=== PATIENT | female | born 1965 | race Caucasian/White ===

== ENCOUNTER 2017-12-22 09:45 | Emergency (ER) | payer MEDICARE, SELFPAY ==
[2017-12-22 09:47] VITALS: BP 143/92; PULSE 113; RESP 16; TEMP 36.7; O2SAT 97; BMI 43.4
--- NOTE | 2017-12-22 10:02 | EKG12_ITS ---
Test Reason : DYSRHYTHMIA Blood Pressure : / mmHG Vent. Rate : 106 BPM Atrial Rate : 106 BPM P-R Int : 148 ms QRS Dur : 104 ms QT Int : 352 ms P-R-T Axes : 020 -26 -13 degrees QTc Int : 467 ms Sinus tachycardia Leftward axis Incomplete right bundle branch block Nonspecific T wave abnormality Abnormal ECG Confirmed by CALIN DELGADILLO, LE ([id number]), metropolitan editor WILMA PRYOR ([id number] on 12/24/2017 10:15:17 AM Referred By: TAYLOR Confirmed By:LE LAYTON MD
--- NOTE | 2017-12-22 10:02 | CT_ITS ---
STUDY: CT BRAIN WITHOUT CONTRAST REASON FOR EXAM: Female, 52 years old. Confusion RADIATION DOSAGE (If Supplied By Facility): CTDIvol = ( 44.99 ) mGy, DLP = ( 779.24 ) mGycm TECHNIQUE: Transaxial CT imaging of the brain was performed without administration of intravenous contrast material. Individualized dose optimization techniques were used for this CT. COMPARISON: 01/25/2013 FINDINGS: Normal soft tissue structures. Normal calvarium. Normal size ventricles and extra-axial spaces for the patient's age. Normal white matter tracts of the cerebral hemispheres. Normal basal ganglia and thalami. Normal brainstem. Normal cerebellum. There is no intracranial hemorrhage. There are no findings of an acute ischemic infarction. Normal visualized paranasal sinuses. CT/Brain/Head without Contrast IMPRESSION: Normal unenhanced CT scan of the brain. Electronically Signed: Camron Yu DO at 11:07 EST Tel , Service support ,
--- NOTE | 2017-12-22 10:03 | RAD_ITS ---
STUDY: X-RAY CHEST REASON FOR EXAM: Female, 52 years old. Generalized illness TECHNIQUE: PA and lateral views of the chest. COMPARISON: 01/14/2013 FINDINGS: Lungs are adequately inflated. Elevated right hemidiaphragm. Lungs are clear otherwise. There is no demonstrated pleural abnormality. Normal size heart. Normal mediastinum and oni. Normal visualized pulmonary arteries. Normal visualized aortic arch and descending thoracic aorta. Normal visualized thoracic spine. Normal visualized ribs, clavicles, and shoulders. There is no demonstrated abnormality of the visualized soft tissue structures of the upper abdomen. RAD/Chest PA and Lateral IMPRESSION: Elevated right hemidiaphragm. Lungs are clear. Electronically Signed: Carmon Yu DO at 11:29 EST Tel , Service support ,
[2017-12-22 10:22] LABS: Absolute Lymphocyte Count 2.06 X10^3/ul (0.83-4.51); Absolute Neutrophil Count 6.4 X10^3/uL (2.0-7.7); Basophil# 0.02 X10^3/uL; Basophil% 0.2 % (0-1); Eosinophil# 0.22 X10^3/uL; Eosinophils% 2.3 % (0-5); Hematocrit 43.5 % (37-47); Hemoglobin 13.8 g/dl (12.0-15.0); Lymphocyte # 2.06 X10^3/ul (4.0); Lymphocyte % 21.9 % (19-41); Mean Corp Hgb Conc 31.7 g/gl (32-36); Mean Corpuscular Hgb 30.1 pg (27.0-32.0); Mean Corpuscular Volume 94.8 fL (81-99); Mean Platelet Vol. 10.4 fl (6.2-12.0); Monocyte# 0.66 X10^3/uL; Neutrophil # 6.43 X10^3/uL (2.7-7.7); Neutrophil % 68.4 % (47-70); Platelet Count 285 K/mm3 (150-450); RBC Distribution Width CV 14.8 % (11.6-14.6); RBC Distribution Width SD 48.7 fl (35.1-43.9); Red Blood Count 4.59 M/mm3 (4.2-5.4); White Blood Count 9.4 K/mm3 (4.4-11.0)
[2017-12-22 10:23] LABS: POSITIVE COUNT NO; POSITIVE DIFFERENTIAL NO; POSITIVE MORPHOLOGY NO
--- NOTE | 2017-12-22 10:30 | ED.VISSUMM ---
- ER Visit Summary Date of Service: 12/22/17 Chief Complaint: Multiple complaints History of Present Illness: The patient is a 52 F presenting with multiple symptoms that have been present for the past year. She has been seeing her primary care physician and was diagnosed with depression and anxiety that occurred after her divorce a few years ago. Over the past year, she states that she has been eating quite a lot and has gained approximately 80 pounds. She subsequently has shortness of breath that is somewhat worse when she lays flat. She denies chest pain or abdominal pain at this time but her daughter states that she has complained of chest pain and shortness of breath at home intermittently for the past several months and her daughter also states that she has been somewhat confused at time and that her personality has changed over the past year. She has been taking antidepressants and anxiety medicine with some improvement. She did not want to come to the hospital today but her daughter and other family members were with her preparing for [employer] and talked her into coming here to get checked. They are concerned that she could have hypothyroidism or other electrolyte problem. She herself states that her symptoms are simply from weight gain and she has gained weight because she has been eating a lot more than she did in the past and her activity has decreased markedly. She admits to occasionally feeling depressed but denies ever having suicidal thoughts or ideation. Her family is not concerned for suicide risk either. Physical Examination: Vitals are within normal limits. She is not in distress. She is awake, alert, and interactive. She is smiling and well-appearing. Neck is supple. Heart tones are regular and without murmur. Lungs are clear bilaterally with good air movement. Abdomen is soft and nontender. She has no focal or lateralizing neuro findings. She does have 1+ symmetric lower extremity edema but no tenderness along the lower extremity venous system or palpable cords. Mental status examination is normal. Her thought content is normal. She denies suicidal thoughts or ideation. She is forward thinking. Judgment and thought content appears normal. Test Results: Labs are basically within normal limits. EKG is unremarkable. TSH normal. Beta atretic peptide normal. EKG unremarkable. Chest x-ray reveals an elevated right hemidiaphragm but no other obvious acute abnormalities. Emergency Department Course and Treatment: Her symptoms are basically chronic in nature. She has multiple family members at the bedside and they are quite worried about her weight gain and wanted an extensive evaluation done in the emergency department. I am not finding any obvious acute abnormalities and I think that she can safely be discharged home to follow-up with her primary care physician. They are comfortable with this and will assist with arranging these appointments. Treatment Plan: Follow-up with primary care physician Disposition: Home in stable condition Impression: Chronic pain, weight gain of uncertain etiology This note was generated with [employer] dictation software. It may contain incorrect words, spelling, and punctuation that were not noted in review of the chart prior to signing ED Disposition - Plan for ED Patient: Chief Complaint: General Illness Instructions: ED Chronic Pain Management Referrals: Charli Plunkett MD [Primary Care Provider] - As soon as possible
[2017-12-22 10:32] VITALS: BP 120/78; PULSE 109; RESP 21; O2SAT 92
[2017-12-22 10:43] LABS: ALB/GLOB Ratio 0.8 RATIO (0.9-2.4); AST(SGOT) 45 U/L (15-37); Alanine Aminotransfer ALT/SGPT 66 U/L (13-56); Albumin, Serum 3.1 g/dL (3.2-5.0); Alkaline Phosphatase 113 U/L (45-117); Anion Gap 8 (5-15); BUN 12 mg/dL (7-18); Calcium,Total 8.4 mg/dL (8.5-10.1); Chloride 107 mmol/L (98-107); EST Glomerular Filtration Rate 61 mL/min (>60); Est Glom Filt Rate - Afr Amer 74 mL/min (>60); Estimated Creatinine Clearance 57.87 ml/min; Globulin 4.1 g/dL (2.2-4.2); Glucose 130 mg/dL (74-106); Potassium 3.4 mmol/L (3.5-5.1); Protein, Total 7.2 g/dL (6.4-8.2); Sodium Level 140 mmol/L (136-145); Thyroid Stim Hormone (TSH) 2.81 uIU/mL (0.358-3.74)
[2017-12-22 10:51] LABS: BNP,B-Type NATRIURETIC PEPTIDE 3.1 pg/mL (0-100)
[2017-12-22 11:52] VITALS: BP 134/70; PULSE 75; RESP 14; O2SAT 94
== END 2017-12-22 12:03 | disposition home or self-care (01) ==
PROVIDERS: Emergency Provider Emergency Medicine; Family Provider Family Medicine; PCP Family Medicine
DX: R63.5 Abnormal weight gain (principal); G89.29 Other chronic pain; R07.9 Chest pain, unspecified; R06.02 Shortness of breath; R06.00 Dyspnea, unspecified; F32.9 Major depressive disorder, single episode, unspecified; F41.9 Anxiety disorder, unspecified; Z79.899 Other long term (current) drug therapy
CPT/HCPCS: 70450; 71046; 80053; 83880; 84443; 84484; 85025; 93005; 99284

== ENCOUNTER 2018-08-09 14:36 | Emergency (ER) | payer MEDICARE, SELFPAY ==
[2018-08-09 14:37] VITALS: BP 128/89; PULSE 104; RESP 18; TEMP 36.6; O2SAT 96; BMI 43.2
--- NOTE | 2018-08-09 15:49 | ED.VISSUMM ---
- ER Visit Summary Date of Service: 08/09/18 Chief Complaint: She presents after an injury to her left leg 2 weeks ago. History of Present Illness: The patient is a 52 F she developed a left lateral hematoma just below the knee, she was able to ambulate today she woke up and noticed ecchymoses in her ankle. Again she has no pain and is able to walk her only pain is at the site of impaction. Pain is mild unless she pushes on it and becomes moderate. Physical Examination: Otherwise unremarkable exam, she has a left sided hematoma right below the knee, some ecchymoses in her ankle no joint pain no bony tenderness over the tibia or fibular region. Able to ambulate without any difficulty. Emergency Department Course and Treatment: Patient was reassured, the ecchymosis is from extravasation into the soft tissues, she is reassured she is told about the time course of healing. She feels much better once I reassured her she wants to be discharged home I will send her home. Discharge stable condition Impression: Left leg hematoma This note was generated with [employer] dictation software. It may contain incorrect words, spelling, and punctuation that were not noted in review of the chart prior to signing ED Disposition - Plan for ED Patient: Disposition: Home or Assisted Living Chief Complaint: Lower Extremity Injury Instructions: Contusions (Bruises), ED Hematoma Referrals: Charli Plunkett MD [Primary Care Provider] - 3-5 Days
--- NOTE | 2018-08-09 15:53 | ED.DCSUM_ITS ---
- ER Visit Summary Date of Service: 08/09/18 Chief Complaint: She presents after an injury to her left leg 2 weeks ago. History of Present Illness: The patient is a 52 F she developed a left lateral hematoma just below the knee, she was able to ambulate today she woke up and noticed ecchymoses in her ankle. Again she has no pain and is able to walk her only pain is at the site of impaction. Pain is mild unless she pushes on it and becomes moderate. Physical Examination: Otherwise unremarkable exam, she has a left sided hematoma right below the knee , some ecchymoses in her ankle no joint pain no bony tenderness over the tibia or fibular region. Able to ambulate without any difficulty. Emergency Department Course and Treatment: Patient was reassured, the ecchymosis is from extravasation into the soft tissues, she is reassured she is told about the time course of healing. She feels much better once I reassured her she wants to be discharged home I will send her home. Discharge stable condition Impression: Left leg hematoma This note was generated with [employer] dictation software. It may contain incorrect words, spelling, and punctuation that were not noted in review of the chart prior to signing ED Disposition - Plan for ED Patient: Disposition: Home or Assisted Living Chief Complaint: Lower Extremity Injury Instructions: Contusions (Bruises), ED Hematoma Referrals: Charli Plunkett MD [Primary Care Provider] - 3-5 Days
[2018-08-09 15:55] VITALS: PULSE 96; RESP 16; O2SAT 97
== END 2018-08-09 16:04 | disposition home or self-care (01) ==
PROVIDERS: Emergency Provider Emergency Medicine; Family Provider Family Medicine; PCP Family Medicine
DX: S80.12XA Contusion of left lower leg, initial encounter (principal); W19.XXXA Unspecified fall, initial encounter; Y93.9 Activity, unspecified; Y92.9 Unspecified place or not applicable; Y99.9 Unspecified external cause status; F32.9 Major depressive disorder, single episode, unspecified; Z79.899 Other long term (current) drug therapy
CPT/HCPCS: 99282

== ENCOUNTER 2018-09-08 13:15 | Emergency (ER) | payer MEDICARE, SELFPAY ==
[2018-09-08 13:16] VITALS: BP 141/76; PULSE 132; RESP 26; TEMP 35.5; O2SAT 96; BMI 41.6
--- NOTE | 2018-09-08 14:07 | ED.DCSUM_ITS ---
- ER Visit Summary Date of Service: 09/08/18 Chief Complaint: Migraine History of Present Illness: The patient is a 52 F with a headache. It feels similar to prior migraines. This started this morning. Nothing seemed to bring it on. Associated with nausea and vomiting. Patient has not taken anything for it. No trauma. No fevers. No weakness or numbness. No vision changes or speech changes. Physical Examination: Heart rate 132 and respiratory rate 26. Otherwise vitals unremarkable. Patient appears uncomfortable. She is sitting in a dark room. No acute distress. Alert and oriented. HEENT exam unremarkable. Cranial nerves grossly intact. Normal strength and sensation. Normal coordination. Skin appears normal. Test Results: None indicated Emergency Department Course and Treatment: Patient has multiple drug allergies. She was treated with fluids, Compazine, and Benadryl. Will reassess. On reevaluation, the patient's headache has resolved. There is no indication for imaging or other diagnostic testing. Patient will be discharged. Return for any new or worsening issues. Treatment Plan: As above Disposition: Discharge Impression: 1. Acute migraine This note was generated with [employer] dictation software. It may contain incorrect words, spelling, and punctuation that were not noted in review of the chart prior to signing ED Disposition - Plan for ED Patient: Chief Complaint: Headache Referrals: Charli Plunkett MD [Primary Care Provider] -
[2018-09-08] MEDS: proCHLORPERazine 10 MG/2 ML Vial IV (14:43)
[2018-09-08] MEDS: DiphenhydrAMINE 50 MG/ML Syringe IV (14:43)
[2018-09-08] MEDS: 0.9% Normal Saline 1,000 ML 999 ML IV (14:44)
--- NOTE | 2018-09-08 15:39 | ED.DEP ---
ED Disposition - Plan for ED Patient: Chief Complaint: Headache Instructions: ED Headache Migraine Referrals: Charli Plunkett MD [Primary Care Provider] -
[2018-09-08 15:46] VITALS: PULSE 87; RESP 17; O2SAT 99
== END 2018-09-08 15:47 | disposition home or self-care (01) ==
PROVIDERS: Emergency Provider Emergency Medicine; Family Provider Family Medicine; PCP Family Medicine
DX: G43.909 Migraine, unspecified, not intractable, without status migrainosus (principal); R11.2 Nausea with vomiting, unspecified; Z79.899 Other long term (current) drug therapy
CPT/HCPCS: 96361; 96374; 96375; 99285; J7030

== ENCOUNTER 2019-11-22 15:58 | Emergency (ER) | payer MEDICARE, MEDICAID, SELFPAY ==
[2019-11-22 15:58] VITALS: BP 120/73; PULSE 110; RESP 16; TEMP 37.1; O2SAT 92; BMI 43.2; BMI 43.4
--- NOTE | 2019-11-22 16:57 | RAD_ITS ---
STUDY: X-RAY - THORACIC SPINE REASON FOR EXAM: Female, 54 years old. fall, back pain TECHNIQUE: 4 view(s) of the thoracic spine were obtained. COMPARISON: None. FINDINGS: Normal kyphosis of the thoracic spine. There is no substantial scoliosis. There is multilevel endplate spondylosis of the thoracic vertebrae. There is multilevel disc space narrowing of the thoracic spine. The soft tissue structures are unremarkable. RAD/Thoracic Spine 2 Views IMPRESSION: No acute findings Electronically Signed: Camron Yu DO at 18:35 EST Tel , Service support ,
--- NOTE | 2019-11-22 17:03 | ED.DCSUM_ITS ---
History of Present Illness Chief Complaint: Back Informant: Patient Occurred: Hours - 1.5 Mechanism/Context: Same level fall - My legs gave out from underneath of me Location: back Quality of Pain: Aching Current Severity: Moderate Maximum Severity: Moderate Worsened by: moving, walking Relieved by: remaining still Associated Symptoms: Negative for: Parasthesias, Weakness, Loss of function, Inability to ambulate, Loss of consciousness, Amnesia Narrative: Patient states for the past several years her legs have randomly given out on her, and that occurred again today. As a result, she fell down the carpeted floor and hit her back against a wall. This was in her house. She is complaining of pain across her low back, nonlateralizing. She states after this fall she was able to get up and walk, her legs are working fine now. She denies any numbness, bowel or bladder dysfunction, or saddle anesthesia. She states she has no idea why her legs been giving out for 2 years or more, but then states she had an MRI 2 years ago that diagnosed bulging disks and spinal stenosis. She has never seen a back specialist for those results. - Past Medical History (1) Spinal stenosis Status: Chronic (2) Chronic back pain Status: Chronic (3) Degenerative disc disease, lumbar Status: Chronic (4) Depression Status: Chronic Past Medical History - Allergies and Home Meds Allergies/Adverse Reactions: Allergies NSAIDS (Non-Steroidal Anti-Inflamma Allergy (Verified 08/09/18 14:39) Rash Sulfa (Sulfonamide Antibiotics) Allergy (Verified 08/09/18 14:39) Rash morphine Adverse Reaction (Mild, Verified 08/09/18 14:39) Unknown NAUSEA VOMITING, STOMACH CRAMPS iodine Adverse Reaction (Verified 08/09/18 14:39) Vomiting Primary Care Physician: Charli Plunkett MD [Primary Care Provider] - 1 Week if not improving Surgical History: cholecystectomy, hysterectomy, - - Carpal tunnel Lives: With Family Smoking Status: Never smoker Review of Systems Gastrointestinal: Denies: Abdominal pain, Nausea, Vomiting, Diarrhea, Melena, Hematochezia Genitourinary: Denies: Dysuria, Hematuria, Frequency Musculoskeletal: Reports: Back pain. Denies: Neck pain, Swelling, Extremity Pain Skin: Reports: Abrasions - right forearm. Denies: Wounds Neurological: Denies: Headache, Weakness, Parasthesia, Numbness Physical Exam Vital Signs/Narrative: Vital Signs Temp Pulse Resp BP Pulse Ox 11/22/19 15:58 98.7 F 110 H 16 120/73 92 Inital Vital Signs reviewed: Yes General: Well nourished, Well developed, Obese Head: Normocephalic, Atraumatic. Negative for: Tenderness Eyes: Perrl, EOMI Neck: Nontender, Full ROM Back: - - Diffuse tenderness throughout the thoracic and lumbar spine as well as the paraspinal areas in the lumbosacral region including both pelvic brim's. Pelvis is stable. No obvious signs of trauma on inspection. Extremeties: Full range of motion throughout all joints of all 4 extremities. Skin: Normal color, No rash, Trauma - superficial linear abrasion volar distal right forearm. Neurological: Alert, Oriented x3, Cranial nerves II-XII grossly intact, Normal Strength, Normal Sensation, Normal DTR, Normal Gait Psychological: Normal affect, Normal Mood Diagnostic/Tx/Re-eval - Medical Decision Making On my interpretation, 4 views of the thoracic spine are negative for acute, and 2 views of the lumbar spine show no acute fractures either. She was given an oxycodone. She was ambulatory in the hallways without difficulty. She was advised to follow-up with her doctor regarding her old MRI results, and possible referral to specialist as an outpatient. She does not have cauda equina synd nitesh. Results of radiography returned showing a superior endplate compression fracture of L1, new compared with her old films, however age-indeterminate. Given her mechanism of falling against the wall, I suspect this is not acute from this injury. She is in chronic pain management, has [place] at home to take as needed for pain, and is ambulatory here without any significant discomfort. This is probably age related, or a remote injury, another reason for the patient to follow-up though. ED Disposition - Plan for ED Patient: Disposition: Home or Assisted Living Diagnosis: Acute exacerbation of chronic low back pain, Back contusion, Fall from standing, Spinal stenosis Instructions: CONTUSION, Back Referrals: Charli Plunkett MD [Primary Care Provider] - 1 Week if not improving
[2019-11-22] MEDS: oxyCODONE 5 MG Tablet PO (17:09)
--- NOTE | 2019-11-22 17:30 | RAD_ITS ---
STUDY: X-RAY - LUMBAR SPINE REASON FOR EXAM: Female, 54 years old. fall, low back pain TECHNIQUE: 2 view(s) of the lumbar spine were obtained. COMPARISON: 06/16/2015 FINDINGS: Normal lumbar lordosis. There is no substantial scoliosis. There is a normal alignment of the vertebrae. There is multilevel endplate spondylosis of the lumbar vertebrae. Normal disc space heights. There is no demonstrated fracture. Age indeterminate fracture of the L1 vertebral body; new from 2014 exam The soft tissue structures are unremarkable. RAD/Lumbar Spine 2 or 3 Views IMPRESSION: As above. Age-indeterminate compression fracture of the superior endplate of L1, new from 2014 exam Electronically Signed: Camron Yu DO at 18:34 EST Tel , Service support ,
[2019-11-22 18:26] VITALS: BP 109/77; PULSE 62; RESP 15; O2SAT 95
== END 2019-11-22 18:27 | disposition home or self-care (01) ==
PROVIDERS: Emergency Provider Emergency Medicine; Family Provider Family Medicine; PCP Family Medicine
DX: S30.0XXA Contusion of lower back and pelvis, initial encounter (principal); W18.39XA Other fall on same level, initial encounter; Y93.89 Activity, other specified; Y92.009 Unspecified place in unspecified non-institutional (private) residence as the place of occurrence of the external cause; M48.00 Spinal stenosis, site unspecified; M51.36 Other intervertebral disc degeneration, lumbar region; G89.29 Other chronic pain; F32.9 Major depressive disorder, single episode, unspecified; E66.9 Obesity, unspecified; Z68.41 Body mass index [BMI] 40.0-44.9, adult
CPT/HCPCS: 72070; 72100; 99283

== ENCOUNTER 2020-08-15 16:46 | Emergency (ER) | payer MEDICARE, MEDICAID, SELFPAY ==
[2019-11-22 15:58] VITALS: BMI 43.2
[2020-08-15 16:47] VITALS: BP 124/51; PULSE 121; RESP 24; TEMP 36.4; O2SAT 91; BMI 41.1
[2020-08-15 16:50] VITALS: O2SAT 93
--- NOTE | 2020-08-15 17:12 | EKG12_ITS ---
Test Reason : Blood Pressure : / mmHG Vent. Rate : 116 BPM Atrial Rate : 116 BPM P-R Int : 156 ms QRS Dur : 112 ms QT Int : 334 ms P-R-T Axes : 032 -28 -05 degrees QTc Int : 464 ms Sinus tachycardia Incomplete right bundle branch block Nonspecific ST and T wave abnormality Abnormal ECG Confirmed by TANVI DELGADILLO, JANELLE ([id number]), commissioning editor KIERRA ASCENCIO ([id number]) on 08/17/2020 8:32:40 AM Referred By: ERICK Confirmed By:JANELLE TINAJERO MD
--- NOTE | 2020-08-15 17:12 | CT_ITS ---
STUDY: CT BRAIN WITHOUT CONTRAST REASON FOR EXAM: Female, 54 years old. S/P FALL -- FREQUENT FALLS RECENTLY -- HX- CVA RADIATION DOSAGE (If Supplied By Facility): CTDIvol = ( 44.99 ) mGy, DLP = ( 812.98 ) mGycm TECHNIQUE: Transaxial CT imaging of the brain was performed without administration of intravenous contrast material. Individualized dose optimization techniques were used for this CT. COMPARISON: 12/22/2017 FINDINGS: Normal soft tissue structures. Hyperostosis frontalis interna. Normal size ventricles and extra-axial spaces for the patient''s age. There are areas of decreased attenuation within the white matter tracts of the supratentorial brain, consistent with microvascular disease changes. Age-related changes of the basal ganglia. Normal brainstem. Normal cerebellum. There is no intracranial hemorrhage. There are no findings of an acute ischemic infarction. Normal visualized paranasal sinuses. CT/Brain/Head without Contrast IMPRESSION: No fracture or intracranial hemorrhage. Electronically Signed: Kurt Sosa MD at 18:19 EDT Tel , Service support ,
[2020-08-15] MEDS: 0.9% Normal Saline 1,000 ML 1000 ML IV (17:37)
[2020-08-15] MEDS: Acetaminophen 500 MG Tablet 1000 MG PO (17:37)
[2020-08-15] MEDS: Ondansetron 4 MG/2 ML Vial IV (17:38)
[2020-08-15] MEDS: fentaNYL 100 MCG/2 ML Ampul 50 MCG IV (17:38)
--- NOTE | 2020-08-15 17:50 | RAD_ITS ---
STUDY: X-RAY - LUMBAR SPINE REASON FOR EXAM: Female, 54 years old. FREQUENT FALLS AND SHAKING. PT STATES CHRONIC BACK PAIN. TECHNIQUE: 3 view(s) of the lumbar spine were obtained. COMPARISON: 11/22/2019 FINDINGS: Normal lumbar lordosis. There is no substantial scoliosis. There is a normal alignment of the vertebrae. Interval progression of a compression deformity involving the superior endplate of L1, now with anterior loss of height of approximately 20%. Normal disc space heights. The soft tissue structures are unremarkable. RAD/Lumbar Spine 2 or 3 Views IMPRESSION: Interval progression of a compression deformity involving the superior endplate of L1, now with anterior loss of height of approximately 20%. Electronically Signed: Kurt Sosa MD at 18:26 EDT Tel , Service support ,
[2020-08-15 18:07] LABS: Absolute Lymphocyte Count 1.82 X10^3/uL (0.83-4.51); Absolute Neutrophil Count 11.7 X10^3/uL (2.0-7.7); Basophil# 0.04 X10^3/uL; Basophil% 0.3 % (0-1); Eosinophil# 0.06 X10^3/uL; Eosinophils% 0.4 % (0-5); Hematocrit 46.1 % (37-47); Hemoglobin 14.5 g/dL (12.0-15.0); Lymphocyte # 1.82 X10^3/ul (4.0); Lymphocyte % 12.4 % (19-41); Mean Corp Hgb Conc 31.5 g/dL (32-36); Mean Corpuscular Hgb 28.7 pg (27.0-32.0); Mean Corpuscular Volume 91.1 fL (81-99); Mean Platelet Vol. 10.8 fl (6.2-12.0); Monocyte% 6.8 % (0-10); NRBC Flagged by Analyzer 0 % (0-5); Neutrophil # 11.68 X10^3/uL (2.7-7.7); Neutrophil % 79.8 % (47-70); Platelet Count 376 K/mm3 (150-450); RBC Distribution Width CV 14.4 % (11.6-14.6); RBC Distribution Width SD 48.1 fl (35.1-43.9); Red Blood Count 5.06 M/mm3 (4.2-5.4); White Blood Count 14.6 K/mm3 (4.4-11.0)
[2020-08-15 18:21] LABS: ALB/GLOB Ratio 0.7 RATIO (0.9-2.4); AST(SGOT) 35 U/L (15-37); Alanine Aminotransfer ALT/SGPT 46 U/L (13-56); Albumin, Serum 3.1 g/dL (3.2-5.0); Alkaline Phosphatase 114 U/L (45-117); Anion Gap 8 (5-15); BUN 12 mg/dL (7-18); BUN/Creat Ratio 10.4 RATIO (10-20); Calcium,Total 9.3 mg/dL (8.5-10.1); Chloride 105 mmol/L (98-107); Creatinine, Serum 1.15 mg/dL (0.55-1.02); EST Glomerular Filtration Rate 52 mL/min (>60); Est Glom Filt Rate - Afr Amer 63 mL/min (>60); Estimated Creatinine Clearance 51.14 ml/min; Globulin 4.4 g/dL (2.2-4.2); Glucose 135 mg/dL (74-106); Protein, Total 7.5 g/dL (6.4-8.2); Sodium Level 138 mmol/L (136-145)
[2020-08-15 18:25] LABS: CPK Total, Creatine Kinase 129 U/L (26-192); Lactic Acid 1.9 mmol/L (0.4-1.9)
[2020-08-15 19:38] VITALS: PULSE 111; RESP 24; O2SAT 92
--- NOTE | 2020-08-15 19:40 | RAD_ITS ---
STUDY: X-RAY CHEST REASON FOR EXAM: Female, 54 years old. WEAKNESS, CONFUSION TECHNIQUE: Single frontal view of the chest. COMPARISON: 12/22/2017 FINDINGS: Left basilar atelectasis. There is no demonstrated pleural abnormality. Normal size heart. Normal mediastinum and oni. Normal visualized pulmonary arteries. Normal visualized aortic arch and descending thoracic aorta. Normal visualized thoracic spine. Normal visualized ribs, clavicles, and shoulders. There is no demonstrated abnormality of the visualized soft tissue structures of the upper abdomen. RAD/Chest 1 View (Portable) IMPRESSION: Left basilar atelectasis. Electronically Signed: Kurt Sosa MD at 20:18 EDT Tel , Service support ,
[2020-08-15 20:01] LABS: Bacteria 0 SEEN /hpf (None Seen)
[2020-08-15 20:06] LABS: Color, Urine Amber (Yellow); Glucose, Dipstick Normal (Normal); Ketone-Dipstick 5 mg/dl (Negative); Leukocyte Esterase-Dipstick 100 /ul (Negative); Nitrite-Dipstick Negative (Negative); Occult Blood-Urine 50 /ul (Negative); Protein-Dipstick 30 mg/dl (Negative); Urine Clarity Sl. Cloudy (Clear); Urine Urobilinogen 4 mg/dl (Normal)
[2020-08-15 20:15] LABS: Urine Bilirubin Dipstick 1 mg/dL (Negative)
[2020-08-15 20:17] LABS: Red Blood Cells-Urine 5-10 SEEN /hpf (0-5)
[2020-08-15 20:18] LABS: Mucous, Urine 2+ /hpf (<or=2+); Squamous Epithelial Cells - UA 5-10 SEEN /hpf (5-10); White Blood Cells 0-5 SEEN /hpf (0-5)
[2020-08-15 20:20] LABS: Hyaline Cast 5-10 SEEN /lpf (0-5)
--- NOTE | 2020-08-15 20:45 | ED.VISSUMM ---
- ER Visit Summary Date of Service: 08/15/20 Chief Complaint: Fall History of Present Illness: The patient is a 54 F sees Tj Nash. She is a poor informant. She reports that at times she feels shaky and her legs are jiggly. When this occurs she falls. She states that she fell today. She complains of back pain that is worse than usual following this. She also fell 1 week ago. She denies any blow to the head or loss of consciousness with either of these falls. She is not on anticoagulants. She reports she has chronic neck pains unchanged. She denies any shoulder, wrist, or hip pain. On review of systems patient complains that she also has chronic abdominal pain. She is been nausea and vomited 3-4 times yesterday. No blood in her emesis. No diarrhea. Her last bowel was today. No melena or hematochezia. No dysuria or frequency. She denies any other complaints. Physical Examination: Vitals: Stable. Afebrile. General: Well-nourished and well-developed. Head: Normocephalic atraumatic. Neck: Supple, no lymphadenopathy. No JVD. Nontender. Cardiovascular: Regular rate and rhythm. No murmurs. Respiratory: No respiratory distress. Clear to auscultation bilaterally. Abdominal: Soft, nontender, nondistended, normal bowel sounds. No guarding, rebound, or peritoneal signs. Back: Moderate tensional patient is diffuse over the lumbar spine Extremities: Nontender, no edema. Skin: Normal color, no rash. Neurologic: Alert and oriented ?3. Cranial nerves II through XII are intact. Normal strength and sensation. Psych: Depressed. Test Results: EKG is sinus tachycardia 116 with an incomplete right bundle branch block. This is unchanged from 2018. Troponin is negative. CPK is 129. Lactic acid is 1.9. UA is negative. LFTs marked for albumin 3.1 globulin 4.4. Chem-7 is marked for potassium 3.0, creatinine 1.15, glucose 135. CBC shows a white count 14.6 with 80 segmented neutrophils and 12 lymphocytes. TSH is 2.5. Clinical Impression(s) from Imaging Studies Brain CT 08/15/20 17:12 IMPRESSION: No fracture or intracranial hemorrhage. Electronically Signed: Kurt Sosa MD at 18:19 EDT Tel , Service support , Lumbar Spine X-Ray 08/15/20 17:50 IMPRESSION: Interval progression of a compression deformity involving the superior endplate of L1, now with anterior loss of height of approximately 20%. Electronically Signed: Kurt Sosa MD at 18:26 EDT Tel , Service support , Chest X-Ray 08/15/20 19:40 IMPRESSION: Left basilar atelectasis. Electronically Signed: Kurt Sosa MD at 20:18 EDT Tel , Service support , Emergency Department Course and Treatment: Patient was given K. Dur, Tylenol, and Zofran p.o. She was given fentanyl IV. She is resting more comfortably. Treatment Plan: Patient feels comfortable going home. Infectious quite adamant that she does not want to stay in the hospital. She will be discharged with instructions to follow-up with Dr. Ramsey in 3 to 5 days to see if she is a candidate for kyphoplasty. She given a prescription for [place] and Colace. She does not want to take oral potassium. She is instructed on a high potassium diet. Return to the emergency department for any worsening symptoms. Disposition: To home in improved and stable condition. Impression: 1 1. Acute on chronic L1 compression fracture. 2. Hypokalemia. 3. Generalized weakness. 4. Fall. This note was generated with [employer] dictation software. It may contain incorrect words, spelling, and punctuation that were not noted in review of the chart prior to signing ED Disposition - Plan for ED Patient: Disposition: Home or Assisted Living Instructions: ED Fx Comp Vertebral, ED Prevention Fall Prescriptions: Docusate Sodium [Colace] 100 mg PO DAILY #20 cap Prescription Printed Hydrocodone Bitart/Apap 5-325 [[place] 5MG-325MG] 1 tab PO Q4H PRN PRN 2 Days #10 tab PRN Reason: Pain Prescription Printed Referrals: Shyann Ramsey MD [STAFF PHYSICIAN] - 3-5 Days Kenya Nash PA [Primary Care Provider] - As soon as possible
[2020-08-15] MEDS: HYDROcodone Bitartrate/Apap 5/325 Tablet PO (20:59)
[2020-08-15 21:00] VITALS: BP 152/90; PULSE 109; RESP 21; O2SAT 95
== END 2020-08-15 21:01 | disposition home or self-care (01) ==
LOC: ED 17:26
PROVIDERS: Emergency Provider Emergency Medicine; PCP Physician Assistant
DX: S32.019A Unspecified fracture of first lumbar vertebra, initial encounter for closed fracture (principal); W19.XXXA Unspecified fall, initial encounter; Y93.9 Activity, unspecified; Y92.9 Unspecified place or not applicable; Y99.9 Unspecified external cause status; R29.6 Repeated falls; E87.6 Hypokalemia; R53.1 Weakness; I10 Essential (primary) hypertension; Z86.73 Personal history of transient ischemic attack (TIA), and cerebral infarction without residual deficits
CPT/HCPCS: 70450; 71045; 72100; 80053; 81001; 82550; 83605; 84443; 84484; 85025; 87040; 87086; 87088; 93005; 96361; 96374; 96375; 99285; J7030; P9612; A4216; J2405

== ENCOUNTER 2021-07-15 12:10 | Emergency (ER) | payer MEDICARE, MEDICAID, SELFPAY ==
[2021-07-15 12:11] VITALS: BP 127/79; PULSE 120; RESP 20; TEMP 36.4; O2SAT 93; BMI 46.1
[2021-07-15 15:04] VITALS: BP 129/79; PULSE 112; RESP 23; RESP 24; TEMP 37; O2SAT 91; O2SAT 92
--- NOTE | 2021-07-15 15:31 | RAD_ITS ---
STUDY: X-RAY CHEST REASON FOR EXAM: Female, 55 years old. sob , headache TECHNIQUE: AP COMPARISON: 08/15/2020 FINDINGS: EKG leads project over the chest. Stable elevation of the right hemidiaphragm. No airspace consolidation. There is no demonstrated pleural abnormality. Normal size heart. Normal mediastinum and oni. Normal visualized pulmonary arteries. There is atherosclerotic tortuosity of the aortic arch and descending thoracic aorta. No acute bony process. There is no demonstrated abnormality of the visualized soft tissue structures of the upper abdomen. RAD/Chest 1 View (Portable) IMPRESSION: Stable, nonacute portable x-ray examination of the chest. Electronically Signed: Vernon Pimentel MD (Brooks) at 15:52 EDT , Service support ,
[2021-07-15] MEDS: Acetaminophen 500 MG Tablet 1000 MG PO (16:02)
[2021-07-15 16:06] LABS: Absolute Lymphocyte Count 1.81 X10^3/uL (0.83-4.51); Absolute Neutrophil Count 5.9 X10^3/uL (2.0-7.7); Basophil# 0.06 X10^3/uL; Basophil% 0.7 % (0-1); Eosinophil# 0.05 X10^3/uL; Eosinophils% 0.6 % (0-5); Hematocrit 49.5 % (37-47); Hemoglobin 15.2 g/dL (12.0-15.0); Lymphocyte # 1.81 X10^3/ul (0.83-4.51); Lymphocyte % 20.3 % (19-41); Mean Corp Hgb Conc 30.7 g/dL (32-36); Mean Corpuscular Hgb 28.6 pg (27.0-32.0); Mean Corpuscular Volume 93.2 fL (81-99); Mean Platelet Vol. 10.4 fl (6.2-12.0); Monocyte# 1.07 X10^3/uL; NRBC Flagged by Analyzer 0 % (0-5); Neutrophil # 5.88 X10^3/uL (2.7-7.7); Neutrophil % 66.1 % (47-70); Platelet Count 358 K/mm3 (150-450); RBC Distribution Width CV 14.6 % (11.6-14.6); RBC Distribution Width SD 50.9 fl (35.1-43.9); Red Blood Count 5.31 M/mm3 (4.2-5.4); White Blood Count 8.9 K/mm3 (4.4-11.0)
[2021-07-15 16:20] LABS: ALB/GLOB Ratio 0.6 RATIO (0.9-2.4); AST(SGOT) 145 U/L (15-37); Alanine Aminotransfer ALT/SGPT 93 U/L (13-56); Albumin, Serum 3.1 g/dL (3.2-5.0); Alkaline Phosphatase 107 U/L (45-117); Anion Gap 6 (5-15); BUN 12 mg/dL (7-18); BUN/Creat Ratio 11.2 RATIO (10-20); Calcium,Total 9.4 mg/dL (8.5-10.1); Chloride 101 mmol/L (98-107); Creatinine, Serum 1.07 mg/dL (0.55-1.02); EST Glomerular Filtration Rate 56 mL/min (>60); Est Glom Filt Rate - Afr Amer 68 mL/min (>60); Globulin 4.8 g/dL (2.2-4.2); Glucose 116 mg/dL (74-106); Potassium 3.8 mmol/L (3.5-5.1); Protein, Total 7.9 g/dL (6.4-8.2); Sodium Level 137 mmol/L (136-145)
[2021-07-15 16:22] VITALS: BP 124/69; PULSE 114; RESP 28; TEMP 37.4; O2SAT 94
[2021-07-15 16:44] LABS: Lactic Acid 1.9 mmol/L (0.4-1.9)
[2021-07-15 17:00] VITALS: BP 105/82; PULSE 109; RESP 21; TEMP 36.9; O2SAT 96
--- NOTE | 2021-07-15 17:25 | EDS_ITS ---
HPI History of Present Illness Chief Complaint: Shortness of Breath Informant: patient Onset/Context/Timing Onset: Days (2) Context: gradual Timing: Continuous Quality: Positive for Dyspnea on exertion Worsened by: Exertion Relieved by: Nothing Associated Symptoms cough and rhinorrhea; Negative for post nasal drip, clear sputum, white sputum, yellow sputum or green sputum Narrative Narrative: Patient presents with shortness of breath that has been getting worse over the past 2 days. Patient states it is gradually getting worse. Patient states her grandson tested positive for Covid recently. Patient states she did have her Covid vaccine. Patient states her breathing is worse with any exertion. Patient admits to a cough but denies any sputum production. Patient admits to a sore throat and rhinorrhea. Patient denies any ear pain. Patient admits to some subjective chills. Patient denies any chest pain. Patient states she was tested for Covid when her symptoms began and this was negative. PFSH PFS Medical History Anxiety Chronic indwelling Wahl catheter Depression Migraines Non-smoker Home Medications amitriptyline 300 mg PO QHS 08/15/20 [History Last Taken 08/14/20] docusate sodium 100 mg PO DAILY #20 cap 08/15/20 [Rx Last Taken Unknown] hydrocodone bitartrate 10 mg PO BID 08/15/20 [History Last Taken 08/15/20] Allergy/AdvReac Type Severity Reaction Status Date / Time NSAIDS (Non-Steroidal Allergy Rash Verified 08/15/20 16:52 Anti-Inflamma Sulfa (Sulfonamide Allergy Rash Verified 08/15/20 16:52 Antibiotics) morphine AdvReac Mild Unknown Verified 08/15/20 16:52 iodine AdvReac Vomiting Verified 08/15/20 16:52 Surgical History History of cholecystectomy Social History Smoking Status: Former smoker ROS ROS ED Constitutional Constitutional ED: Reports chills; Denies fever(s) Eyes Eyes: Denies blurry vision or change in vision ENT ENT ED: Denies rhinorrhea or sore throat Cardiovascular Cardiovascular: Denies chest pain or palpitations Respiratory/Chest Respiratory/Chest: Denies cough or dyspnea Gastrointestinal Gastrointestinal: Denies nausea or vomiting Genitourinary Genitourinary ED: Denies dysuria or hematuria Musculoskeletal Musculoskeletal: Reports back pain; Denies neck pain Integumentary Denies abscess or rash Neurologic Neurologic: Reports headache(s); Denies weakness Allergic/Immunologic Allergic/Immunologic ED: Denies mouth swelling or urticaria EXAM Physical Exam Const Vital Signs: 07/15/21 12:11 07/15/21 15:04 07/15/21 16:22 Temperature 97.6 F L 98.6 F 99.3 F H Temperature Source Temporal Oral Oral Pulse Rate 120 H 112 H 114 H Respiratory Rate 20 H 24 H 28 H Respiratory Effort Short of Breath Blood Pressure 127/79 H 129/79 H 124/69 H Blood Pressure Mean 95 95 87 Pulse Ox 93 91 94 Oxygen Delivery Method Room Air Room Air Room Air 07/15/21 17:00 07/15/21 17:50 Temperature 98.5 F 98.5 F Temperature Source Oral Oral Pulse Rate 109 H 107 H Respiratory Rate 21 H 32 H Respiratory Effort Blood Pressure 105/82 H 119/72 Blood Pressure Mean 89 87 Pulse Ox 96 91 Oxygen Delivery Method Room Air Room Air Positive well nourished, well developed and obese General Appearance ED: well developed Nutritional Appearance: obese HEENT Reports moist mucous membranes Neck supple and no JVD Resp normal respiratory effort and clear to auscultation bilaterally Auscultation: diminished lung sounds diffuse Cardio regular rate, regular rhythm and no murmurs GI normal to inspection, nondistended, normoactive bowel sounds and non-tender Palpation: soft Extremity normal to inspection General Extremety ED: Negative for edema or tenderness General Extremity: Negative for edema Neuro oriented x3, CN's II-XII intact bilaterally and no sensory deficits noted Sensorium / Orientation: alert Motor Exam: strength 5/5 throughout Psych mental status grossly normal Skin no rashes or lesions noted MDM MDM MDM Narrative Medical decision making narrative: COVID-19 rapid antigen was obtained and was negative. Patient was given IV fluids. Patient was given albuterol inhaler. Patient was given Tylenol. CBC and comprehensive metabolic profile were within normal limits. Lactate was normal. Portable 1 view chest x-ray was obtained. On my interpretation, lung mitchell are clear. There is normal cardiac silhouette. Bony thorax is normal. There is no acute process noted. Radiologist also interpreted the x-ray and agrees. Patient was able to ambulate here in the emergency department. Patient maintain oxygen saturation of 92 to 93% on room air while ambulating. Even though her COVID-19 rapid antigen was negative. Patient was still instructed to quarantine and take COVID-19 precautions. Patient was instructed to follow-up with her primary care physician in 3 to 5 days. Patient understood and was agreeable with the plan. All questions were answered. Lab Data Attestation: I reviewed the patient's lab results. Labs: Laboratory Results - last 24 hr 07/15/21 07/15/21 07/15/21 15:05 15:05 16:00 WBC 8.9 RBC 5.31 Hgb 15.2 H Hct 49.5 H MCV 93.2 MCH 28.6 MCHC 30.7 L RDW Std Deviation 50.9 H RDW Coeff of Drew 14.6 Plt Count 358 MPV 10.4 Immature Gran % (Auto) 0.300 Neut % (Auto) 66.1 Lymph % (Auto) 20.3 [place] % (Auto) 12.0 H Eos % (Auto) 0.6 Baso % (Auto) 0.7 Absolute Neuts (auto) 5.9 Absolute Lymphs (auto) 1.81 Nucleated RBC % 0 Sodium 137 Potassium 3.8 Chloride 101 Carbon Dioxide 30.0 Anion Gap 6 BUN 12 Creatinine 1.07 H Estim Creat Clear Calc 54.30 Est GFR (MDRD) Af Amer 68 Est GFR (MDRD) Non-Af 56 L BUN/Creatinine Ratio 11.2 Glucose 116 H Lactic Acid 1.9 Calcium 9.4 Total Bilirubin 0.30 AST 145 H ALT 93 H Alkaline Phosphatase 107 Total Protein 7.9 Albumin 3.1 L Globulin 4.8 H Albumin/Globulin Ratio 0.6 L Radiography Chest X-Ray - ED: 1 View, Read by ED Physician, Read by Radiologist and Normal Diagnostic Testing: Radiology Impression Chest X-Ray 07/15/21 15:31 IMPRESSION: Stable, nonacute portable x-ray examination of the chest. Electronically Signed: Vernon Pimentel MD (Bro[place]) at 15:52 EDT , Service support , Discharge Plan Triage Chief Complaint: Shortness of Breath ED Provider: Ace Dixon Dx/Rx/DC Orders Clinical Impression: Viral URI Instructions: ED URI, Viral, No Abx (Adult) Prescriptions: No Action hydrocodone bitartrate 10 mg capsule, oral only, ER 12hr 10 mg PO BID RF: 0 amitriptyline 100 MG tablet 300 mg PO QHS RF: 0 docusate sodium 100 MG capsule 100 mg PO DAILY Qty: 20 RF: 0 Primary Care Provider: Kenya Nash Referrals: Kenya Nash, PA [Primary Care Provider] - 3-5 Days Disposition Disposition: Home, Self Care
[2021-07-15 17:50] VITALS: BP 119/72; PULSE 107; RESP 32; TEMP 36.9; O2SAT 91
[2021-07-15 17:57] VITALS: O2SAT 93
== END 2021-07-15 18:56 | disposition home or self-care (01) ==
PROVIDERS: Emergency Provider Emergency Medicine; PCP Physician Assistant
DX: J06.9 Acute upper respiratory infection, unspecified (principal); Z87.891 Personal history of nicotine dependence
CPT/HCPCS: 71045; 80053; 83605; 85025; 87040; 87426; 94760; 96360; 96361; 99284; J7040; A4216

== ENCOUNTER 2021-10-06 15:35 | Emergency (ER) | payer MEDICARE, MEDICAID, SELFPAY ==
[2021-10-06 15:36] VITALS: BP 160/80; PULSE 98; RESP 20; TEMP 36.2; O2SAT 94; BMI 44.6
--- NOTE | 2021-10-06 15:40 | RAD_ITS ---
STUDY: X-RAY - LEFT WRIST REASON FOR EXAM: Female, 55 years old. INJURY TECHNIQUE: 3 view(s) of the wrist were obtained. COMPARISON: None. FINDINGS: Impacted comminuted intra-articular fracture of the distal radius with volar displacement. Avulsion fracture of the ulnar styloid. Normal radiocarpal articulation. Normal distal radioulnar articulation. Normal carpal bones. Normal carpal articulations. Normal carpometacarpal articulation of the thumb. Normal second through fifth carpometacarpal articulations. Normal visualized metacarpal bones. The soft tissue structures are unremarkable. RAD/Wrist min 3 Views IMPRESSION: Fractures distal radius and ulna as above. Electronically Signed: Hammad Núñez MD at 16:55 EST , Service support ,
--- NOTE | 2021-10-06 16:55 | EKG12_ITS ---
Test Reason : Blood Pressure : / mmHG Vent. Rate : 107 BPM Atrial Rate : 107 BPM P-R Int : 150 ms QRS Dur : 104 ms QT Int : 332 ms P-R-T Axes : 027 -17 -07 degrees QTc Int : 443 ms Sinus tachycardia T wave abnormality, consider anterior ischemia Abnormal ECG Confirmed by TANVI DELGADILLO, JANELLE ([id number]), mapping editor KIERRA ASCENCIO ([id number]) on 10/09/2021 1:20:04 PM Referred By: CHUCHO Confirmed By:JANELLE TINAJERO MD
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
[2021-10-06 17:29] LABS: Absolute Lymphocyte Count 1.67 X10^3/uL (0.83-4.51); Absolute Neutrophil Count 14.5 X10^3/uL (2.0-7.7); Basophil# 0.07 X10^3/uL; Basophil% 0.4 % (0-1); Eosinophils% 0.6 % (0-5); Hematocrit 44.2 % (37-47); Hemoglobin 13.7 g/dL (12.0-15.0); Lymphocyte # 1.67 X10^3/ul (0.83-4.51); Lymphocyte % 9.6 % (19-41); Mean Corpuscular Hgb 28.8 pg (27.0-32.0); Mean Corpuscular Volume 93.1 fL (81-99); Mean Platelet Vol. 10.4 fl (6.2-12.0); Monocyte# 1.02 X10^3/uL; Monocyte% 5.8 % (0-10); NRBC Flagged by Analyzer 0 % (0-5); Platelet Count 362 K/mm3 (150-450); RBC Distribution Width CV 14.6 % (11.6-14.6); RBC Distribution Width SD 50.1 fl (35.1-43.9); Red Blood Count 4.75 M/mm3 (4.2-5.4); White Blood Count 17.5 K/mm3 (4.4-11.0)
[2021-10-06] MEDS: morphine 8 MG/ML Syringe IV ×2 (17:30→18:26)
[2021-10-06] MEDS: Ondansetron 4 MG/2 ML Vial IV (17:30)
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
[2021-10-06 17:44] LABS: Anion Gap 6 (5-15); BUN 10 mg/dL (7-18); BUN/Creat Ratio 11.7 RATIO (10-20); Calcium,Total 8.8 mg/dL (8.5-10.1); Chloride 106 mmol/L (98-107); Creatinine, Serum 0.86 mg/dL (0.55-1.02); EST Glomerular Filtration Rate 72 mL/min (>60); Est Glom Filt Rate - Afr Amer 88 mL/min (>60); Estimated Creatinine Clearance 64.94 ml/min; Glucose 135 mg/dL (74-106); Potassium 3.7 mmol/L (3.5-5.1); Sodium Level 140 mmol/L (136-145)
[2021-10-06 18:11] VITALS: O2SAT 85; O2SAT 92
--- NOTE | 2021-10-06 18:28 | ED.RN ---
PER EMS REPORT PT REFUSED SPLINT UPON ARRIVAL AND TRANSPORT. PT REFUSED CONTRAST FOR CT SCAN. PT REFUSES TO BE TRANSFERRED TO DIFFERENT HOSPITAL, PT STATES I AM FINE. PT NOTED TO HAVE SPO2 OF 85% ON ROOM AIR. ASKED PT IF SHE WEARS OXYGEN, HAS ANY LUNG PROBLEMS OR SLEEP APNEA, SHE STATES NO I AM FINE, MY OXYGEN IS ALWAYS GOOD. APPLIED OXYGEN AND INFORMED DR RANKIN. HE REPORTS SHE MAY NEED TO BE TRANSFERRED, INFORMED PT AND SHE STATES OH NO, I WON'T GO. MY OXYGEN IS ALWAYS LOW. IT IS NORMALLY THAT NUMBER. [facility] IS TRYING TO FIGURE OUT WHY SON CONFRONTS MOTHER YOU JUST TOLD HER YOU HAVE NO PROBLEMS. INFORMED DR RANKIN OF CONVERSATION.
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
--- NOTE | 2021-10-06 19:23 | CT_ITS ---
STUDY: CT BRAIN WITHOUT CONTRAST REASON FOR EXAM: Female, 55 years old. Acute change in mental status status post motor ve RADIATION DOSAGE (If Supplied By Facility): CTDIvol = ( 44.99 ) mGy, DLP = ( 812.98 ) mGycm TECHNIQUE: Transaxial CT imaging of the brain was performed without administration of intravenous contrast material. Individualized dose optimization techniques were used for this CT. COMPARISON: CT brain 08/15/2020 FINDINGS: Normal soft tissue structures. Normal calvarium. Normal size ventricles and extra-axial spaces for the patient''s age. Normal white matter tracts of the cerebral hemispheres. Normal basal ganglia and thalami. Normal brainstem. Normal cerebellum. There is no intracranial hemorrhage. There are no findings of an acute ischemic infarction. Normal visualized paranasal sinuses. CT/Brain/Head without Contrast IMPRESSION: Normal unenhanced CT scan of the brain. Electronically Signed: Hammad Núñez MD at 20:38 EST , Service support ,
--- NOTE | 2021-10-06 19:33 | ED.RN ---
CALLED PHYSICIANS FOR A TRAUMA TRANSFER THE ETA WAS TWO HOURS, I ASKED THEM TO OUT SOURCE IT AND THEY SAID IT WOULD BE 8:30PM.
[2021-10-06 19:34] VITALS: BP 136/98; PULSE 115; RESP 18; O2SAT 94
[2021-10-06 19:44] VITALS: O2SAT 94
[2021-10-06 19:48] LABS: Amphetamine Urine VISTA NEGATIVE (<1000 ng/mL); Barbiturate Urine VISTA NEGATIVE (< 200 ng/mL); Benzodiazepine Urine VISTA NEGATIVE (< 200 ng/mL); Cocaine Urine VISTA NEGATIVE (< 300 ng/mL); Ecstacy Urine VISTA NEGATIVE (< 500 ng/mL); Methadone Urine VISTA NEGATIVE (< 300 ng/mL); PCP Urine VISTA NEGATIVE (< 25 ng/mL); THC Urine VISTA NEGATIVE (< 50 ng/mL); Vista UDS pH Range 6
[2021-10-06 19:52] LABS: Alcohol, Blood (Medical)-Serum < 3.0 mg/dL
[2021-10-06 20:01] LABS: Allen Test Positive; Base Excess 2 mmol/L (-2 to +2); Bicarbonate 28.2 mmol/L (22-26); Blood Gas Specimen Type ART; O2 Delivery Device Room Air; PO2 72 mmHG (75-100); SITE R Radial; SO2 92 % (95-99); Total Carbon Dioxide 30 mmol/L; pCO2 55.1 mmHg (35-45); pH 7.32 (7.35-7.45)
== END 2021-10-06 20:34 | disposition short-term general hospital (02) ==
PROVIDERS: Emergency Provider Emergency Medicine; PCP Physician Assistant
DX: S52.572A Other intraarticular fracture of lower end of left radius, initial encounter for closed fracture (principal); S52.612A Displaced fracture of left ulna styloid process, initial encounter for closed fracture; S27.321A Contusion of lung, unilateral, initial encounter; S30.1XXA Contusion of abdominal wall, initial encounter; V89.2XXA Person injured in unspecified motor-vehicle accident, traffic, initial encounter; Y93.89 Activity, other specified; Y92.9 Unspecified place or not applicable; Y99.9 Unspecified external cause status; J96.01 Acute respiratory failure with hypoxia; J96.02 Acute respiratory failure with hypercapnia; E66.9 Obesity, unspecified; R41.82 Altered mental status, unspecified; Z87.891 Personal history of nicotine dependence
CPT/HCPCS: 36600; 70450; 71045; 71250; 72125; 73110; 74176; 80048; 80307; 82077; 82803; 85025; 93005; 96374; 96375; 96376; 99285; A4216; J2405

== ENCOUNTER 2021-11-07 14:10 | Emergency (ER) | payer MEDICARE, MEDICAID, SELFPAY ==
[2021-11-07 14:11] VITALS: BP 105/80; PULSE 111; RESP 16; TEMP 36.4; O2SAT 92; BMI 43.2
--- NOTE | 2021-11-07 15:11 | RAD_ITS ---
STUDY: X-RAY - LUMBAR SPINE REASON FOR EXAM: Female, 56 years old. trauma, low back pain TECHNIQUE: 2 view(s) of the lumbar spine were obtained. COMPARISON: 08/15/2020 FINDINGS: Normal lumbar lordosis. There is no substantial scoliosis. There is a normal alignment of the vertebrae. No change in the chronic moderate wedge compression fracture of L1. Interval development of mild loss of height of the L2 vertebral body consistent with a new compression fracture which may be acute. Normal disc space heights. The soft tissue structures are unremarkable. RAD/Lumbar Spine 2 or 3 Views IMPRESSION: New mild acute compression fracture of L2. Electronically Signed: Jj Sanchez MD at 16:54 EST Tel , Service support ,
--- NOTE | 2021-11-07 15:17 | RAD_ITS ---
STUDY: X-RAY - PELVIS REASON FOR EXAM: Female, 56 years old. fall, pelvic pain TECHNIQUE: One view of the pelvis was obtained. COMPARISON: None. FINDINGS: There is a non-specific bowel gas pattern. Normal visualized soft tissue structures. Normal bilateral iliac wings, sacroiliac joints and visualized sacrum. Normal visualized bilateral superior and inferior pubic rami. Normal pubic symphysis. Normal ischial tuberosities. Normal visualized right femoral head. Normal right acetabulum. Normal right hip joint. Normal visualized left femoral head. Normal left acetabulum. Normal left hip joint. RAD/Pelvis 1 or 2 Views IMPRESSION: Normal x-ray examination of the pelvis. Electronically Signed: Jj Sanchez MD at 16:53 EST Tel , Service support ,
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
[2021-11-07] MEDS: HYDROcodone Bitartrate/Apap 5/325 Tablet PO (15:39)
== END 2021-11-07 16:52 | disposition home or self-care (01) ==
PROVIDERS: Emergency Provider Emergency Medicine; PCP Physician Assistant
DX: S30.0XXA Contusion of lower back and pelvis, initial encounter (principal); W01.0XXA Fall on same level from slipping, tripping and stumbling without subsequent striking against object, initial encounter; Y93.89 Activity, other specified; Y92.009 Unspecified place in unspecified non-institutional (private) residence as the place of occurrence of the external cause; Y99.8 Other external cause status; E66.9 Obesity, unspecified; Z68.41 Body mass index [BMI] 40.0-44.9, adult; Z87.891 Personal history of nicotine dependence
CPT/HCPCS: 72100; 72170; 99284

== ENCOUNTER 2021-11-12 11:32 | Emergency (ER) | payer MEDICARE, MEDICAID, SELFPAY ==
[2021-11-12 11:33] VITALS: BP 149/93; PULSE 114; RESP 16; TEMP 36.4; O2SAT 92; BMI 44.4
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
--- NOTE | 2021-11-12 12:05 | RAD_ITS ---
STUDY: X-RAY - LEFT RADIUS AND ULNA REASON FOR EXAM: Female, 56 years old. ex fix coming off. I want to see the whole ex fix TECHNIQUE: 2 view(s) of the forearm. COMPARISON: 10/06/2021 FINDINGS: There is no demonstrated soft tissue swelling. Healing comminuted fracture the distal radius with callus formation. Displaced ulnar styloid avulsion fracture. External fixator. RAD/Forearm 2 Views IMPRESSION: Healing fracture the distal radius with an external fixator. Electronically Signed: Jj Sanchez MD at 12:24 EST Tel , Service support ,
== END 2021-11-12 13:13 | disposition home or self-care (01) ==
PROVIDERS: Emergency Provider Emergency Medicine; PCP Physician Assistant
DX: S52.502D Unspecified fracture of the lower end of left radius, subsequent encounter for closed fracture with routine healing (principal); V89.2XXD Person injured in unspecified motor-vehicle accident, traffic, subsequent encounter; E66.9 Obesity, unspecified; F32.A Depression, unspecified; F41.9 Anxiety disorder, unspecified; Z68.41 Body mass index [BMI] 40.0-44.9, adult; Z79.899 Other long term (current) drug therapy; Z87.891 Personal history of nicotine dependence
CPT/HCPCS: 73090; 99282

== ENCOUNTER 2021-12-25 11:44 | Outpatient (CLI) | payer MEDICARE, MEDICAID, SELFPAY ==
[2021-12-25 13:54] LABS: Amphetamine Urine VISTA NEGATIVE (<1000 ng/mL); Barbiturate Urine VISTA NEGATIVE (< 200 ng/mL); Benzodiazepine Urine VISTA NEGATIVE (< 200 ng/mL); Cocaine Urine VISTA NEGATIVE (< 300 ng/mL); Ecstacy Urine VISTA NEGATIVE (< 500 ng/mL); Methadone Urine VISTA NEGATIVE (< 300 ng/mL); PCP Urine VISTA NEGATIVE (< 25 ng/mL); THC Urine VISTA NEGATIVE (< 50 ng/mL); Vista UDS pH Range 6
== END 2021-12-25 23:59 | disposition home or self-care (01) ==
LOC: LAB 11:47
PROVIDERS: PCP Physician Assistant; Visit Provider Anesthesiology Pain Medicine
DX: F11.20 Opioid dependence, uncomplicated (principal)
CPT/HCPCS: 80307

== ENCOUNTER 2022-03-02 16:32 | Outpatient (CLI) | payer MEDICARE, MEDICAID, SELFPAY ==
--- NOTE | 2022-03-02 16:45 | MRI_ITS ---
STUDY: MRI LUMBAR SPINE WITHOUT CONTRAST REASON FOR EXAM: Female, 56 years old. PAIN TECHNIQUE: Standardized fat and water weighted pulse sequences were obtained in the sagittal and axial planes. COMPARISON: Lumbar spine x-ray dated November 07, 2021 FINDINGS: Chronic compression deformities of the L1 and L2 vertebral bodies with 40-50% loss of height. No acute process is seen. Normal lumbar lordosis. There is no substantial scoliosis. Normal conus medullaris that terminates at the T12-L1 level. L1-2: Mild disc space narrowing without significant posterior bulging or herniation. Normal bilateral facet joints. Normal central canal and bilateral lateral recesses. Normal bilateral intervertebral neural foramina. L2-3: Normal endplates. Mild disc desiccation. Normal disc height and morphology. Normal bilateral facet joints. Normal central canal and bilateral lateral recesses. Normal bilateral intervertebral neural foramina. L3-4: Normal endplates. Mild disc desiccation. Normal disc height and morphology. Mild facet joint hypertrophy. Normal central canal and bilateral lateral recesses. Normal bilateral intervertebral neural foramina. L4-5: Normal endplates. Mild disc desiccation. Normal disc height and morphology. Mild facet joint hypertrophy. Normal central canal and bilateral lateral recesses. Normal bilateral intervertebral neural foramina. L5-S1: Normal endplates. Mild disc desiccation. Normal disc height and morphology. Normal bilateral facet joints. Normal central canal and bilateral lateral recesses. Normal bilateral intervertebral neural foramina. Normal visualized sacral ala. Normal visualized paraspinous soft tissue structures. MRI/Spine Lumbar (Routine) IMPRESSION: 1. Multilevel degenerative changes, as described above. 2. Chronic compression deformities of the L1 and L2 vertebral bodies with 40-50% loss of height. No acute process is seen. Electronically Signed: Jarad Lamas MD at 9:30 EDT ,
== END 2022-03-02 23:59 | disposition home or self-care (01) ==
LOC: MRI 16:32
PROVIDERS: Visit Provider Anesthesiology Pain Medicine
DX: M54.16 Radiculopathy, lumbar region (principal)
CPT/HCPCS: 72148

== ENCOUNTER 2022-04-02 17:00 | Emergency (ER) | payer MEDICARE, MEDICAID, SELFPAY ==
[2022-04-02 17:02] VITALS: BP 123/72; PULSE 117; RESP 18; TEMP 36.6; O2SAT 93; BMI 43.0
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
== END 2022-04-02 20:24 | disposition home or self-care (01) ==
PROVIDERS: Emergency Provider Emergency Medicine; Visit Provider Emergency Medicine
DX: M25.532 Pain in left wrist (principal); E66.9 Obesity, unspecified; Z87.891 Personal history of nicotine dependence
CPT/HCPCS: 73110; 99282; A4216

== ENCOUNTER → 2022-05-31 | Outpatient (CLI) | payer MEDICARE, MEDICAID, SELFPAY ==
[2022-05-31 13:33] LABS: Amphetamine Urine VISTA NEGATIVE (<1000 ng/mL); Barbiturate Urine VISTA NEGATIVE (< 200 ng/mL); Benzodiazepine Urine VISTA NEGATIVE (< 200 ng/mL); Cocaine Urine VISTA NEGATIVE (< 300 ng/mL); Ecstacy Urine VISTA NEGATIVE (< 500 ng/mL); Methadone Urine VISTA NEGATIVE (< 300 ng/mL); PCP Urine VISTA NEGATIVE (< 25 ng/mL); THC Urine VISTA NEGATIVE (< 50 ng/mL); Vista UDS pH Range 6
== END | disposition home or self-care (01) ==
LOC: LAB 11:43
PROVIDERS: Visit Provider Anesthesiology Pain Medicine
DX: F11.20 Opioid dependence, uncomplicated (principal)
CPT/HCPCS: 80307

== ENCOUNTER → 2022-11-02 | Outpatient (CLI) | payer MEDICARE, MEDICAID, SELFPAY ==
--- NOTE | 2022-11-02 11:05 | RAD_ITS ---
STUDY: X-RAY - PELVIS AND BILATERAL HIPS REASON FOR EXAM: Female, 57 years old. Bilateral hip pain. TECHNIQUE: AP view of the pelvis.? 2 views of the right hip, and 2 views of the left hip were obtained. COMPARISON: None. FINDINGS: There is a non-specific bowel gas pattern. Normal visualized soft tissue structures. Normal bilateral iliac wings, sacroiliac joints and visualized sacrum. Normal bilateral superior and inferior pubic rami. Normal pubic symphysis. Normal bilateral ischial tuberosities. Mild arthrosis of both hips. RAD/Hips B/L min 2 views w/ Pelvis IMPRESSION: Mild arthrosis of both hips. No acute abnormality, evidence of erosive changes/fusion. Electronically Signed: Dante Dominguez, at 13:55 EST ,
== END | disposition home or self-care (01) ==
LOC: RAD 10:59
PROVIDERS: Referring Provider Anesthesiology Pain Medicine; Visit Provider Anesthesiology Pain Medicine
DX: M16.0 Bilateral primary osteoarthritis of hip (principal)
CPT/HCPCS: 73521

== ENCOUNTER → 2022-12-13 | Outpatient (CLI) | payer MEDICARE, MEDICAID, SELFPAY ==
[2022-12-13 14:39] LABS: Amphetamine Urine VISTA NEGATIVE (<1000 ng/mL); Barbiturate Urine VISTA NEGATIVE (< 200 ng/mL); Benzodiazepine Urine VISTA NEGATIVE (< 200 ng/mL); Cocaine Urine VISTA NEGATIVE (< 300 ng/mL); Ecstacy Urine VISTA POSITIVE (< 500 ng/mL); Methadone Urine VISTA NEGATIVE (< 300 ng/mL); PCP Urine VISTA NEGATIVE (< 25 ng/mL); THC Urine VISTA NEGATIVE (< 50 ng/mL); Vista UDS pH Range 6
== END | disposition home or self-care (01) ==
LOC: LAB 14:01
PROVIDERS: Referring Provider Anesthesiology Pain Medicine; Visit Provider Anesthesiology Pain Medicine
DX: F11.20 Opioid dependence, uncomplicated (principal)
CPT/HCPCS: 80307

== ENCOUNTER → 2023-05-02 | Outpatient (CLI) | payer MEDICARE, MEDICAID, SELFPAY ==
--- NOTE | 2023-05-02 11:17 | RAD_ITS ---
STUDY: X-RAY - CERVICAL SPINE REASON FOR EXAM: Female, 57 years old. Other cervical disc degeneration, unspecified cervical region TECHNIQUE: 3 view(s) of the cervical spine were obtained. COMPARISON: October 06, 2021 FINDINGS: Normal anterior atlantoaxial articulation. Normal odontoid process. Normal cervical lordosis. Normal vertebral bodies. There is mild disc space narrowing and spurring at C5-6. The soft tissue structures are unremarkable. There is no demonstrated fracture of the cervical spine. RAD/Cerv Spine 2 or 3 Views IMPRESSION: Mild degenerative change at C5-6. Electronically Signed: Gee Jewell MD at 23:06 EDT ,
== END | disposition home or self-care (01) ==
LOC: RAD 11:13
PROVIDERS: Referring Provider Anesthesiology Pain Medicine; Visit Provider Anesthesiology Pain Medicine
DX: M50.30 Other cervical disc degeneration, unspecified cervical region (principal)
CPT/HCPCS: 72040

== ENCOUNTER → 2023-07-01 | Outpatient (CLI) | payer MEDICARE, MEDICAID, SELFPAY ==
[2023-07-01 10:28] LABS: Amphetamine Urine VISTA NEGATIVE (<1000 ng/mL); Barbiturate Urine VISTA NEGATIVE (< 200 ng/mL); Benzodiazepine Urine VISTA NEGATIVE (< 200 ng/mL); Cocaine Urine VISTA NEGATIVE (< 300 ng/mL); Ecstacy Urine VISTA NEGATIVE (< 500 ng/mL); Methadone Urine VISTA NEGATIVE (< 300 ng/mL); PCP Urine VISTA NEGATIVE (< 25 ng/mL); THC Urine VISTA NEGATIVE (< 50 ng/mL); Vista UDS pH Range 7
== END | disposition home or self-care (01) ==
LOC: LAB 09:28
PROVIDERS: Referring Provider Anesthesiology Pain Medicine; Visit Provider Anesthesiology Pain Medicine
DX: F11.20 Opioid dependence, uncomplicated (principal)
CPT/HCPCS: 80307

== ENCOUNTER 2023-12-15 15:01 | Emergency (ER) | payer MEDICARE, MEDICAID, SELFPAY ==
[2023-12-15 15:05] VITALS: BP 152/92; PULSE 89; RESP 18; TEMP 36.2; O2SAT 91; BMI 47.9
--- NOTE | 2023-12-15 15:18 | EDS_ITS ---
HPI History of Present Illness Chief Complaint: Wound Check Informant: patient Narrative Narrative: Patient is concerned about wound on the left elbow. About 2 weeks ago patient stepped on grandchild's toy slipped and fell. She got a abrasion/laceration to her left elbow. Over the last days it started to swell and get a little sore. She was seen yesterday [facility] urgent care. She was started on an unknown antibiotic. She was told if is not getting better or if he gets worse to follow-up. She states it is not better today. She states it still sore today. Not draining.. She is not having fevers chills nausea or vomiting. She denies being diabetic. PFSH PFS Medical History Anxiety Chronic indwelling Wahl catheter Depression Left wrist injury Migraines Non-smoker Home Medications amitriptyline 100 mg tablet 300 mg PO QHS sleep 08/15/20 [History Last Taken 08/14/20] docusate sodium 100 mg capsule 100 mg PO DAILY #20 caps 08/15/20 [Rx Last Taken Unknown] hydrocodone bitartrate 10 mg capsule, oral only, extended rel 12 hr 10 mg PO BID pain 08/15/20 [History Last Taken 08/15/20] albuterol sulfate 90 mcg/actuation aerosol inhaler (Ventolin HFA) 2 inh inhalation Q4H PRN PRN Shortness Of Breath Or Wheezing 10/06/21 [History Last Taken Unknown] fluoxetine 20 mg capsule 20 mg PO DAILY 10/06/21 [History Last Taken Unknown] promethazine 25 mg tablet 25 mg PO Q6H PRN PRN Nausea 10/06/21 [History Last Taken Unknown] cephalexin 500 mg capsule 500 mg PO Q6 #40 CAPSULES 12/15/23 [Rx Last Taken Unknown] Allergy/AdvReac Type Severity Reaction Status Date / Time NSAIDS (Non-Steroidal Allergy Rash Verified 12/15/23 15:03 Anti-Inflamma Sulfa (Sulfonamide Allergy Rash Verified 12/15/23 15:03 Antibiotics) morphine AdvReac Mild Unknown Verified 12/15/23 15:03 iodine AdvReac Vomiting Verified 12/15/23 15:03 Surgical History History of cholecystectomy Social History household members: none Smoking Status: Former smoker alcohol intake: current ROS ROS ED Constitutional Constitutional ED: Denies chills or fever(s) ENT ENT ED: Denies rhinorrhea Gastrointestinal Gastrointestinal: Denies abdominal pain, diarrhea, nausea or vomiting Musculoskeletal Musculoskeletal: Denies neck pain Integumentary Reports Abrasions, rash and other Details: See history of present illness. Hematologic/Lymphatic Hematologic/Lymphatic: Denies lymphadenopathy Allergic/Immunologic Allergic/Immunologic ED: Denies urticaria EXAM Physical Exam Narrative Exam Narrative: General: Patient awake alert no acute distress. Normal gait back to the room. HEENT shows no trauma. Mucous membranes are moist. Cardiorespiratory: Easy unlabored breathing. Extremities there is a about 1 cm area that is a little bit open on the posterior left elbow. No drainage. There is a little bit of swelling but its mostly within the olecranon bursa. Does have a very small amount. It is not warm. There is no pain with motion of the elbow whatsoever. There is a 0 indication that this is intra-articular. There is no lymphangitic streaking. Const Vital Signs: 12/15/23 15:05 Temperature 97.2 F L Temperature Source Temporal Pulse Rate 89 Respiratory Rate 18 Blood Pressure 152/92 H Blood Pressure Mean 112 Pulse Ox 91 Oxygen Delivery Method Room Air MDM MDM MDM Narrative Medical decision making narrative: We had the patient bring up her MyChart on her phone. We found that the antibiotics that she is on doxycycline 100 mg twice daily. This was just started yesterday. I do not think we need to alter therapy. I explained that I would prefer not to make an incision into the olecranon bursa. I do not think there is any material to drain. I think I could do more injury than benefit. I will add Keflex to provide more strep coverage. I explained that she should stay on her doxycycline also. We discussed local care, timing to consider failure and reasons for return. Discharge Plan Triage Chief Complaint: Wound Check ED Provider: Tye Reyes Dx/Rx/DC Orders Clinical Impression: Traumatic open wound of left elbow with infection and delayed healing Instructions: ED Wound Check (Infection) Prescriptions: New cephalexin 500 mg capsule 500 mg PO Q6 Qty: 40 0RF No Action hydrocodone bitartrate 10 mg capsule, oral only, ER 12hr 10 mg PO BID Patient Comments: TAKE 1 TABLET BY MOUTH TWICE DAILY amitriptyline 100 MG tablet 300 mg PO QHS docusate sodium 100 MG capsule 100 mg PO DAILY Qty: 20 0RF promethazine 25 mg tablet 25 mg PO Q6H PRN PRN (Reason: Nausea) albuterol sulfate [Ventolin HFA] 90 mcg/actuation HFA aerosol inhaler 2 inh INHALATION Q4H PRN PRN (Reason: Shortness Of Breath Or Wheezing) Patient Comments: Inhale 2 Puffs as instructed every 4 hours as needed for wheezing/shortness of breath. fluoxetine 20 mg capsule 20 mg PO DAILY Primary Care Provider: [facility] Dianelys Kebede Referrals: [facility] Dianelys Kebede [Primary Care Provider] - 3-5 Days Disposition Disposition: Home, Self Care
[2023-12-15] MEDS: Cephalexin 250 MG Capsule 500 MG PO (15:31)
--- OUTSIDE RECORDS SUMMARY | 2023-12-15 15:37 | XMS RPT_ITS | CCD ---
Author Name Unknown Address [address] [place] [address] Organization [facility] Care Team Providers Care Wound Nurse Name Role Phone SAAD HATFIELD, MR [place] ALFARO Primary Care Physician Saad BURGESS Kenya Alfaro Primary Care Provider [phone] Saad BURGESS Kenya Alfaro Primary Care Provider [phone] Saad BURGESS [place] Alfaro Primary Care Provider [phone] SAAD HATFIELD, MR [place] ALFARO Primary Care Physician FRED DELGADILLO, NAIDA Carl Attending Unavailable PARTHA EPPS MD Consulting Unavailable SAAD HATFIELD, MR. [place] ALFARO Primary Care Unavail favian BEST MD., DR. HEIN Admitting Unavail able SAAD HATFIELD, MR. [place] ALFARO Primary Care Unavail favian MCKINNEY MD, ALFRED Consulting Unavailable KHANH RUSSO MD Attending Unavailable JOSE PRESTON MD Consulting Unavailable DARREN BUCKLEY MD Consulting Unavailab KHANH Zhang MD Consulting Unavailable DRE ABLA MD Consulting Unavailable TYREL LISA Consulting Unavailable NAIDA GOLD MD Consulting Unavailable FRANCISCO ZAMBRANO, DR. MARINO Valladares Consulting Unavail able DILIP CARRENO Attending Unavailable SAAD HATFIELD, MR. [place] ALFARO Primary Care Unavail able Saad BURGESS Kenya Alfaro Primary Care Provider [phone] LEOPOLDO CHAIREZ Attending Unavailable Kenya NASH Primary Care Unavailable VICKIE LACY Attending Unavailable Kenya NASH Primary Care Unavailable Kenya NASH Primary Care Unavailable BROWN, MANINDER A Referring Unavailable BROWN, MANINDER A Attending Unavailable NASH, M ANGELINA Primary Care Unavailable NASH, M ANGELINA Attending Unavailable NASH, M ANGELINA Primary Care Unavailable BROWN, MANINDER A Referring Unavailable BROWN, MANINDER A Attending Unavailable NASH, M ANGELINA Primary Care Unavailable VICKIE LACY Attending Unavailable NASH, M ANGELINA Primary Care Unavailable AGATHA FLANAGAN Attending Unavailable GORTY, LOLITA A Referring Unavailable NASH, M ANGELINA Primary Care Unavailable NASH, M ANGELINA Primary Care Unavailable NASH, M ANGELINA Attending Unavailable NASH, M ANGELINA Primary Care Unavailable GORTY, LOLITA A Attending Unavailable NASH, M ANGELINA Primary Care Unavailable NASH, M ANGELINA Attending Unavailable NASH, M ANGELINA Primary Care Unavailable DANIELLE FELIX Attending Unavailable NASH, M ANGELINA Primary Care Unavailable NASH, M ANGELINA Referring Unavailable LEOPOLDO CHAIREZ Attending Unavailable NASH, M ANGELINA Primary Care Unavailable NASH, M ANGELINA Attending Unavailable NASH, M ANGELINA Primary Care Unavailable NASH, M ANGELINA Referring Unavailable NASH, M ANGELINA Primary Care Unavailable NASH, M ANGELINA Attending Unavailable NASH, M ANGELINA Primary Care Unavailable GORTY, LOLITA A Attending Unavailable NASH, M ANGELINA Primary Care Unavailable GORTY, LOLITA A Referring Unavailable NASH, M ANGELINA Primary Care Unavailable GORTY, LOLITA A Referring Unavailable NASH, M ANGELINA Primary Care Unavailable BROWN, MANINDER A Referring Unavailable BROWN, MANINDER A Attending Unavailable Allergies Allergy Classification Reported Allergen(s) Allergy Type Date of Onset Reaction(s) Facility (20 sources) Ibuprofen; Translations: [ibuprofen] Drug Allergy 12-19-19 [facility] Work Phone: (20 sources) Iodine; Translations: [iodine] Drug Allergy 11-07-[address] [place] [address] Work Phone: (20 sources) Naproxen; Translations: [naproxen] Drug Allergy 12-19-[address] [place] [address] Work Phone: (3 sources) QUEtiapine; Translations: [quetiapine] Drug Allergy [facility] Work Phone: (3 sources) Sulfonamides (Antibiotic); Translations: [sulfa drugs] Drug allergy red flush [facility] Work Phone: (20 sources) Acetaminophen / dichloralphenazone / isometheptene; Translations: [[id number] ETAMINOPHN] Drug Allergy 12-19-[address] [facility] Work Phone: (15 sources) Amitriptyline; Translations: [AMITRIPTYLINE HCL] Drug Allergy 05-08-20 07 Other: See Comments [facility] Work Phone: (20 sources) Azithromycin; Translations: [AZITHROMYCIN] Drug Allergy 05-08-[address] [facility] (20 sources) Ketorolac; Translations: [KETOROLAC TROMETHAMINE] Drug Allergy 12-19-[address] [facility] Work Phone: (20 sources) Meperidine; Translations: [MEPERIDINE] Drug Allergy 03-24-[address] [facility] Work Phone: (20 sources) Morphine; Translations: [MORPHINE] Drug Allergy 11-07-[address] [facility] Work Phone: (20 sources) Sulfonamides (Antibiotic); Translations: [SULFA (SULFONAMIDE ANTIBIOTICS)] Propensity to adverse reactions 11-07-[address] [facility] Work Phone: (20 sources) traMADol; Translations: [TRAMADOL HCL] Drug Allergy 12-19-[address] [facility] Work Phone: (20 sources) traZODone; Translations: [TRAZODONE] Drug Allergy 04-10-20 18 Other: See Comments [facility] (20 sources) Propoxyphene N-Acetaminophen; Translations: [PROPOXYPHENE N-ACETAMINOPHEN] Propensity to adverse reactions 12-19-[address] [facility] Work Phone: Medications Current Medications Medication Drug Class(es) Dates Sig (Normalized) Sig (Original) acetaminophen 325 mg oral capsule (3 sources) Start: 10-08-2021 Tylenol 325 mg oral capsule Dose : 650 mg =, Oral, q4h, PRN Pain, scale 1-3, 0 Refill(s) Start Date: 10/08/21 Status: Ordered acyclovir 800 mg oral tablet (12 sources) Herpesvirus Nucleoside Analog DNA Polymerase Inhibitor, Herpes Simplex Virus Nucleoside Analog DNA Polymerase Inhibitor, Herpes Zoster Virus Nucleoside Analog DNA Polymerase Inhibitor Start: 08-22-2023 End: 08-21-2024 take 1 tablet by mouth three times daily acyclovir (ZOVIRAX) 800 mg tablet Indications: Herpes simplex Take 1 tablet by mouth three times a day. Take at first signs of outbreak. 6 tablet 11 08/22/2023 08/21/2024 Active Completed/Discontinued Medications Medication Drug Class(es) Dates Sig (Normalized) Sig (Original) acetaminophen 325 mg / HYDROcodone bitartrate 5 mg oral tablet (14 sources) Opioid Agonist Start: 11-15-2021 HYDROcodone-acetam inophen (NORCO) 5-325 mg per tablet Problems Active Problems Problem Classification Problem Date Documented Da te Episodic/Chronic Anxiety disorders (20 sources) Posttraumatic stress disorder; Translations: [Post-traumatic stress disorder, unspecified] Onset: 4 08-27-2014 Chronic Chronic obstructive pulmonary disease and bronchiectasis (1 source) Unspecified chronic bronchitis; Translations: [Chronic bronchitis, unspecified chronic bronchitis type (HCC)] Onset: 4 Chronic Chronic obstructive pulmonary disease and bronchiectasis (1 source) Bronchitis; Translations: [Bronchitis, not specified as acute or chronic] Onset: 2 Episodic Crushing injury or internal injury (2 sources) Contusion of lung 10-26-2021 Episodic Esophageal disorders (5 sources) Gastroesophageal reflux disease; Translations: [Gastro-esophageal reflux disease without esophagitis] Onset: 3 10-08-2014 Chronic Genitourinary symptoms and ill-defined conditions (3 sources) Retention of urine; Translations: [Retention of urine, unspecified] Onset: 1 Episodic Headache; including migraine (20 sources) Migraine; Translations: [Migraine, unspecified, not intractable, without status migrainosus] Onset: 8 12-26-2020 Chronic Malaise and fatigue (3 sources) Fatigue; Translations: [Other fatigue] Onset: 4 09-29-2023 Episodic Miscellaneous mental health disorders (2 sources) Chronic insomnia; Translations: [Psychophysiologic insomnia] Onset: 3 10-01-2023 Chronic Mood disorders (20 sources) Depressive disorder; Translations: [Other specified depressive episodes] Onset: 2 10-08-2014 Chronic Mood disorders (1 source) Mood disorders; Translations: [Depression, unspecified depression type] Onset: 2 Nausea and vomiting (20 sources) Nausea; Translations: [Nausea] 07-14-2007 Episodic Other fractures (1 source) Collapse of vertebra; Translations: [Collapsed vertebra, not elsewhere classified, site unspecified, initial encounter for fracture] Onset: 1 Episodic Other fractures (2 sources) Fracture of lumbar spine 10-26-2021 Episodic Other gastrointestinal disorders (1 source) Constipation, unspecified; Translations: [Constipation, unspecified] Onset: 1 Episodic Other hereditary and degenerative nervous system conditions (10 sources) System disorder of the nervous system; Translations: [Other specified extrapyramidal and movement disorders] Onset: 6 12-20-2005 Chronic Other hereditary and degenerative nervous system conditions (16 sources) Restless legs; Translations: [Restless legs syndrome] Onset: 6 04-04-2023 Chronic Other hereditary and degenerative nervous system conditions (1 source) Restless legs syndrome; Translations: [Restless leg syndrome] Onset: 3 Chronic Other lower respiratory disease (2 sources) Snoring; Translations: [Snoring] 10-01-2023 Episodic Other lower respiratory disease (1 source) Dyspnea on exertion; Translations: [Other forms of dyspnea] 10-01-2023 Episodic Other lower respiratory disease (1 source) Snoring; Translations: [Snoring] Onset: 4 Episodic Other non-traumatic joint disorders (1 source) Pain of left wrist; Translations: [Pain in left wrist] Episodic Other nutritional; endocrine; and metabolic disorders (20 sources) Body mass index 40+ - severely obese; Translations: [Morbid (severe) obesity due to excess calories] Onset: 8 07-25-2021 Chronic Other nutritional; endocrine; and metabolic disorders (3 sources) Morbid (severe) obesity due to excess calories; Translations: [Morbid obesity with BMI of 45.0-49.9, adult (HCC)] Onset: 1 Chronic Other nutritional; endocrine; and metabolic disorders (1 source) Body mass index (BMI) 45.0-49.9, adult; Translations: [Morbid obesity with BMI of 45.0-49.9, adult ([facility])] Onset: 1 Chronic Respiratory failure; insufficiency; arrest (adult) (1 source) [id number] respiratory failure; Translations: [Acute and chronic respiratory failure, unspecified whether with hypoxia or hypercapnia] Onset: 1 Chronic Spondylosis; intervertebral disc disorders; other back problems (20 sources) Degeneration of lumbar intervertebral disc; Translations: [Other intervertebral disc degeneration, lumbar region] Onset: 1 12-26-2020 Chronic Substance-related disorders (13 sources) Opioid dependence; Translations: [Opioid dependence, uncomplicated] Onset: 3 08-21-2023 Chronic Unclassified (2 sources) Wrist region structure (body structure) 10-26-2021 Past or Other Problems Problem Classification Problem Date Documented Da te Episodic/Chronic Abdominal pain (20 sources) Left lower quadrant pain; Translations: [Left lower quadrant pain] Onset: 12-24-2006 12-24-2006 Episodic Administrative/social admission (20 sources) Marital conflict; Translations: [Problems in relationship with spouse or partner] Onset: 02-01-2012 02-01-2012 Episodic Deficiency and other anemia (20 sources) Nutritional anemia; Translations: [Other vitamin B12 deficiency anemias] Onset: 07-14-2007 07-14-2007 Episodic Diabetes mellitus without complication (14 sources) Prediabetes; Translations: [Prediabetes] Onset: 08-18-2023 08-18-2023 Episodic Fracture of upper limb (16 sources) Closed fracture of distal end of radius; Translations: [Unspecified fracture of the lower end of left radius, subsequent encounter for closed fracture with routine healing] Onset: 04-09-2023 04-09-2023 Episodic Fracture of upper limb (1 source) Unspecified physeal fracture of lower end of radius, right arm, subsequent encounter for fracture with routine healing; Translations: [Displaced physeal fracture of distal end of right radius with routine healing, subsequent encounter] Onset: 08-06-2023 Episodic Miscellaneous mental health disorders (15 sources) Acute insomnia; Translations: [Adjustment insomnia] Onset: 08-18-2023 Episodic Other aftercare (20 sources) Drug therapy finding; Translations: [Encounter for therapeutic drug level monitoring] Onset: 05-26-2020 05-26-2020 Episodic Other fractures (16 sources) Compression fracture of lumbar spine; Translations: [Wedge compression fracture of first lumbar vertebra, sequela] Onset: 04-04-2023 04-04-2023 Episodic Other gastrointestinal disorders (20 sources) Diarrhea; Translations: [Diarrhea, unspecified] Onset: 12-24-2006 12-24-2006 Episodic Other lower respiratory disease (20 sources) Dyspnea; Translations: [Shortness of breath] Onset: 07-18-2021 07-18-2021 Episodic Other screening for suspected conditions (not mental disorders or infectious disease) (5 sources) Blood chemistry abnormal; Translations: [Other specified abnormal findings of blood chemistry] Onset: 10-11-2021 Episodic Pathological fracture (1 source) Age-related osteoporosis with current pathological fracture, vertebra(e), initial encounter for fracture; Translations: [Age-related osteoporosis with current pathological fracture, vertebra(e), initial encounter for fracture (HCC)] Onset: 08-06-2023 Episodic Pulmonary heart disease (20 sources) Other pulmonary embolism without acute cor pulmonale; Translations: [H/O: pulmonary embolus] Onset: 10-11-2021 Episodic Spondylosis; intervertebral disc disorders; other back problems (20 sources) Backache; Translations: [Dorsalgia, unspecified] Onset: 10-15-2011 08-02-2014 Episodic Viral infection (2 sources) Herpes simplex; Translations: [Herpesviral infection, unspecified] Onset: 08-22-2023 08-22-2023 Episodic Results Test Name Value Interpretation Reference Range Facil ity Vital Signs Date Time Vital Sign Value Performing Clinician Facility 10-16-2023 [id number] Body weight 131.54 kg Lolita Swanson MD Work Phone: [facility] 10-01-2023 13:06-050 Body weight 133.36 kg NELLY Nash PA-C Work Phone: [facility] 10-01-2023 13:06-050 Diastolic blood pressure 80 mm[Hg] NA Nash PA-C Work Phone: [facility] 10-01-2023 13:06-0500 Heart rate 102 /min NA Nash PA-C Work Phone: [facility] 10-01-2023 13:06-0500 Respiratory rate 16 /min NA Nash PA-C Work Phone: [facility] 10-01-2023 13:06-0500 SaO2% (BldA) [Mass fraction] 92 % NA Nash PA-C Work Phone: [facility] 10-01-2023 13:06-0500 Systolic blood pressure 128 mm[Hg] NA Nash PA-C Work Phone: [facility] 09-30-2023 10:43-0500 Body weight 131.54 kg Lolita Swanson MD Work Phone: [facility] 08-30-2023 16:14-0400 Body height 167.6 cm Leopoldo Chairez MD Work Phone: [facility] 08-30-2023 16:14-0400 Body weight 131.54 kg Leopoldo Chairez MD Work Phone: [facility] 08-22-2023 10:25-0400 Diastolic blood pressure 78 mm[Hg] NA Nash PA-C Work Phone: [facility] 08-22-2023 10:25-0400 Heart rate 103 /min NA Nash PA-C Work Phone: [facility] 08-22-2023 10:25-0400 Respiratory rate 16 /min NA Nash PA-C Work Phone: [facility] 08-22-2023 10:25-0400 SaO2% (BldA) [Mass fraction] 93 % NA Nash PA-C Work Phone: [facility] 08-22-2023 10:25-0400 Systolic blood pressure 122 mm[Hg] NA Nash PA-C Work Phone: [facility] 08-28-2022 13:13-0400 Diastolic blood pressure 90 mm[Hg] DILIP CARRENO MD [facility] 08-28-2022 13:13-0400 Heart rate 95 /min DILIP CARRENO MD [facility] 08-28-2022 13:13-0400 Respiratory rate 20 /min DILIP CARRENO MD [facility] 08-28-2022 13:13-0400 Systolic blood pressure 129 mm[Hg] DILIP CARRENO MD [facility] 08-28-2022 12:12-0400 Body height 167.6 cm DILIP CARRENO MD [facility] 08-28-2022 12:12-0400 Body temperature 99.86 [degF] DILIP CARRENO MD [facility] 08-28-2022 12:12-0400 Body weight 121 kg DILIP CARRENO MD [facility] 08-28-2022 12:12-0400 Diastolic blood pressure 72 mm[Hg] DILIP CARRENO MD [facility] 08-28-2022 12:12-0400 Heart rate 103 /min DILIP CARRENO MD [facility] 08-28-2022 12:12-0400 Respiratory rate 18 /min DILIP CARRENO MD [facility] 08-28-2022 12:12-0400 Systolic blood pressure 109 mm[Hg] DILIP CARRENO MD [facility] 11-15-2021 10:55-0500 Body temperature 97.52 [degF] NAIDA GOLD MD [facility] 11-15-2021 10:55-0500 Diastolic blood pressure 80 mm[Hg] NAIDA GOLD MD [facility] 11-15-2021 10:55-0500 Heart rate 95 /min NAIDA GOLD MD [facility] 11-15-2021 10:55-0500 Mean blood pressure 94 mm[Hg] NAIDA GOLD MD [facility] 11-15-2021 10:55-0500 Reason For Taking VItal Signs NAIDA GOLD MD [facility] 11-15-2021 10:55-0500 Respiratory rate 18 /min NAIDA GOLD MD [facility] 11-15-2021 10:55-0500 Systolic blood pressure 121 mm[Hg] NAIDA GOLD MD [facility] 11-15-2021 10:44-0500 Body temperature 97.16 [degF] NAIDA GOLD MD [facility] 11-15-2021 10:44-0500 Diastolic Blood Pressure NBP 82 1 NAIDA GOLD MD [facility] 11-15-2021 10:44-0500 Heart rate 91 /min NAIDA GOLD MD [facility] 11-15-2021 10:44-0500 Respiratory rate 16 /min NAIDA GOLD MD [facility] 11-15-2021 10:44-0500 Systolic Blood Pressure NBP 132 1 NAIDA GOLD MD [facility] 11-15-2021 10:31-0500 Diastolic Blood Pressure NBP 76 1 NAIDA GOLD MD [facility] 11-15-2021 10:31-0500 Heart rate 97 /min NAIDA GOLD MD [facility] 11-15-2021 10:31-0500 Mean blood pressure 86 mm[Hg] NAIDA GOLD MD [address] [place] [address] 11-15-2021 10:31-0500 Respiratory rate 16 /min NAIDA GOLD MD [facility] 11-15-2021 10:31-0500 Systolic Blood Pressure NBP 116 1 NAIDA GOLD MD [facility] 11-15-2021 10:20-0500 Diastolic Blood Pressure NBP 74 1 NAIDA GOLD MD [facility] 11-15-2021 10:20-0500 Mean blood pressure 85 mm[Hg] NAIDA GOLD MD [facility] 11-15-2021 10:20-0500 Systolic Blood Pressure NBP 121 1 NAIDA GOLD MD [facility] 11-15-2021 10:04-0500 Mean blood pressure 85 mm[Hg] NAIDA GOLD MD [facility] 11-15-2021 09:49-0500 Body temperature 96.98 [degF] NAIDA GOLD MD [facility] 11-15-2021 07:38-0500 Body weight 41.58 kg/m2 NAIDA GOLD MD [facility] 11-15-2021 07:25-0500 Body height 167.6 cm NAIDA GOLD MD [facility] 11-15-2021 07:25-0500 Body weight 116.8 kg NAIDA GOLD MD [facility] 11-15-2021 07:25-0500 Body weight 41.58 kg/m2 NAIDA GOLD MD [facility] 11-15-2021 07:25-0500 Diastolic blood pressure 74 mm[Hg] NAIDA GOLD MD [facility] 11-15-2021 07:25-0500 Heart rate 98 /min NAIDA GOLD MD [facility] 11-15-2021 07:25-0500 Mean blood pressure 89 mm[Hg] NAIDA GOLD MD [facility] 11-15-2021 07:25-0500 Systolic blood pressure 119 mm[Hg] NAIDA GOLD MD [facility] 10-13-2021 14:35-0500 Body temperature 97.52 [degF] DR MELVINA BEST MD [facility] 10-13-2021 14:35-0500 Diastolic blood pressure 92 mm[Hg] DR MELVINA BEST MD [facility] 10-13-2021 14:35-0500 Heart rate 97 /min DR MELVINA BEST MD [facility] 10-13-2021 14:35-0500 Reason For Taking VItal Signs DR MELVINA BEST MD [facility] 10-13-2021 14:35-0500 Respiratory rate 18 /min DR MELVINA BEST MD [facility] 10-13-2021 14:35-0500 Systolic blood pressure 150 mm[Hg] DR MELVINA BEST MD [facility] 10-13-2021 07:08-0500 Body temperature 97.88 [degF] DR MELVINA BEST MD [facility] 10-13-2021 07:08-0500 Diastolic blood pressure 85 mm[Hg] DR MELVINA BEST MD [facility] 10-13-2021 07:08-0500 Heart rate 97 /min DR MELVINA BEST MD [facility] 10-13-2021 07:08-0500 Respiratory rate 18 /min DR MELVINA BEST MD [facility] 10-13-2021 07:08-0500 Systolic blood pressure 148 mm[Hg] DR MELVINA BEST MD [facility] 10-13-2021 00:21-0500 Body temperature 97.7 [degF] DR MELVINA BEST MD [facility] 10-13-2021 00:21-0500 Diastolic blood pressure 65 mm[Hg] DR MELVINA BEST MD [facility] 10-13-2021 00:21-0500 Heart rate 93 /min DR MELVINA BEST MD [facility] 10-13-2021 00:21-0500 Respiratory rate 18 /min DR MELVINA BEST MD [facility] 10-13-2021 00:21-0500 Systolic blood pressure 107 mm[Hg] DR MELVINA BEST MD [facility] 10-12-2021 14:41-0500 Heart rate 88 /min DR MELVINA BEST MD [facility] 10-12-2021 14:41-0500 Reason For Taking VItal Signs DR MELVINA BEST MD [facility] 10-12-2021 12:02-0500 Heart rate 102 /min DR MELVINA BEST MD [facility] 10-12-2021 12:02-0500 Mean blood pressure 107 mm[Hg] DR MELVINA BEST MD [facility] 10-12-2021 07:03-0500 Reason For Taking VItal Signs DR MELVINA BEST MD [facility] 10-11-2021 10:15-0500 SaO2% (BldA) [Mass fraction] 94.7 % DR MELVINA BEST MD [facility] 10-09-2021 11:30-0500 SaO2% (BldA) [Mass fraction] 91.2 % DR MELVINA BEST MD [facility] 10-09-2021 04:10-0500 Heart rate 111 /min DR MELVINA BEST MD [facility] 10-08-2021 11:09-0500 Mean blood pressure 115 mm[Hg] DR MELVINA BEST MD [facility] 10-08-2021 10:26-0500 Body temperature 97.16 [degF] DR MELVINA BEST MD [facility] 10-08-2021 10:26-0500 Diastolic Blood Pressure NBP [address] MELVINA BEST MD [facility] 10-08-2021 10:26-0500 Mean blood pressure 75 mm[Hg] DR MELVINA BEST MD [facility] 10-08-2021 10:26-0500 Systolic Blood Pressure NBP [address] MELVINA BEST MD [facility] 10-08-2021 10:11-0500 Body temperature 97.16 [degF] DR MELVINA BEST MD [facility] 10-08-2021 10:11-0500 Diastolic Blood Pressure NBP [address] MELVINA BEST MD [facility] 10-08-2021 10:11-0500 Mean blood pressure 87 mm[Hg] DR MELVINA BEST MD [facility] 10-08-2021 10:11-0500 Systolic Blood Pressure NBP [address] MELVINA BEST MD [facility] 10-08-2021 09:52-0500 Diastolic Blood Pressure NBP [address] MELVINA BEST MD [facility] 10-08-2021 09:52-0500 Mean blood pressure 99 mm[Hg] DR MELVINA BEST MD [facility] 10-08-2021 09:52-0500 Systolic Blood Pressure NBP [address] MELVINA BEST MD [facility] 10-08-2021 09:17-0500 Body temperature 96.98 [degF] DR MELVINA BEST MD [facility] 10-08-2021 08:30-0500 Body temperature 98.6 [degF] DR MELVINA BEST MD [facility] 10-08-2021 08:15-0500 Body temperature 98.24 [degF] DR MELVINA BEST MD [facility] 10-07-2021 22:57-0500 Body height [address] MELVINA BEST MD [facility] 10-07-2021 22:57-0500 Body weight 132.[address] MELVINA BEST MD [facility] 10-07-2021 22:57-0500 Body weight 47.58 kg/m2 DR MELVINA BEST MD [facility] 10-06-2021 21:28-0500 Body weight 132.[address] MELVINA BEST MD [facility] Encounters Encounter Date Encounter Type Care Provider Facility Start: 12-13-2023 End: 12-13-2023 ambulatory Kenya NASH Facility:[facility] Start: 12-12-2023 End: 12-12-2023 ambulatory Kenya NASH Facility:[facility] Start: 12-12-2023 Encounter for other preprocedural examination AGATHA FLANAGAN [facility] Start: 12-10-2023 End: 12-10-2023 ambulatory Kenya NASH Facility:[facility] Start: 12-09-2023 End: 12-09-2023 ambulatory Kenya NASH Facility:[facility] Start: 12-02-2023 End: 12-02-2023 ambulatory Kenya NASH Facility:[facility] Start: 11-27-2023 End: 11-27-2023 ambulatory VICKIE LACY Facility:[facility] Start: 11-25-2023 End: 11-25-2023 ambulatory Kenya NASH Facility:[facility] Start: 2023 End: 10-29-2023 ambulatory Kenya NASH Facility:[facility] Start: 10-21-2023 End: 10-21-2023 ambulatory LEOPOLDO CHAIREZ Facility:[facility] Start: 10-21-2023 End: 10-21-2023 ambulatory Leopoldo Chairez MD Work Phone: General Surgery Procedures Date Procedure Procedure Detail Performing Clinician Start: 08-13-2023 Lipid 1996 panel - S ping or Plasma NELLY Nash PAAnita Work Phone: Start: 07-25-2022 Radex wrist complete minimum 3 views Ulices Nolen DO Work Phone: Start: 10-08-2021 Bone structure of ra dius (body structure) NAIDA GOLD MD Start: 01-31-2017 Mammography Esperanza saucedo MA Start: 07-02-2014 Colonoscopy Esperanza saucedo MA Abdominal hysterectomy DR ADELINE BEST MD Cholecystectomy DR MELVINA ROUSE MD Tonsillectomy and adenoidectomy DR MELVINA BEST MD Plan of Treatment Date Care Activity Detail Author Start: 08-13-2028 Lipid 1996 panel - S ping or Plasma Lipid Screening [facility] Start: 08-13-2026 Diabetes Screening Diabetes Screenin g [facility] Start: 04-14-2025 L[address]ID SCREEN L[address]ID SCREEN [facility] Start: 08-06-2024 Covid-19 Vaccine () Covid-19 Vaccine () [facility] Immunizations Immunization Date Immunization Notes Care Provider Fa ricoty 08-06-2023 influenza, injectabl e, quadrivalent, contains preservative NA Nash PA-C Work Phone: [facility] 09-20-2022 Influenza, injectabl e, Madin [place] Canine Kidney, preservative free, quadrivalent NA Nash PA-C Work Phone: [facility] 09-20-2022 zoster vaccine recombinant NA Ansh PA-C Work Phone: [facility] 08-30-2021 SARS-CoV-2 mRNA (tozinameran) vaccine DR MELVINA BEST MD [facility] 08-18-2021 influenza virus vacc ine, unspecified formulation DR MELVINA BEST MD [facility] 06-13-2021 SARS-CoV-2 mRNA (tozinameran) vaccine DR MELVINA BEST MD [facility] 12-26-2020 influenza, injectabl e, quadrivalent, contains preservative Esperanza Harmon MA [facility] 01-13-2020 influenza virus vacc ine, unspecified formulation DR MELVINA BEST MD [facility] 01-13-2020 influenza, injectabl e, quadrivalent, contains preservative Esperanza Harmon MA [facility] 09-16-2018 influenza, injectabl e, quadrivalent, preservative free Esperanza Faustino MA [facility] 09-16-2018 pneumococcal polysaccharide vaccine, 23 valent Esperanza Harmon MA [facility] 10-27-2015 influenza virus vacc ine, unspecified formulation DR MELVINA BEST MD [facility] 10-27-2015 influenza, injectabl e, quadrivalent, contains preservative Esperanza Harmon MA [facility] 10-27-2015 influenza, seasonal, injectable Esperanza Harmon MA [facility] 10-18-2011 tetanus toxoid, redu fausto diphtheria toxoid, and acellular pertussis vaccine, adsorbed Esperanza Harmon MA [facility] Payers Date Payer Category Payer Medicare AETNA MEDICARE A ETNA MEDICARE ASSURE HMO D SNP [id number] 2022-Present [phone] [address] [place] [address] Medicare [id number] 2022 Private Health Insurance [id number] 2020 Medicare [id number] 2019 Medicaid UHC MEDICAID [facility] MEDICAID [id number] 2019-Present [phone] [address] [place] [address] Medicaid [id number] 2019 Medicaid UHC MEDICAID [facility] MEDICAID [id number] 2019-Present [phone] [address] [place] [address] Medicaid [id number] 2019 Private Health Insurance [id number] 2012 Medicare MEDICARE MEDICAR E A AND B [id number] 2012-Present [phone] [address] [address] [place] [address] Medicare [id number] 1965 Unknown [id number] 1965 Unknown [id number] 1965 Unknown [id number] Social History Date Type Detail Facility Start: 01-03-2017 End: 08-06-2023 Ex-smoker (finding) [facility] Sex Assigned At [facility] End: 07-21-2014 History of tobacco use Current smoker [facility] End: 07-21-2014 History of tobacco use Cigarette Smoker [facility] Start: 01-03-2017 End: 04-04-2023 Cigarettes smoked current (pack per day) - Reported 0.5 [facility] Start: 01-03-2017 End: 08-06-2023 Tobacco use and exposure Smokeless tobacco non-user [facility] Start: 11-20-2021 End: 10-21-2023 Alcohol intake Current non-drinker of alcohol (finding) [facility] Start: 1965 Sex Assigned At Not on file [facility] Start: 07-14-2022 End: 07-24-2022 Exposure to SARS-CoV-2 (event) Unable to assess [facility] Work Phone: Start: 07-15-2022 End: 07-25-2022 Exposure to SARS-CoV-2 (event) Not sure [facility] Start: 04-04-2023 End: 08-06-[address] [facility] Adult Depression Screening Assessment [address] [facility] Has the Designer Material, or [employer] threatened to shut off services in your home in past 12Mo No [facility] Are you now , , , , never or living with a partner? [facility] How often to you hav e a drink containing alcohol? Never [facility] Do you feel stress - tense, restless, nervous, or anxious, or unable to sleep at night because your mind is troubled all the time - these days [OSQ] Only a little [facility] (I/We) worried wheth er (my/our) food would run out before (I/we) got money to buy more. Never true [facility] Medical Equipment Procedure Code Equipment Code Equipment Origin al Text Equipment Identifier Dates FDA Start: 10-08-2021 FDA Start: 10-08-2021 Extremity Sole Leveler Machine al Fixator Application U Unknown 10/08/21 Unknown Unknown FDA Start: 10-08-2021 Functional Status Date Assessment Result Facility 08-28-2022 Functional Status Up ad qiana [facility] 08-28-2022 Functional Status Room check performed [facility] Mental Status Date Assessment Result Facility 08-28-2022 Mental Status Orientation Oriented x 4 [facility] 08-28-2022 Mental Status [facility] Clinical Notes 12-20-2005 to 12-13-2023 Leopoldo Chairez MD - 10/21/2023 2:45 PM ESTTelephone Encounter - Ana M Hicks - 10/21/2023 11:32 AM ESTTelephone Encounter - Agatha Ford RN - 10/18/2023 1:26 PM ESTRadiology Note Date & Type Note Facility 12-13-2023 Note HNO ID: [id number] Author: AURELIA HOOVER PA-C Service: ? Author Type: Physician Blood Bank Assistant Type: Progress Notes Filed: 12/13/2023 14:22 Note Text: This note was created using NoteWriter. Subjective Micki Almaguer is a 58 year old female. HPI Presents with a chief complaint of left arm infection. She states she fell 2 weeks ago and had a cut on her elbow. She states her elbow injury really had improved but she noticed yesterday that it started to get red around her elbow. She has had increased pain. No fever. She states she did have MRSA 1 time previously and this reminded her of that. She states she is prediabetic and on metformin but not truly diabetic. She has had some drainage out of it. Review of Systems Constitutional: Negative. HENT: Negative. Respiratory: Negative. Cardiovascular: Negative. Gastrointestinal: Negative. Musculoskeletal: Left arm redness All other systems reviewed and are negative. PAST MEDICAL HISTORY Diagnosis Date Abdominal pain, left lower quadrant Back pain Depressive disorder, not elsewhere classified Diarrhea Diverticulitis of colon (without mention of hemorrhage)(562.11) Dysthymia GERD (gastroesophageal reflux disease) Hernia of unspecified site of abdominal cavity without mention of obstruction or gangrene Irritable bowel syndrome Migraine without status migrainosus Nausea alone Chronic intermittent, since 2005, no known dx, responds to phenergan PMH - PAST MEDICAL HISTORY OF COLITIS PMH - PAST MEDICAL HISTORY OF YEMI Prediabetes PTSD (post-traumatic stress disorder) Pulmonary embolus (HCC) RLS (restless legs syndrome) SOB (shortness of breath) Spinal stenosis Tobacco use disorder Current Outpatient Medications Medication Sig Dispense Refill doxycycline (VIBRA-TABS) 100 mg tablet Take 1 tablet by mouth two times a day for 10 days. 20 tablet 0 Phentermine HCl 15 mg capsule Take 1 capsule by mouth daily before breakfast for 90 days. 30 capsule 2 metFORMIN ER (GLUCOPHAGE XR) 500 mg 24 hr tablet Take 1 tablet by mouth two times a day with meals. 60 tablet 5 albuterol HFA (VENTOLIN HFA) 90 mcg/actuation inhaler Inhale 2 Puffs as instructed every 4 hours as needed for wheezing/shortness of breath. 1 Each 2 acyclovir (ZOVIRAX) 800 mg tablet Take 1 tablet by mouth three times a day. Take at first signs of outbreak. 6 tablet 11 dicyclomine (BENTYL) 10 mg capsule Take 1 capsule by mouth before meals and at bedtime. 60 capsule 2 Amitriptyline HCl 150 mg tablet Take 2 tablets by mouth daily at bedtime. 180 tablet 1 XTAMPZA ER 13.5 mg CSpT TAKE 1 CAPSULE BY MOUTH TWICE DAILY FOR 28 DAYS alendronate (FOSAMAX) 70 mg tablet Take 1 tablet by mouth one time a week. Take with a full glass of water, on an empty stomach; do NOT lie down for 30minutes. (Patient not taking: Reported on 08/19/2023) 12 tablet 3 No current facility-administered medications for this visit. PAST SURGICAL HISTORY Procedure Laterality Date CARPAL TUNNEL RIGHT WRIST dea CHOLECYSTECTOMY laparoscopic COLONOSCOPY W/BIOPSY SINGLE/MULTIPLE 12/24/2006 LIG/TRNSXJ FLP TUBE ABDL/VAG APPR UNI/BI TONSILLECTOMY PRIMARY/SECONDARY AGE 10/> TOTAL ABDOMINAL HYSTERECT W/WO RMVL TUBE OVARY 07/22/2007 Hysterectomy, MARIANO/BTO; low transverse incision FAMILY HISTORY Adopted: Yes Problem Relation Age of Onset Colon Cancer Paternal Grandmother dx'd 80's other (Cancer lung: smoker) Mother Lung, brain Diabetes Father Diabetes Maternal Grandmother Social History Tobacco Use Smoking status: Former Packs/day: 0.50 Years: 30.00 Additional pack years: 0.00 Total pack years: 15.00 Types: Cigarettes Quit date: 07/21/2014 Years since quittin.4 Smokeless tobacco: Never Vaping Use Vaping Use: Never used Substance Use Topics Alcohol use: No Drug use: No Comment: none Objective BP 122/81 Pulse 103 Temp 36.2 ?C (97.1 ?F) Resp 18 Wt 131.8 kg (290 lb 9.6 oz) LMP 02/27/2007 SpO2 93% BMI 46.90 kg/m? Physical Exam Vitals reviewed. Constitutional: Appearance: Normal appearance. HENT: Head: Normocephalic and atraumatic. Musculoskeletal: Arms: Comments: Patient has a healing laceration with a scab over the olecranon of the elbow. There is erythema and mild swelling of the elbow and forearm as indicated above. No lymphangitic streaking. No sign of drainable abscess. She is able to fully flex and extend the elbow. No sign of a septic bursitis. Skin: General: Skin is warm and dry. Neurological: Mental Status: She is alert. Assessment and Plan ASSESSMENT/PLAN: 1. Cellulitis of left upper extremity - ICD9: 682.3, ICD10: L03.114 Patient does have history of MRSA previously, will treat with doxycycline due to sulfa allergy. Discussed if this worsens needs to be seen in the ER. Or if she has a fever. Otherwise follow-up with PCP. Patient agreeable. Aurelia Hoover PA-C [facility] 12-12-2023 Note HNO ID: [id number] Author: AGATHA FLANAGAN APRN.LÓPEZ Service: ? Author Type: Nurse Practitioner Type: Progress Notes Filed: 12/12/2023 15:50 Note Text: [facility] Virtual Visit New Patient Evaluation PATIENT NAME: Micki Almaguer DATE OF SERVICE: December 06, 2023 [facility] Rules [facility] ): This visit was conducted as a Virtual Visit, with patient's permission, via Zoom. It required patient-provider interaction for the medical decision making as documented below. Patient stated first AND last name: Micki Almaguer Patient stated : 1965 Patient stated current location: [place] [address] I have communicated my name, Agatha [email or web address].[email or web address], and active licensure Adult Certified Nurse Practitioner in the Sleep Medicine Center at [facility]. The patient's identity and physical location were verified at the time of this visit. Either the patient or their legal provider service representative has been informed of the risks and benefits of -- and alternatives to -- treatment through a remote evaluation and consents to proceed with the evaluation remotely. Virtual visits are a convenient way for us to meet, but there are some situations in which an in-person evaluation may be required at a later time. I want to check in to confirm your consent to be seen virtually today. Consent given: Yes CONSULTING PROVIDER: Lolita Swanson [address] [facility] [address] REASON FOR CONSULT: Lolita Swanson sends the patient for an opinion about Dx: Snoring [R06.83 (ICD-10-CM)]; Preop testing [Z01.818 (ICD-10-CM)]; Fatigue, unspecified type [R53.83 (ICD-10-CM)]; Morbid obesity with BMI of 45.0-49.9, adult (HCC) [E66.01, Z68.42 (ICD-10-CM)]. My findings and recommendations will be transmitted electronically via shared medical record to the consulting provider. HPI: Micki Almaguer is a 58 year old female. Sleep-related history: Patient is participating in [facility] Bariatric Program since 08/2023. Dr. Swanson ordered an in lab PSG. Scheduled 12/05/2023. Patient left study without being seen. Patient reports when she arrived at the lab for her sleep study the elevator was not working. She was scared to use the steps because of them being short and sharp. Reports she has been waiting for someone to call her back to reschedule her sleep study. SLEEP-WAKE SCHEDULE She is a self-described night person. Bedtime: 5852-5679. She has a hard time falling asleep. Time to fall asleep: Falls asleep easily with the Amitriptyline. Wake time: 9896-5407, without an alarm. After falling asleep: she wakes up 1 time(s) per night, because of drink of water. On weekends, she maintains the same sleep schedule. Average total sleep time (in a 24 hour period): 7-8 hours. SLEEP-RELATED DETAILS Preferred sleep position: side Breathing disturbances and other behaviors during sleep: snoring, gasping, moving around a lot, frequent leg movements, and acting out dreams. I wake up doing something. I wake sewing or cooking dinner. Bruxism: No GERD or aspiration: No Waking up with heart pounding or racing: No Anxiety or rumination: No She reports having an urge to move the legs. The urge to move the legs only occurs in the evening or nighttime. The urge to move the legs begins or worsens during periods of rest or inactivity (e.g. lying or sitting). The urge to move the legs is partially or totally relieved by movements such as walking or stretching, at least as long as the activity continues. The urge to move the legs occurs 5 nights per week and began when she was kid. There is history of iron deficiency or anemia. She has been told that she has leg kicking during sleep. The patient reports having had the following: Acting out dreams. Frequency: nightly. Dream content:Cooking, sewing, playing the TV. Excessive daytime sleepiness / fatigue is a problem. Excessive Daytime sleepiness/fatigue has been a problem for 5 years. There is no history of a viral illness or significant head injury prior to the start of daytime sleepiness. She does not report sleep paralysis or sleep-related hallucinations or cataplexy . WAKE-RELATED DETAILS She does not work. Off work and on social security. Hoping to go back to work. She does have difficulty with memory or concentration. She denies falling asleep or dozing off when driving. She does not take naps. She does not drink caffeinated beverages. There has not been a recent change in weight. Patient Questionnaires Sleep Scores PHQ-9 12/09/2023 12/09/2023 12/12/2023 Score 6 6 4 PROMIS Global Health - (T-Scores - the mean of general population = 50. Five points is a clinically meaningful difference.) 10/01/2023 11/25/2023 11/25/2023 Physical T-Score 34.9 37.4 37.4 Mental T-Score 48.3 45.8 45.8 PAST TREATMENTS: Prescribed medications to help her sleep. PRIOR SLEEP STUDIES: Patient had been scheduled a PSG but left (more content not included)... [facility] 12-10-2023 Note HNO ID: [id number] Author: VICKIE LACY RD Service: ? Author Type: Registered Dietitian Type: Progress Notes Filed: 12/10/2023 15:23 Note Text: This visit was performed virtually due to the COVID-19 epidemic as an effort to protect patients and minimize exposure. Consent from patient received to conduct visit virtually. This Team Access Model visit is a virtual GROUP encounter. It required patient-provider interaction for the medical decision making as documented below. I have communicated my name and active licensure. The patient?s identity and physical location were verified at the time of this visit. Either the patient or their legal provider service representative has been informed of the risks and benefits of -- and alternatives to -- treatment through a remote evaluation and consents to proceed with the evaluation remotely. Patient reports weight (as measured by home scale) of 295 pounds. TOPIC: LIFE STYLE CHANGES: Pre-op weight loss surgery (RYGB): Diet and Exercise PROGRESS: Nutrition Intervention (date of last encounter 11/27/23): 1. Read Nutritional Guidelines Section of Your Guide to Surgery by next [email or web address].[facility].org/-/scassets/files/org/bar iatric/guides/bmig uidebook-april2020.pdf?la=en 2. Do not skip meals. 3. Use protein shake 1x per day to replace any skipped meals or for breakfast -Aim for shakes <5 grams of total sugar, 20-30 grams of protein -Start to explore the protein shakes on page 39 in your Guideline booklet for the two-week full-liquid diet. Examples: Slim Fast Advanced Nutrition [place] Breakfast Essentials ?Light Start? Drink mixed with fat free or 1% milk Atkins 15 gram protein Boost Glucose Control OWYN 4. Use the Healthy Plate Method of portion control for lunch and dinner 4 oz lean meat (fish, chicken, pork tenderloin, turkey, seafood, eggs/cheese) 1/2 plate non starchy vegetables (salad, greens, cabbage, spinach, brussels sprouts, broccoli, carrots, celery, peppers, green beans, cauliflower) 1 cup starch/starchy vegetables (corn, peas, beans, winter squash, sweet potato, brown rice, whole grain pasta, whole grain bread products, quinoa) 5. Physical activity: Aim for 150 minutes of physical activity per week. 6. Drink 64 ounces per day water. Fluids should follow these guidelines: No carbonation, no caffeine, no calories, no alcohol. 7. Start to explore vitamins and minerals for post-op (3 weeks after surgery). You can find these on page 49 in your guideline booklet. Some examples of vitamins/mineral companies: - Bariatric Fusion: 4 Complete Chewable Multivitamins per day (2 in the AM, 2 in the PM) www.bariatricfusion.com - [employer] Medical Health: 1 Bariatric Multivitamin and Calcium Citrate (total of 9662-7616 mg/day)? * take calcium citrate separately from Multivitamin with iron at least 2 hours apart and 4 hours apart from additional calcium www.PWRF.[employer] - Bariatric Choice: 4 Complete Multivitamins (chewables) per day Www.bariatricchoice.com? - Bariatric Advantage: 2 Multivitamins and 3 Calcium Citrate Chewables per day * take calcium citrate separately from Multivitamin with iron at least 2 hours apart and 4 hours apart from additional calcium Www.bariatricadThat's [employer] Pre-op goal weight: 285 pounds Protein needs: 85 gm per day CHANGES IN TREATMENT: Patient met goal(s): No Diagnosis: has not changed. Allergies: Trazodone, Darvocet A500 [Propoxyphene N-Acetaminophen], Demoral [Meperidine], Ibuprofen, Iodine, Midrin [Zhpauhb-Usdbcajos-Fqepvryxbifk ], Morphine, Naprosyn [Naproxen], Sulfa (Sulfonamide Antibiotics), Toradol [Ketorolac Tromethamine], Ultram [Tramadol Hcl], and Zithromax [Azithromycin] Medications: Current Outpatient Medications Medication Sig Dispense Refill metFORMIN ER (GLUCOPHAGE XR) 500 mg 24 hr tablet Take 1 tablet by mouth two times a day with meals. 60 tablet 5 albuterol HFA (VENTOLIN HFA) 90 mcg/actuation inhaler Inhale 2 Puffs as instructed every 4 hours as needed for wheezing/shortness of breath. 1 Each 2 acyclovir (ZOVIRAX) 800 mg tablet Take 1 tablet by mouth three times a day. Take at first signs of outbreak. 6 tablet 11 dicyclomine (BENTYL) 10 mg capsule Take 1 capsule by mouth before meals and at bedtime. 60 capsule 2 Amitriptyline HCl 150 mg tablet Take 2 tablets by mouth daily at bedtime. 180 tablet 1 XTAMPZA ER 13.5 mg CSpT TAKE 1 CAPSULE BY MOUTH TWICE DAILY FOR 28 DAYS alendronate (FOSAMAX) 70 mg tablet Take 1 tablet by mouth one time a week. Take with a full glass of water, on an empty stomach; do NOT lie down for 30minutes. (Patient not taking: Reported on 08/19/2023) 12 tablet 3 No current facility-administered medications for this visit. (currently taking) ; Anthropometrics: Height: Last 1 Encounter Ht Readings: Date: Ht: 08/30/2023 167.6 cm (5' 6 ) Current weight: Last 1 Encounter Wt Readings: Date: Wt: (more content not included)... [facility] 12-09-2023 Note HNO ID: [id number] Author: MANINDER ESPINOSA, PhD Service: ? Author Type: Psychologist Type: Progress Notes Filed: 12/10/2023 08:22 Note Text: Name: Micki Almaguer Date of service: 12/09/2023 Time: 3:00 - 4:00 PM Cost center: [facility] CPT code(s): 7123024 VIRTUAL PSYCHOTHERAPY 55+ Minutes 95033 Brief Emotional/Behavioral Assessment with scoring/documentation I have communicated my name, supervisee/fellow status and the name and active licensure of supervising clinical psychologist, Dr. Rasta Espinosa. The patient signed the Informed Consent for Psychological Evaluation AND Care Form and supervisory addendum prior to this visit. The limits of confidentiality and supervisory procedures that may pertain with any given case were discussed with the patient. Platform: [facility] Address of Patient During Visit: [address] [facility] [address] Session 3 Subjective Reviewed food logs from the previous week and identified patterns and alternatives. Introduced CBT model. Reviewed cognitive distortions and positive coping statements in relation to eating, with a focus on increasing awareness of current patterns. Introduced body image and discussed impact on self-esteem. Focused on the effects of negative appearance-related thoughts on food intake/choices, mood, and post-surgical outcome. Reviewed strategies to improve body image. Patient set a S.M.A.R.T. goal for the upcoming week. Ms. Almaguer was an active participant in the session. She did not verbalize an understanding of the material presented. Patient did not keep food diaries (0 records) and was unable to identify associated barriers. It is difficult to ascertain whether pt learned anything during this session. Patient identified with the following cognitive distortion(s): over-generalization. Pt provided example of thought pattern where she exhibited over-generalization. Pt then expressed she does not utilize this style of thought process despite her aforementioned example. It is unclear whether pt lacks insight or was unable to understand the concept. During body image discussion, she noted multiple times, I can't wait to get skinny. I can't wait to lose my double chins. Therapist attempted to provide psychoeducation and strategies on promoting positive body image, but pt was non-responsive continuing to direct topic of conversation to how surgery would positively impact her physical appearance. S.M.A.R.T. goal (session 1): Switch from coconut pie to sugar free dessert. -MET S.M.A.R.T. goal (session 2): Track protein intake over the next week. -NOT MET; When asked about tracking protein, pt expressed she made barbecue chicken. Therapist then taught pt how to read the nutrition information off the back of cereal box. It is unclear whether pt understands how to interpret nutritional content in food. S.M.A.R.T. goal (session 3): Complete food diaries 3 of 7 days. Objective Alcohol Use Disorders Identification Test - Short Version (AUDIT-C) AUDIT-C 11/25/2023 12/09/2023 12/09/2023 TOTAL SCORE 0 0 0 How often do you have a drink containing alcohol? Never Never Never How many drinks containing alcohol do you have on a typical day when you are drinking? 0 - 2 0 - 2 0 - 2 How often do you have four or more drinks on one occasion? Never Never Never In men, a score of 4 or more is considered positive; in women, a score of 3 or more is considered positive. Generally, the higher the AUDIT-C score, the more likely it is that the patient's drinking is affecting his/her health and safety Generalized Anxiety Disorder Scale (YEMI-7) YEMI - 7 SCORES 11/25/2023 12/09/2023 12/09/2023 YEMI-7 Score 0 2 2 (0-4) minimal anxiety, (5-9) mild anxiety, (10-14) moderate anxiety, (15-21) severe anxiety Patient Health Questionnaire (PHQ-9) PHQ-9 11/25/2023 12/09/2023 12/09/2023 Score 0 6 6 (0-4) minimal depression, (5-9) mild depression, (10-14) moderate depression, (15-19) moderately severe depression, (20-27) severe depression Assessment AND Plan (E66.01, F54) Psychological factors affecting morbid obesity (HCC) (primary encounter diagnosis) Plan: Return in 1 week (on 12/16/2023) for GET SET session #4. Thad Tapia Psy.D. Postdoctoral Fellow Supervision comments: Confirm above. I was present for 60 minutes and co-facilitated the session; pt was the only group member in attendance. Pt did not keep food diaries, nor did she meet her behavioral goal of logging protein intake. She struggled to identify sources of protein, read a nutrition label, and understand session material, raising concerns re: her ability to adhere to postoperative guidelines. Pt will work on keeping food diaries and return to group next week for final session. Maninder Espinosa, Ph.D. Licensed Clinical Psychologist ([id number]) Bariatric AND Metabolic [place] [address] / [address] (more content not included)... [facility] 12-09-2023 Note HNO ID: [id number] Author: Kenya NASH PA-C Service: ? Author Type: Physician Blood Bank Assistant Type: Progress Notes Filed: 12/09/2023 12:32 Note Text: MyChart Zoom Video Visit was used for evaluation of this patient. Location of patient: [place] Patient was offered a virtual/telemedicine appointment in lieu of an office visit due to recommendations to reduce patient exposure to COVID-19. Patient is aware of limitations of performing the visit without a face to face visit in the office setting and agrees. I have communicated my name and active licensure. The patient's identity and physical location were verified at the time of this visit. Either the patient or their legal provider service representative has been informed of the risks and benefits of -- and alternatives to -- treatment through a remote evaluation and consents to proceed with the evaluation remotely. 10:52 AM 58 year old female with c/o wants to discuss weight loss medication again. States metformin making mouth really dry so she stopped. Asking for something else to lose weight. Apparently seeing IM provider through bariatric team, Dr. Lolita Swanson who prescribed metformin. She was told she needs to lose weight for surgery. She felt this was ironic as that is what she is having surgery to do. I explained to her they want her to be able to demonstrate she can lose weight with exercise and diet. We reviewed options for diet. Again, patient is on high dose amitriptyline which has in my opinion been a major factor in her weight gain. She is adamant about not reducing dose further. We reviewed, again, medication options. She wants to try lower phentermine dose, again review this is not my preference. She is afraid to use toperimate or naltrexone and declines. HISTORIES FAMILY HISTORY Adopted: Yes Problem Relation Age of Onset Colon Cancer Paternal Grandmother dx'd 80's other (Cancer lung: smoker) Mother Lung, brain Diabetes Father Diabetes Maternal Grandmother PAST MEDICAL HISTORY Diagnosis Date Abdominal pain, left lower quadrant Back pain Depressive disorder, not elsewhere classified Diarrhea Diverticulitis of colon (without mention of hemorrhage)(562.11) Dysthymia GERD (gastroesophageal reflux disease) Hernia of unspecified site of abdominal cavity without mention of obstruction or gangrene Irritable bowel syndrome Migraine without status migrainosus Nausea alone Chronic intermittent, since 2005, no known dx, responds to phenergan PMH - PAST MEDICAL HISTORY OF COLITIS PMH - PAST MEDICAL HISTORY OF YEMI Prediabetes PTSD (post-traumatic stress disorder) Pulmonary embolus (HCC) RLS (restless legs syndrome) SOB (shortness of breath) Spinal stenosis Tobacco use disorder PAST SURGICAL HISTORY Procedure Laterality Date CARPAL TUNNEL RIGHT WRIST dea CHOLECYSTECTOMY laparoscopic COLONOSCOPY W/BIOPSY SINGLE/MULTIPLE 12/24/2006 LIG/TRNSXJ FLP TUBE ABDL/VAG APPR UNI/BI TONSILLECTOMY PRIMARY/SECONDARY AGE 10/> TOTAL ABDOMINAL HYSTERECT W/WO RMVL TUBE OVARY 07/22/2007 Hysterectomy, MARIANO/BTO; low transverse incision Social History Tobacco Use Smoking status: Former Packs/day: 0.50 Years: 30.00 Additional pack years: 0.00 Total pack years: 15.00 Types: Cigarettes Quit date: 07/21/2014 Years since quittin.3 Smokeless tobacco: Never Vaping Use Vaping Use: Never used Substance Use Topics Alcohol use: No Drug use: No Comment: none ACTIVE PROBLEM LIST Dysthymia Restless Leg Syndrome Abdominal Pain, Left Lower Quadrant Diarrhea Nausea Alone Other Vitamin B12 Deficiency Anemia Back Pain Depression Marital Conflict Ptsd (Post-Traumatic Stress Disorder) Bilateral Low Back Pain With Sciatica Morbid Obesity With Bmi of 45.0-49.9, Adult ([facility]) Encounter for Monitoring Chronic Nsaid Therapy Spinal Stenosis Migraine Without Status Migrainosus, Not Intractable Degeneration of Intervertebral Disc of Lumbar Region Sob (Shortness of Breath) Encounter for Support and Coordination of Transition of Care Compression Fracture of L1 Lumbar Vertebra, Sequela Hx pulmonary embolism: segmental ALBERT Closed Fracture of Lower End of Left Radius With Routine Healing Adjustment Insomnia Anxiety Prediabetes Pulmonary Embolus, Left ([facility]) Opioid Dependence, Uncomplicated ([facility]) Current Outpatient Medications Medication Sig Dispense Refill metFORMIN ER (GLUCOPHAGE XR) 500 mg 24 hr tablet Take 1 tablet by mouth two times a day with meals. 60 tablet 5 albuterol HFA (VENTOLIN HFA) 90 mcg/actuation inhaler Inhale 2 Puffs as instructed every 4 hours as needed for wheezing/shortness of breath. 1 Each 2 acyclovir (ZOVIRAX) 800 mg tablet Take 1 tablet by mouth three times a day. Take at first signs of outbreak. 6 tablet 11 dicyclomine (BENTYL) 10 mg capsule Take 1 capsule by mouth before meals and at bedtime. 60 capsule 2 Amitriptyline HCl 150 mg tablet Take 2 table (more content not included)... [facility] 12-02-2023 Note HNO ID: [id number] Author: MANINDER ESPINOSA, PhD Service: ? Author Type: Psychologist Type: Progress Notes Filed: 12/02/2023 16:57 Note Text: [facility] Bariatric and Metabolic [place] GET SET Group Name: Micki Almaguer Date of service: 12/02/2023 Time: 3:00 - 4:30 PM Cost center: IOANA Espinosa CPT code(s): 4249579 VIRTUAL VISIT GROUP PSYCHOTHERAPY I have communicated my name and active licensure. The patient's identity and physical location were verified at the time of this visit. Either the patient or their legal provider service representative has been informed of the risks and benefits of -- and alternatives to -- treatment through a remote evaluation and consents to proceed with the evaluation remotely. Upon completion of risk/benefit analysis, the patient's presenting problem and apparent condition are considered appropriate for virtual format. The patient does appear to have sufficient knowledge and skills in the use of relevant technology to benefit from virtual format. Platform: [facility] Address of Patient During Visit: [address] [place] [id number] Session 2 Subjective Reviewed food diaries from the previous week and identified patterns and alternatives. Reviewed triggers for stress and symptoms associated with stress. Reviewed stress management strategies with a focus on identifying adaptive versus maladaptive coping. Discussed the importance of self-care and pleasant activities outside of experiences with food. Discussed physical activity, sleep hygiene, and relaxation. Practiced deep breathing in session. Patients set a S.M.A.R.T. goal for the upcoming week. Ms. Almaguer arrived 9 minutes late. She was an active participant in the session. She did verbalize an understanding of the material presented. However, at times she appeared confused and required repetition of concepts (e.g., identifying stressors in her life.). Ms. Almaguer also asked questions that suggested she continues to possess minimal knowledge related to MBS (e.g., Can I eat after surgery? ). Patient did not complete food diaries (0 records). Patient's current stressors include finances and grandchildren trashing her home. She papa by spending time with family and watching YouTube videos. S.M.A.R.T. goal (session 1): Switch from coconut pie to sugar free dessert. -MET; pt reported she switched to sugar-free popsicles S.M.A.R.T. goal (session 2): Track protein intake over the next week. Assessment AND Plan (E66.01, F54) Psychological factors affecting morbid obesity (HCC) (primary encounter diagnosis) Plan: Return in 1 week (on 12/09/2023) for GET SET session #3. Thad Tapia Psy.D. Postdoctoral Fellow Supervision comments: Confirm above. I was present for 90 minutes of the session and co-facilitated the group. Consistent with last week, pt appeared to be confused at times but asked for clarification when needed. She was an active group member. Pt did not keep food diaries but met her behavioral goal of avoiding coconut pie. She initially set a new goal of increasing protein intake but was encouraged to begin by tracking, as she did not have baseline data. Return to group next week. Maninder Espinosa, Ph.D. Licensed Clinical Psychologist ([id number]) Bariatric AND Metabolic [facility] [address] [place] [address] [facility] 11-27-2023 Note HNO ID: [id number] Author: VICKIE LACY RD Service: ? Author Type: Registered Dietitian Type: Progress Notes Filed: 11/27/2023 11:19 Note Text: [facility] Nutrition Therapy: Virtual Consult - Initial Assessment I have communicated my name and active licensure. The patient?s identity and physical location were verified at the time of this visit. Either the patient or their legal provider service representative has been informed of the risks and benefits of -- and alternatives to -- treatment through a remote evaluation and consents to proceed with the evaluation remotely. Nutrition Diagnosis: Overweight/obesity, related to, food/nutrition - related knowledge deficit, as evidenced by BMI above normative standard for age and gender. RECOMMENDED MALNUTRITION DIAGNOSIS: NO MALNUTRITION IDENTIFIED NUTRITION CARE PLAN Nutrition Intervention 11/27/2023: 1. Read Nutritional Guidelines Section of Your Guide to Surgery by next [email or web address] [email or web address] [email or web address]?la=en 2. Do not skip meals. 3. Use protein shake 1x per day to replace any skipped meals or for breakfast -Aim for shakes <5 grams of total sugar, 20-30 grams of protein -Start to explore the protein shakes on page 39 in your Guideline booklet for the two-week full-liquid diet. Examples: Slim Fast Advanced Nutrition [place] [employer] Breakfast Essentials ?Light Start? Drink mixed with fat free or 1% milk Atkins 15 gram protein Boost Glucose Control OWYN 4. Use the Healthy Plate Method of portion control for lunch and dinner 4 oz lean meat (fish, chicken, pork tenderloin, turkey, seafood, eggs/cheese) 1/2 plate non starchy vegetables (salad, greens, cabbage, spinach, brussels sprouts, broccoli, carrots, celery, peppers, green beans, cauliflower) 1 cup starch/starchy vegetables (corn, peas, beans, winter squash, sweet potato, brown rice, whole grain pasta, whole grain bread products, quinoa) 5. Physical activity: Aim for 150 minutes of physical activity per week. 6. Drink 64 ounces per day water. Fluids should follow these guidelines: No carbonation, no caffeine, no calories, no alcohol. 7. Start to explore vitamins and minerals for post-op (3 weeks after surgery). You can find these on page 49 in your guideline booklet. Some examples of vitamins/mineral companies: - Bariatric Fusion: 4 Complete Chewable Multivitamins per day (2 in the AM, 2 in the PM) www.bariatricfusion.com - [employer]: 1 Bariatric Multivitamin and Calcium Citrate (total of 1809-7226 mg/day)? * take calcium citrate separately from Multivitamin with iron at least 2 hours apart and 4 hours apart from additional calcium www.PWRF.[employer] - Bariatric Choice: 4 Complete Multivitamins (chewables) per day Www.bariatricchoice.com? - Bariatric Advantage: 2 Multivitamins and 3 Calcium Citrate Chewables per day * take calcium citrate separately from Multivitamin with iron at least 2 hours apart and 4 hours apart from additional calcium Www.[email or web address].[employer] Pre-op goal weight: 285 pounds Protein needs: 85 gm per day Nutrition Monitoring AND Evaluation: 1-2 lb per week weight loss Need for Follow up: 1+ weeks, Patient presents for initial nutrition consult for preparation in bariatric surgery. Patient is interested in RYGB (Dr. Chairez). Height and weight discussed today. Presents with class III obesity, BMI of 48.42. Significant medical comorbidities include diverticulitis, GERD, IBS, prediabetes. Patient has higher (67% TWL) weight loss expectations, anticipating weight loss of 200 lbs., with desired weight of 150 lbs. following surgery. Patient has basic understanding of weight loss surgery and nutritional implications following surgery. Previous diet attempts include multiple commercial diets, restriction/anorexia? (reports not restricting within the last 8 years), medication management (currently on Metformin). Weight history significant for thin during childhood and teenage years, lost weight with each (3 kids) and then gradual weight gain. Greatest barrier to weight loss in the past include restriction leading to overeating, emotional eating, eating out of boredom. Greatest motivation for surgery includes to look like I used to and to be healthy for myself and my grand kids, reduce back and hip pain. Diet recall indicates inconsistent eating patterns with unplanned and skipped meals and snacks. Diet overall calorically dense with high saturated fat and refined carbohydrate choices, lacking fiber and protein. Fluid intake adequate in water volume, high intake of milk daily. Patient currently not using protein shakes. PA currently not being implemented. [place] body weight: 155 lbs. Excess body weight: 145 lbs. (Based on 300 lbs) Goal weight pre-op: 285 lbs. Protein needs estimated: 85 gm (1.2 g protein/kg I (more content not included)... [facility] 11-25-2023 Note HNO ID: [id number] Author: MANINDER ESPINOSA, PhD Service: ? Author Type: Psychologist Type: Progress Notes Filed: 11/26/2023 09:54 Note Text: [facility] Bariatric and Metabolic [place] GET SET Group Name: Micki Almaguer Date of service: 11/25/2023 Time: 3:00 - 4:30 PM Cost center: IOANA Espinosa CPT code(s): 4736561 VIRTUAL VISIT GROUP PSYCHOTHERAPY [address] Brief Emotional/Behavioral Assessment with scoring/documentation I have communicated my name, supervisee/fellow status and the name and active licensure of supervising clinical psychologist, Dr. Rasta Espinosa. The patient's identity and physical location were verified at the time of this visit. Either the patient or their legal provider service representative has been informed of the risks and benefits of -- and alternatives to -- treatment through a remote evaluation and consents to proceed with the evaluation remotely. Upon completion of risk/benefit analysis, the patient's presenting problem and apparent condition are considered appropriate for virtual format. The patient does appear to have sufficient knowledge and skills in the use of relevant technology to benefit from virtual format. Platform: [employer] Address of Patient During Visit: [address] [facility] [address] Session 1 Subjective Patients attended the first session of a four-week intervention dealing with preparation for bariatric surgery. Patients were reminded of the limits of confidentiality in the group setting and agreed to hold in confidence all matters discussed in the group. Discussed the format of the intervention and reviewed group rules/norms. Discussed individual goals and motivations for pursuing MBS. Provided psychoeducation on specific surgical procedures, risks, and benefits of surgery. Reviewed behavioral changes necessary to optimize surgical outcomes and basic nutritional guidelines. Introduced food diaries and discussed the importance of awareness of eating patterns. Patients set a S.M.A.R.T. goal for the upcoming week. Ms. Almaguer was an active participant in the session. She did verbalize an understanding of the material presented. Patient does appear to be an appropriate group member. Patient is seeking RYGB and is motivated by a desire to be more active with her grandchildren. She identified the following barriers to successful weight management in the past: consumption of sweets/dessert. S.M.A.R.T. goal (session 1): Switch nightly coconut pie consumption to sugar-free dessert over the next week. Objective Patient Data GET SET Quiz: 04/01 Generalized Anxiety Disorder Scale (YEMI-7) YEMI - 7 SCORES 10/14/2023 11/25/2023 11/25/2023 YEMI-7 Score 4 0 0 (0-4) minimal anxiety, (5-9) mild anxiety, (10-14) moderate anxiety, (15-21) severe anxiety Patient Health Questionnaire (PHQ-9) PHQ-9 10/14/2023 11/25/2023 11/25/2023 Score 7 0 0 (0-4) minimal depression, (5-9) mild depression, (10-14) moderate depression, (15-19) moderately severe depression, (20-27) severe depression Assessment AND Plan (E66.01, F54) Psychological factors affecting morbid obesity (HCC) (primary encounter diagnosis) (F50.89) Other specified eating disorder (F43.10) PTSD (post-traumatic stress disorder) Plan: Pt will RTC in 1 week for session #2 of GET SET group. Thad Tapia Psy.D. Postdoctoral Fellow Supervision comments: Confirm above. I was presented for 90 minutes of the session and co-facilitated the group. Pt appeared to be confused at times but asked for clarification when needed. She appears to be an active and motivated group member. Pt expressed concern re: her granddaughter, who is >100 lbs at 7-years-old; provided contact information for [facility]. Pt to keep food diaries and work on making more healthful dessert choices. Would benefit from stimulus control (keeping coconut pie out of the house). Return to group next week. Maninder Espinosa, Ph.D. Licensed Clinical Psychologist ([place] [id number]) Bariatric AND Metabolic [facility] [address] [place] [address] [facility] 11-12-2023 Note HNO ID: [id number] Author: Karen Lopez MD Service: ? Author Type: Physician Type: Progress Notes Filed: 11/12/2023 8:54 PM Note Text: November 12, 2023 Standing PSG Orders signed in the last 90 days None Future PSG Orders signed in the last 90 days Ordered Auth. provider CONSULT TO SLEEP MEDICINE - ADULT [[id number]] 09/30/23 Lolita Swanson MD Assoc. diagnoses: Snoring [R06.83], Preop testing [Z01.818], Fatigue, unspecified type [R53.83], Morbid obesity with BMI of 45.0-49.9, adult ([facility]) [E66.01, Z68.42] Q: Does consulting provider have [facility] Epic access?: A: Yes POLYSOMNOGRAM (PSG) [[id number]] 09/30/23 Lolita Swanson MD Assoc. diagnoses: Snoring [R06.83], Preop testing [Z01.818], Fatigue, unspecified type [R53.83], Morbid obesity with BMI of 45.0-49.9, adult ([facility]) [E66.01, Z68.42] Q: Indications - Select All That Apply: A: Obstructive sleep apnea Q: STOP-BANG conditions - Select All That Apply: A: BMI > 35 kg/m2 A2: AGE > 50 A3: SNORING that is loud or disruptive A4: TIREDNESS, fatigue or sleepiness during the day Q: Comorbidities: A: NONE Q: Is the patient non-ambulatory or will they be accompanied by a caregiver?: A: No Q: Current use of supplemental oxygen during sleep period?: A: No Q: Add supplemental oxygen if needed per sleep lab policy?: A: Yes Q: Is this a repeat Sleep Study?: A: No All Prior Sleep Studies (past 365 days) Some values may be hidden. Unless noted otherwise, only the newest values recorded on each date are displayed. Sleep Studies CONSULT TO SLEEP MEDICINE - ADULT Future Expected: Expires: 09/29/24 POLYSOMNOGRAM (PSG) Future Expected: Expires: 09/29/24 BMI Readings from Last 2 Encounters: 10/16/23 : 46.81 kg/m? 10/01/23 : 47.45 kg/m? PAST MEDICAL HISTORY Diagnosis Date Abdominal pain, left lower quadrant Depressive disorder, not elsewhere classified Diarrhea Diverticulitis of colon (without mention of hemorrhage)(562.11) GERD (gastroesophageal reflux disease) Hernia of unspecified site of abdominal cavity without mention of obstruction or gangrene Irritable bowel syndrome Nausea alone Chronic intermittent, since 2005, no known dx, responds to phenergan PMH - PAST MEDICAL HISTORY OF COLITIS PMH - PAST MEDICAL HISTORY OF YEMI Prediabetes Tobacco use disorder The medical record was reviewed to determine if the proposed sleep study conforms to the [facility] Practice Parameters for the Indications for Polysomnography and Related Procedures, or if the sleep study is indicated for other reasons. Indications for study: HALIE suspected with comorbid medical or sleep disorders: Morbid obesity (BMI>40 kg/m2) Sleep study to be performed: Polysomnogram Special instructions: Split night AHI > 15 Target REM/supine sleep Add EtCO2 or Transcutaneous CO2 if available Disha Gutierrez --- Sleep Medicine Staff Note: I have read the above protocol, edited as needed, and agree to the plan. Karen Lopez MD 8:52 PM, 11/12/2023 [facility] 11-04-2023 Note HNO ID: [id number] Author: Brooke Carbajal Service: ? Author Type: ? Type: Progress Notes Filed: 11/12/2023 8:54 PM Note Text: November 04, 2023 An order has been received for Polysomnogram (PSG) from Dr. Swanson, angy Ortiz. [facility] Staff. Visit prep complete. Comments :No The sleep study is scheduled for 12/05. Insurance: Payor: [employer] MEDICARE / Plan: [employer] MEDICARE ASSURE HMO D SNP / Product Type: Medicare / Payer/Plan Subscr Sex Relation Sub. Ins. ID Effective Group Num 1. [employer] MEDICAR* MICKI ALMAGUER 1965 Female Self [id number] 01/16/22 [id number] [id number] 2. [facility] MEDICAID * MICKI ALMAGUER 1965 Female Self [id number] 06/18/19 OHMMEP [address] Brooke Carbajal [facility] 10-21-2023 Note HNO ID: [id number] Author: Leopoldo Chairez MD Service: ? Author Type: Physician Type: Progress Notes Filed: 10/21/2023 2:49 PM Note Text: Attending Note Micki was scheduled to see me again in error. I did reinforce that she should schedule her EGD, and she plans to do this in [place]. Also, I gave her our weekly navigator meeting information, so she can get her questions answered about insurance requirements. Signature: Leopoldo Chairez MD Date: 10/21/2023 Time: 2:46 PM [facility] 10-21-2023 History of Presen t illness Narrative Attending Note Micki was scheduled to see me again in error. I did reinforce that she should schedule her EGD, and she plans to do this in [place]. Also, I gave her our weekly navigator meeting information, so she can get her questions answered about insurance requirements. Signature: Leopoldo Chairez MD Date: 10/21/2023 Time: 2:46 PM documented in this encounter [facility] 10-21-2023 Miscellaneous Notes Morning Laura Spoke with patient and rescheduled her appt with Vickie documented in this encounter [facility] 10-18-2023 Miscellaneous Notes Opened in Error documented in this encounter [facility] 10-16-2023 Note HNO ID: [id number] Author: Lolita Swanson MD Service: ? Author Type: Physician Type: Progress Notes Filed: 10/31/2023 9:59 AM Note Text: I have communicated my name and active licensure. The patient's identity and physical location were verified at the time of this visit. Either the patient or their legal provider service representative has been informed of the risks and benefits of -- and alternatives to -- treatment through a remote evaluation and consents to proceed with the evaluation remotely. CC/HPI: 57 year old lady presents for follow up evaluation for medical weight loss. General Health Updates: Patient specifies the following items as new or significant updates in general health since last appointment here: -intervention Metformin-doing well, no side effects, finds it helpful in terms of controlling her appetite. Diet: -B: [employer] breakfast shake -L: spaghetti -D: country fried steak TV dinner -snacks: likes fruits -beverages-drinking water, Physical activity: the same-doing more now than a few months ago-doing more getting up/cleaning/taking care of kids; suggested pool/water exercise and chair exercises as well OTHER: -10/14/23 OV bMI/[facility] -10/11/23 missed BMI/Nutrition visit -09/30/23 OV BMI/[place] MEDS: See [facility] PMH: -weight management-Metformin --insomnia? Amitriptyline -osteoporosis-Fosamax -asthma-prn Albuterol -Xtempa prn PAST MEDICAL HISTORY Diagnosis Date Abdominal pain, left lower quadrant Depressive disorder, not elsewhere classified Diarrhea Diverticulitis of colon (without mention of hemorrhage)(562.11) GERD (gastroesophageal reflux disease) Hernia of unspecified site of abdominal cavity without mention of obstruction or gangrene Irritable bowel syndrome Nausea alone Chronic intermittent, since 2005, no known dx, responds to phenergan PMH - PAST MEDICAL HISTORY OF COLITIS PMH - PAST MEDICAL HISTORY OF YEMI Prediabetes Tobacco use disorder albuterol HFA (VENTOLIN HFA) 90 mcg/actuation inhaler Inhale 2 Puffs as instructed every 4 hours as needed for wheezing/shortness of breath. metFORMIN ER (GLUCOPHAGE XR) 500 mg 24 hr tablet Take 1 tablet by mouth daily with dinner. acyclovir (ZOVIRAX) 800 mg tablet Take 1 tablet by mouth three times a day. Take at first signs of outbreak. dicyclomine (BENTYL) 10 mg capsule Take 1 capsule by mouth before meals and at bedtime. Amitriptyline HCl 150 mg tablet Take 2 tablets by mouth daily at bedtime. XTAMPZA ER 13.5 mg CSpT TAKE 1 CAPSULE BY MOUTH TWICE DAILY FOR 28 DAYS alendronate (FOSAMAX) 70 mg tablet Take 1 tablet by mouth one time a week. Take with a full glass of water, on an empty stomach; do NOT lie down for 30minutes. (Patient not taking: Reported on 08/19/2023) ALLERGIES Allergen Reactions Trazodone Other: See Comments Opposite effect, kept her awake. Darvocet A500 [Prop* Vomiting Demoral [Meperidine] GI Upset Ibuprofen Swelling Iodine Swelling Midrin [Isometh-Dic* Vomiting Morphine abdominal cramps Naprosyn [Naproxen] Swelling Sulfa (Sulfonamide * Rash Toradol [Ketorolac * Mental Status Change Ultram [Tramadol Hc* Rash Zithromax [Azithrom* PHYSICAL EXAMINATION: Wt 131.5 kg (290 lb) LMP 02/27/2007 BMI 46.81 kg/m? General: alert and appropriate, in no distress, well-hydrated, well nourished, happy, smiling, interactive,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 to get down to 150 lbs from her current at 290 lbs. She has GERD, prediabetes, depression, IBS, and her prior surgeries include a lap leah and an open total abdominal hysterectomy (ovaries in place) via a low transverse incision. FUNCTIONAL STATUS: Climb a flight of stairs or walk up a hill (5.50 METs) Significant Anesthesia Considerations: None PAST MEDICAL HISTORY Diagnosis Date Abdominal pain, left lower quadrant Depressive disorder, not elsewhere classified Diarrhea Diverticulitis of colon (without mention of hemorrhage)(562.11) GERD (gastroesophageal reflux disease) Hernia of unspecified site of abdominal cavity without mention of obstruction or gangrene Irritable bowel syndrome Nausea alone Chronic intermittent, since 2005, no known dx, responds to phenergan PMH - PAST MEDICAL HISTORY OF COLITIS PMH - PAST MEDICAL HISTORY OF YEMI Prediabetes Tobacco use disorder PAST SURGICAL HISTORY Procedure Laterality Date CARPAL TUNNEL RIGHT WRIST dea CHOLECYSTECTOMY laparoscopic COLONOSCOPY W/BIOPSY SINGLE/MULTIPLE 12/24/2006 LIG/TRNSXJ FLP TUBE ABDL/VAG APPR UNI/BI TONSILLECTOMY PRIMARY/SECONDARY AGE 10/> TOTAL ABDOMINAL HYSTERECT W/WO RMVL TUBE OVARY 07/22/2007 Hysterectomy, MARIANO/BTO; low transverse incision FAMILY HISTORY Adopted: Yes Problem Relation Age of Onset Colon Cancer Paternal Grandmother dx'd 80's other (Cancer lung: smoker) Mother Lung, brain Diabetes Father Diabetes Maternal Grandmother Social History Tobacco Use Smoking status: Former Packs/day: 0.50 Years: 30.00 Additional pack years: 0.00 Total pack years: 15.00 Types: Cigarettes Quit date: 07/21/2014 Years since quittin.1 Smokeless tobacco: Never Vaping Use Vaping Use: Never used Substance Use Topics Alcohol use: No Drug use: No Comment: none Current Outpatient Medications Medication Sig acyclovir (ZOVIRAX) 800 mg tablet Take 1 tablet by mouth three times a day. Take at first signs of outbreak. albuterol HFA (VENTOLIN HFA) 90 mcg/actuation inhaler Inhale 2 Puffs as instructed every 4 hours as needed for wheezing/shortness of breath. alendronate (FOSAMAX) 70 mg tablet Take 1 tablet by mouth one time a week. Take with a full glass of water, on an empty stomach; do NOT lie down for 30minutes. (Patient not taking: Reported on 08/19/2023) amitriptyline (ELAVIL) 25 mg tablet Wean 5 tabs daily x 1 week, then 4 tabs daily x 1 week , then 3 tabs daily x 1 week, them 2 tabs daily x 1 week, then 1 tabs daily x 1 week and off Amitriptyline HCl 150 mg tablet Take 2 tablets by mouth daily at bedtime. dicyclomine (BENTYL) 10 mg capsule Take 1 capsule by mouth before meals and at bedtime. Phentermine HCl 37.5 mg tablet Take 1 tablet by mouth once daily for 30 days. XTAMPZA ER 13.5 mg CSpT TAKE 1 CAPSULE BY MOUTH TWICE DAILY FOR 28 DAYS No current facility-administered medications for this visit. ALLERGIES Allergen Reactions Trazodone Other: See Comments Opposite effect, kept her awake. Darvocet A500 [Prop* Vomiting Demoral [Meperidine] GI Upset Ibuprofen Swelling Iodine Swelling Midrin [Isometh-Dic* Vomiting Morphine abdominal cramps Naprosyn [Naproxen] Swelling Sulfa (Sulfonamide * Rash Toradol [Ketorolac * Mental Status Change Ultram [Tramadol Hc* Rash Zithromax [Azithrom* REVIEW OF SYSTEMS: General: No weight loss, malaise or fevers. Neuro: No history of TIA's, stroke, PAPER TWISTER TENDER tumor, impaired sensorium, hemiplegia, paraplegia or quadriplegia. No neurological symptoms or problems. Respiratory: No history of current cough or dyspnea, or pneumonia in the past 6 weeks. No history of respiratory/pulmonary symptoms or problems. Cardiovascular: No history of HTN requiring medication, no history of angina, CHF, IN, cardiac surgery or stents. Denies rest pain, gangrene or revascularization/amputation for PVD. No history of cardiovascular symptoms or problems. GI: GERD : No history of UTI in past 6 weeks. No history of renal failure. Not currently on or requiring dialysis. No history of symptoms or problems. 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 Endocrine: No history of diabetes. Has not taken steroids within the past 30 days. No history of endocrinological symptoms or problems. Hematology: No history of bleeding or clotting disorder. No history of hematological symptoms or problems. Oncology: No history of CA metastasis, chemo within 30 days, or radiotherapy within 90 days. No history of oncological symptoms or problems. Psych: Anxiety, Depression Skin: Negative for lesions, rash, and itching. Objective PHYSICAL EXAM: Patient reported Ht 167.6 cm (5' 6 ) Wt 131.5 kg (290 lb) LMP 02/27/2007 BMI 46.81 kg/m General - Normal, healthy, cooperative, in no acute distress, obese Able to interact verbally by video conference Psych - ORIENTATION: normal to time place, person and situation Mood/Affect: AFFECT AND MOOD: Normal Head/Neuro - Normal size and shape Facial appearance normal Pulmonary - respiratory effort normal Cardiovascular - patient describes extremities normal, warm, no cyanosis,no clubbing, and no edema Abdominal - Obese, Visible protrusions or hernias: No Incisions/scars: Healed, Skin - abnormal lesions not visualized Motor - patient seen sitting with Normal appearing strength and coordination DATA: Diagnostic tests reviewed for today's visit: Most recent labs H/H /, creatinine 0.85, A1c 6.[address] ABD/PELV 2020 - L1 compression fracture, otherwise normal (Scanned docs) EKG 2020 Diagnosis: NORMAL SINUS RHYTHM INCOMPLETE RIGHT BUNDLE BRANCH BLOCK ANTERIOR T WAVE ABNORMALITY ABNORMAL ECG Assessment/Plan IMPRESSION: Patient Active Problem List Pulmonary embolus, left (HCC) Opioid dependence, uncomplicated (HCC) Adjustment insomnia Anxiety Prediabetes Hx pulmonary embolism: segmental ALBERT Closed fracture of lower end of left radius with routine healing Compression fracture of L1 lumbar vertebra, sequela Encounter for support and coordination of transition of care SOB (shortness of breath) Spinal stenosis Degeneration of intervertebral disc of lumbar region Encounter for monitoring chronic NSAID therapy Migraine without status migrainosus, not intractable Morbid obesity with BMI of 45.0-49.9, adult (HCC) Bilateral low back pain with sciatica PTSD (post-traumatic stress disorder) Depression Marital conflict Back pain Other vitamin B12 deficiency anemia Nausea alone Abdominal pain, left lower quadrant Diarrhea Restless leg syndrome Dysthymia Resolved Hospital Problems No resolved problems to display. Ms. Almaguer is a 57 year old female referred to me for preoperative evaluation. PLAN/RECOMMENDATIONS: - Patient is a good candidate for metabolic surgery based on NIH criteria - Continue through BMI program - Reviewed principles of energy metabolism, caloric intake and expenditure, and rationale for treatment program. Also reinforced need for reduced calorie, low fat diet and increased physical activity. - After explaining the risks and benefits of the sleeve gastrectomy, Juice-en-Y gastric bypass, duodenal switch, and the MOIRA-S, Micki Almaguer wants to pursue the Juice-en-Y gastric bypass. - EGD for GERD evaluation. - Information regarding probable and potential postoperative complications, dietary and medical postoperative limitations, and potential cosmetic sequelae has been received by individual. Medical Decision Making: Problems: Moderate: 2+ stable chronic illnesses Data: Unique test result(s) reviewed: 3+ Unique test(s) ordered: 1 Independent interpretation of test from other physician/QHCP Risk: High: Decision on elective major surgery w/ risk factors Medical Decision Making Level: 5 - High SIGNATURE: Leopoldo Chairez MD PATIENT NAME: Micki Almaguer DATE: August 30, 2023 TIME: 4:17 PM PAGER/CONTACT #: documented in this encounter [facility] 08-26-2023 Miscellaneous Notes Phoned patient and given provider's message below with verbalized understanding. Orlistat (Xenical, Ramon) is an over the counter non-prescription, blocks uptake of fat which can cause diarrhea. There are no other options to my knowledge. Thanks, Tj Nash PA-C TC to patient who states she spoke with insurance and they told her they would not cover either medication. They also did not give her an alternative as they said it is not a medication she has to have . Patient states she has tried the Adipex and can't tolerate it. Experiencing jittery and weird feeling. Asked patient to explain weird and she stated I don't know, just weird . Patient asking if there are any medications similar to the Adipex that she could try without the side effects. Please advise. Thank you. VINNIE Elmore Left vm for patient to return call to nurse for provider message. She needs to call the insurance and ask what they cover first as I asked. The medication has to be titrated and will have 4 different dosages. Thanks, Tj Nash PA-C Patient calls and states at appointment it wsa discussed about patient being started on semaglutide or Tirzepatide. Patient was supposed to check with insurance about each medication. Patient states that she needs to know the dosage that provider wants to start her on to be able to check with insurance regarding cost. Agatha Ford RN documented in this encounter [facility] 08-23-2023 Miscellaneous Notes Patient was made aware of provider message and she will comply. Rut Edwards Ma Please reassure her that dropping the 300mg dose by 25mg is not causing this phenomenon. She can continue 300mg dose until she is over the phenteramine hyperactivity feeling and then try again. This is in her best interest . She wants to lose weight and this will help. If she is determined to stay on the dose, I will consult psychiatry to manage. Thanks, Tj Nash PA-C Patient calls and states that she cannot go off of amitriptyline. Patient states that she has been on this for years. Patient states that going off medication is causing her great anxiety. Patient states that if she goes off the medication then she will not be able to sleep. Patient states that she is already going through withdrawal. When asked what she means by this, patient states that she has not been able to sleep. Patient aware that provider is out of office today. Agatha Ford RN documented in this encounter [facility] 08-22-2023 Note HNO ID: [id number] Author: Kenya Nash PA-C Service: ? Author Type: Physician Blood Bank Assistant Type: Progress Notes Filed: 08/22/2023 8:56 PM Note Text: 57 year old female with c/o feels she had a reaction to phentermine, constantly hyper since started. Unab;le to sleep Elavil not helping. Handed me her bottle of pills and asked me to get rid of them returned to patient and she will dispose at police station. Has outbreak of shingles with recurrent rash on sacrum. Painful, itchy, burning HISTORIES FAMILY HISTORY Adopted: Yes Problem Relation Age of Onset Colon Cancer Paternal Grandmother dx'd 80's other (Cancer lung: smoker) Mother Lung, brain Diabetes Father Diabetes Maternal Grandmother PAST MEDICAL HISTORY Diagnosis Date Abdominal pain, left lower quadrant Depressive disorder, not elsewhere classified Diarrhea Diverticulitis of colon (without mention of hemorrhage)(562.11) Hernia of unspecified site of abdominal cavity without mention of obstruction or gangrene Irritable bowel syndrome Nausea alone Chronic intermittent, since 2005, no known dx, responds to phenergan PMH - PAST MEDICAL HISTORY OF COLITIS PMH - PAST MEDICAL HISTORY OF YEMI Tobacco use disorder PAST SURGICAL HISTORY Procedure Laterality Date CARPAL TUNNEL RIGHT WRIST dea CHOLECYSTECTOMY COLONOSCOPY W/BIOPSY SINGLE/MULTIPLE 12/24/06 LIG/TRNSXJ FLP TUBE ABDL/VAG APPR UNI/BI TONSILLECTOMY PRIMARY/SECONDARY AGE 10/> TOTAL ABDOMINAL HYSTERECT W/WO RMVL TUBE OVARY 07/22/2007 Hysterectomy, MARIANO/BTO Social History Tobacco Use Smoking status: Former Packs/day: 0.50 Years: 30.00 Additional pack years: 0.00 Total pack years: 15.00 Types: Cigarettes Quit date: 07/21/2014 Years since quittin.0 Smokeless tobacco: Never Vaping Use Vaping Use: Never used Substance Use Topics Alcohol use: No Drug use: No Comment: none ACTIVE PROBLEM LIST Dysthymia Restless Leg Syndrome Abdominal Pain, Left Lower Quadrant Diarrhea Nausea Alone Other Vitamin B12 Deficiency Anemia Back Pain Depression Marital Conflict Ptsd (Post-Traumatic Stress Disorder) Bilateral Low Back Pain With Sciatica Morbid Obesity With Bmi of 45.0-49.9, Adult ([facility]) Encounter for Monitoring Chronic Nsaid Therapy Spinal Stenosis Migraine Without Status Migrainosus, Not Intractable Degeneration of Intervertebral Disc of Lumbar Region Sob (Shortness of Breath) Encounter for Support and Coordination of Transition of Care Compression Fracture of L1 Lumbar Vertebra, Sequela Hx pulmonary embolism: segmental ALBERT Closed Fracture of Lower End of Left Radius With Routine Healing Adjustment Insomnia Anxiety Prediabetes Pulmonary Embolus, Left ([facility]) Opioid Dependence, Uncomplicated ([facility]) Current Outpatient Medications Medication Sig Dispense Refill amitriptyline (ELAVIL) 25 mg tablet Wean 5 tabs daily x 1 week, then 4 tabs daily x 1 week , then 3 tabs daily x 1 week, them 2 tabs daily x 1 week, then 1 tabs daily x 1 week and off 105 tablet 0 Phentermine HCl 37.5 mg tablet Take 1 tablet by mouth once daily for 30 days. 30 tablet 0 dicyclomine (BENTYL) 10 mg capsule Take 1 capsule by mouth before meals and at bedtime. 60 capsule 2 Amitriptyline HCl 150 mg tablet Take 2 tablets by mouth daily at bedtime. 180 tablet 1 XTAMPZA ER 13.5 mg CSpT TAKE 1 CAPSULE BY MOUTH TWICE DAILY FOR 28 DAYS alendronate (FOSAMAX) 70 mg tablet Take 1 tablet by mouth one time a week. Take with a full glass of water, on an empty stomach; do NOT lie down for 30minutes. (Patient not taking: Reported on 08/19/2023) 12 tablet 3 albuterol HFA (VENTOLIN HFA) 90 mcg/actuation inhaler Inhale 2 Puffs as instructed every 4 hours as needed for wheezing/shortness of breath. 1 Each 0 No current facility-administered medications for this visit. Hepatitis C Screening Never done HIV Screening Never done Colorectal Cancer Screening due on 07/02/2015 Mammogram Screening due on 01/31/2018 Pap Testing due on 07/02/2019 HPV Testing due on 07/02/2019 DTaP,Tdap,Td Vaccine(2 - Td or Tdap) due on 10/18/2021 Shingrix Vaccine(2 of 2) due on 11/15/2022 EXAM: BP 122/78 Pulse 103 Resp 16 LMP 02/27/2007 SpO2 93% Pleasant obese adult woman in no acute distress though seems wound up even more than usual. Alert and oriented all spheres. Normal affect and cognition. Speech normal. No deficits to learning or comprehension. Skin warm, dry, pink to lips and nailbeds. Normal turgor. Outbreak herpetic vesicalse over sacrum. Respirations regular and unlabored. Chest is normal shape. Lungs are clear to all mitchell with good air exchange through out. HRRR without murmur or gallop. No lifts, heaves, or rubs. Extrem: no clubbing or cyanosis. Edema: none. Extremities are warm and pink with prompt capillary refill. Herpetic vesicles over sacrum with erythema. ASSESSMENT/PLAN: 1. Herpes simplex - ICD9: 054.9, ICD10: (more content not included)... [facility] 08-22-2023 Instructions Kenya Nash PA-C - 08/22/2023 10:41 AM EDT Options for weight loss: semaglutide, terzepatide injections: call number on insurance card and ask if these are covered for morbid obesity or prediabetes. documented in this encounter [facility] 08-22-2023 History of Presen t illness Narrative 57 year old female with c/o feels she had a reaction to phentermine, constantly hyper since started. Unab;le to sleep Elavil not helping. Handed me her bottle of pills and asked me to get rid of them returned to patient and she will dispose at police station. Has outbreak of shingles with recurrent rash on sacrum. Painful, itchy, burning HISTORIES FAMILY HISTORY Adopted: Yes Problem Relation Age of Onset Colon Cancer Paternal Grandmother dx'd 80's other (Cancer lung: smoker) Mother Lung, brain Diabetes Father Diabetes Maternal Grandmother PAST MEDICAL HISTORY Diagnosis Date Abdominal pain, left lower quadrant Depressive disorder, not elsewhere classified Diarrhea Diverticulitis of colon (without mention of hemorrhage)(562.11) Hernia of unspecified site of abdominal cavity without mention of obstruction or gangrene Irritable bowel syndrome Nausea alone Chronic intermittent, since 2005, no known dx, responds to phenergan PMH - PAST MEDICAL HISTORY OF COLITIS PMH - PAST MEDICAL HISTORY OF YEMI Tobacco use disorder PAST SURGICAL HISTORY Procedure Laterality Date CARPAL TUNNEL RIGHT WRIST dea CHOLECYSTECTOMY COLONOSCOPY W/BIOPSY SINGLE/MULTIPLE 12/24/06 LIG/TRNSXJ FLP TUBE ABDL/VAG APPR UNI/BI TONSILLECTOMY PRIMARY/SECONDARY AGE 10/> TOTAL ABDOMINAL HYSTERECT W/WO RMVL TUBE OVARY 07/22/2007 Hysterectomy, MARIANO/BTO Social History Tobacco Use Smoking status: Former Packs/day: 0.50 Years: 30.00 Additional pack years: 0.00 Total pack years: 15.00 Types: Cigarettes Quit date: 07/21/2014 Years since quittin.0 Smokeless tobacco: Never Vaping Use Vaping Use: Never used Substance Use Topics Alcohol use: No Drug use: No Comment: none ACTIVE PROBLEM LIST Dysthymia Restless Leg Syndrome Abdominal Pain, Left Lower Quadrant Diarrhea Nausea Alone Other Vitamin B12 Deficiency Anemia Back Pain Depression Marital Conflict Ptsd (Post-Traumatic Stress Disorder) Bilateral Low Back Pain With Sciatica Morbid Obesity With Bmi of 45.0-49.9, Adult ([facility]) Encounter for Monitoring Chronic Nsaid Therapy Spinal Stenosis Migraine Without Status Migrainosus, Not Intractable Degeneration of Intervertebral Disc of Lumbar Region Sob (Shortness of Breath) Encounter for Support and Coordination of Transition of Care Compression Fracture of L1 Lumbar Vertebra, Sequela Hx pulmonary embolism: segmental ALBERT Closed Fracture of Lower End of Left Radius With Routine Healing Adjustment Insomnia Anxiety Prediabetes Pulmonary Embolus, Left ([facility]) Opioid Dependence, Uncomplicated ([facility]) Current Outpatient Medications Medication Sig Dispense Refill amitriptyline (ELAVIL) 25 mg tablet Wean 5 tabs daily x 1 week, then 4 tabs daily x 1 week , then 3 tabs daily x 1 week, them 2 tabs daily x 1 week, then 1 tabs daily x 1 week and off 105 tablet 0 Phentermine HCl 37.5 mg tablet Take 1 tablet by mouth once daily for 30 days. 30 tablet 0 dicyclomine (BENTYL) 10 mg capsule Take 1 capsule by mouth before meals and at bedtime. 60 capsule 2 Amitriptyline HCl 150 mg tablet Take 2 tablets by mouth daily at bedtime. 180 tablet 1 XTAMPZA ER 13.5 mg CSpT TAKE 1 CAPSULE BY MOUTH TWICE DAILY FOR 28 DAYS alendronate (FOSAMAX) 70 mg tablet Take 1 tablet by mouth one time a week. Take with a full glass of water, on an empty stomach; do NOT lie down for 30minutes. (Patient not taking: Reported on 08/19/2023) 12 tablet 3 albuterol HFA (VENTOLIN HFA) 90 mcg/actuation inhaler Inhale 2 Puffs as instructed every 4 hours as needed for wheezing/shortness of breath. 1 Each 0 No current facility-administered medications for this visit. Hepatitis C Screening Never done HIV Screening Never done Colorectal Cancer Screening due on 07/02/2015 Mammogram Screening due on 01/31/2018 Pap Testing due on 07/02/2019 HPV Testing due on 07/02/2019 DTaP,Tdap,Td Vaccine(2 - Td or Tdap) due on 10/18/2021 Shingrix Vaccine(2 of 2) due on 11/15/2022 EXAM: BP 122/78 Pulse 103 Resp 16 LMP 02/27/2007 SpO2 93% Pleasant obese adult woman in no acute distress though seems wound up even more than usual. Alert and oriented all spheres. Normal affect and cognition. Speech normal. No deficits to learning or comprehension. Skin warm, dry, pink to lips and nailbeds. Normal turgor. Outbreak herpetic vesicalse over sacrum. Respirations regular and unlabored. Chest is normal shape. Lungs are clear to all mitchell with good air exchange through out. HRRR without murmur or gallop. No lifts, heaves, or rubs. Extrem: no clubbing or cyanosis. Edema: none. Extremities are warm and pink with prompt capillary refill. Herpetic vesicles over sacrum with erythema. ASSESSMENT/PLAN: 1. Herpes simplex - ICD9: 054.9, ICD10: B00.9 (primary diagnosis) Educated on herpes simplex vs herpes zoster: pattern consistent former. Advised on communicability including self contamination - ACYCLOVIR 800 MG TABLET 2. Morbid obesity with BMI of 45.0-49.9, adult ([facility]) - ICD9: 278.01, V85.42, ICD10: E66.01, Z68.42 Weight increasing Call insurance to find what options for weight loss. JENIFER Madrid PA-C documented in this encounter [facility] 08-19-2023 Note HNO ID: [id number] Author: Kenya Nash PA-C Service: ? Author Type: Physician Blood Bank Assistant Type: Progress Notes Filed: 08/21/2023 9:55 AM Note Text: 57 year old female with c/o here for follow-up on lab work and to review additional medications for weight loss. Unfortunately visual not likely qualify for incretin injections, patient does not want to even try. States she has lost weight with phentermine in the past, only will cost her $12 a month and she is emphatic that she wants to start on this medication today. I explained to her that if she is interested in bariatric surgery she is going to have to demonstrate that she is capable of weight loss over 3 months without the use of medication which is necessary to ensure that the surgery is worth performing as she would have to continue diet modifications to sustain weight loss. Adjustment insomnia (primary encounter diagnosis) Anxiety Ptsd (post-traumatic stress disorder) Dysthymia Current medications: Amitryptiline 150mg 2 tablets daily Patient is sleeping, feels better off other antidepressants. Very hesitant and confused about how we would lower her dosing. Continually makes comments about taking her completely off the medicine and she will be able to sleep. Patient notes that when she ran out of the medicine she did not sleep for a few weeks and had terrible anxiety. I explained to her that this is going to happen if she suddenly stops the medication and that she would need to be weaned. Prediabetes Hemoglobin A1C Date Value 08/13/2023 6.2 % 06/29/2021 6.1 % 04/14/2020 6.1 09/16/2019 6.1 % ) Morbid obesity with bmi of 45.0-49.9, adult ([facility]) Vitals 07/15/2021 07/20/2021 11/20/2021 08/06/2023 08/19/2023 WEIGHT in POUNDS 262 lb 280 lb 274 lb 290 lb 291 lb WEIGHT in KILOGRAMS 118.842 kg 127.007 kg 124.286 kg 131.543 kg 131.997 kg HISTORIES FAMILY HISTORY Adopted: Yes Problem Relation Age of Onset Colon Cancer Paternal Grandmother dx'd 80's other (Cancer lung: smoker) Mother Lung, brain Diabetes Father Diabetes Maternal Grandmother PAST MEDICAL HISTORY Diagnosis Date Abdominal pain, left lower quadrant Depressive disorder, not elsewhere classified Diarrhea Diverticulitis of colon (without mention of hemorrhage)(562.11) Hernia of unspecified site of abdominal cavity without mention of obstruction or gangrene Irritable bowel syndrome Nausea alone Chronic intermittent, since 2005, no known dx, responds to phenergan PMH - PAST MEDICAL HISTORY OF COLITIS PMH - PAST MEDICAL HISTORY OF YEMI Tobacco use disorder PAST SURGICAL HISTORY Procedure Laterality Date CARPAL TUNNEL RIGHT WRIST dea CHOLECYSTECTOMY COLONOSCOPY W/BIOPSY SINGLE/MULTIPLE 12/24/06 LIG/TRNSXJ FLP TUBE ABDL/VAG APPR UNI/BI TONSILLECTOMY PRIMARY/SECONDARY AGE 10/> TOTAL ABDOMINAL HYSTERECT W/WO RMVL TUBE OVARY 07/22/2007 Hysterectomy, MARIANO/BTO Social History Tobacco Use Smoking status: Former Packs/day: 0.50 Years: 30.00 Additional pack years: 0.00 Total pack years: 15.00 Types: Cigarettes Quit date: 07/21/2014 Years since quittin.0 Smokeless tobacco: Never Vaping Use Vaping Use: Never used Substance Use Topics Alcohol use: No Drug use: No Comment: none ACTIVE PROBLEM LIST Dysthymia Restless Leg Syndrome Abdominal Pain, Left Lower Quadrant Diarrhea Nausea Alone Other Vitamin B12 Deficiency Anemia Back Pain Depression Marital Conflict Ptsd (Post-Traumatic Stress Disorder) Bilateral Low Back Pain With Sciatica Morbid Obesity With Bmi of 45.0-49.9, Adult ([facility]) Encounter for Monitoring Chronic Nsaid Therapy Spinal Stenosis Migraine Without Status Migrainosus, Not Intractable Degeneration of Intervertebral Disc of Lumbar Region Sob (Shortness of Breath) Encounter for Support and Coordination of Transition of Care Compression Fracture of L1 Lumbar Vertebra, Sequela Hx pulmonary embolism: segmental ALBERT Closed Fracture of Lower End of Left Radius With Routine Healing Current Outpatient Medications Medication Sig Dispense Refill dicyclomine (BENTYL) 10 mg capsule Take 1 capsule by mouth before meals and at bedtime. 60 capsule 2 Amitriptyline HCl 150 mg tablet Take 2 tablets by mouth daily at bedtime. 180 tablet 1 XTAMPZA ER 13.5 mg CSpT TAKE 1 CAPSULE BY MOUTH TWICE DAILY FOR 28 DAYS alendronate (FOSAMAX) 70 mg tablet Take 1 tablet by mouth one time a week. Take with a full glass of water, on an empty stomach; do NOT lie down for 30minutes. (Patient not taking: Reported on 07/25/2022) 12 tablet 3 albuterol HFA (VENTOLIN HFA) 90 mcg/actuation inhaler Inhale 2 Puffs as instructed every 4 hours as needed for wheezing/shortness of breath. 1 Each 0 No current facility-administered medications for this visit. Hepatitis C Screening Never done HIV Screening Never done Colorectal Cancer Screening due on 07/02/2015 Mammogram Screening due on 01/31/2018 Pap (more content not included)... [facility] 08-14-2023 Miscellaneous Notes Pt is also asking for lab results? Suzie Case LPN Pt calling and requesting the followin)handicap sticker, advise pt 2)letter to have a small dog in her apt, advise pt 3)requesting refill on Bentyl 10 mg. Pt has been taking and almost out of them. Patient has been identified by name and date of : Yes, Provider VINNY Hernandez Date 08/13/23 Time 10:34 am Patient phones for refill(s): Requested Prescriptions Pending Prescriptions Disp Refills dicyclomine (BENTYL) 10 mg capsule 60 capsule 2 Sig: Take 1 capsule by mouth before meals and at bedtime. Date of last office visit in primary care: next apt 09/03/23 Last 2 Encounter Wt Readings: Date: Wt: 08/06/2023 131.5 kg (290 lb) 11/20/2021 124.3 kg (274 lb) Previous labs/tests for medication: Not applicable Please advise. Thank you. Darlene Marinelli LPN documented in this encounter [facility] 08-13-2023 Miscellaneous Notes Order released and Client services called to add on. Rut Edwards Ma Patient states she came to [facility] today and got labs completed as ordered by Tj Nash, however HGBA1C was not drawn. Pt has order but it was not drawn. Pt asking if provider can contact Lab and request A1C be added on from samples received today? Of note, pt's next appt with Tj is 09/03. Please call patient with update. [phone] documented in this encounter [facility] 08-06-2023 Note HNO ID: [id number] Author: Kenya Nash PA-C Service: ? Author Type: Physician Blood Bank Assistant Type: Progress Notes Filed: 08/07/2023 1:46 PM Note Text: 57 year old female with c/o here for follow up Was going to [facility]. Adjustment insomnia (primary encounter diagnosis) Anxiety Depression, unspecified depression type Ptsd (post-traumatic stress disorder) Chronic insomnia Took herself off antidepressants. Down to amitriptyline 300mg at bedtime Prediabetes No recent labs, not done at [facility] Age-related osteoporosis with current pathological fracture, vertebra(e), initial encounter for fracture ([facility]) States no diagnosis of osteoporosis and never took Fosamax. No BMD on chart Displaced physeal fracture of distal end of right radius with routine healing, subsequent encounter Seeing Dr. Ramsey for pain management Xtampza (percocet) ER 13.5mg #56/month Morbid obesity with bmi of 45.0-49.9, adult ([facility]) Patient wants weight loss medications States by Idris[facility] been referred her to bariatric surgical clinic but she never heard back from them even though she called the office for appointment. Patient is interested in what ever will help to get her weight off. Pressed me hard to start her on Adipex because it is worked for her in the past. Restless leg syndrome Resolved with pain medication HISTORIES FAMILY HISTORY Adopted: Yes Problem Relation Age of Onset Colon Cancer Paternal Grandmother dx'd 80's other (Cancer lung: smoker) Mother Lung, brain Diabetes Father Diabetes Maternal Grandmother PAST MEDICAL HISTORY Diagnosis Date Abdominal pain, left lower quadrant Depressive disorder, not elsewhere classified Diarrhea Diverticulitis of colon (without mention of hemorrhage)(562.11) Hernia of unspecified site of abdominal cavity without mention of obstruction or gangrene Irritable bowel syndrome Nausea alone Chronic intermittent, since 2005, no known dx, responds to phenergan PMH - PAST MEDICAL HISTORY OF COLITIS PMH - PAST MEDICAL HISTORY OF YEMI Tobacco use disorder PAST SURGICAL HISTORY Procedure Laterality Date CARPAL TUNNEL RIGHT WRIST dea CHOLECYSTECTOMY COLONOSCOPY W/BIOPSY SINGLE/MULTIPLE 12/24/06 LIG/TRNSXJ FLP TUBE ABDL/VAG APPR UNI/BI TONSILLECTOMY PRIMARY/SECONDARY AGE 10/> TOTAL ABDOMINAL HYSTERECT W/WO RMVL TUBE OVARY 07/22/2007 Hysterectomy, MARIANO/BTO Social History Tobacco Use Smoking status: Former Packs/day: 0.50 Years: 30.00 Additional pack years: 0.00 Total pack years: 15.00 Types: Cigarettes Quit date: 07/21/2014 Years since quittin.0 Smokeless tobacco: Never Vaping Use Vaping Use: Never used Substance Use Topics Alcohol use: No Drug use: No Comment: none ACTIVE PROBLEM LIST Dysthymia Restless Leg Syndrome Abdominal Pain, Left Lower Quadrant Diarrhea Nausea Alone Other Vitamin B12 Deficiency Anemia Back Pain Depression Marital Conflict Ptsd (Post-Traumatic Stress Disorder) Bilateral Low Back Pain With Sciatica Morbid Obesity With Bmi of 45.0-49.9, Adult ([facility]) Encounter for Monitoring Chronic Nsaid Therapy Spinal Stenosis Migraine Without Status Migrainosus, Not Intractable Degeneration of Intervertebral Disc of Lumbar Region Sob (Shortness of Breath) Encounter for Support and Coordination of Transition of Care Compression Fracture of L1 Lumbar Vertebra, Sequela Hx pulmonary embolism: segmental ALBERT Closed Fracture of Lower End of Left Radius With Routine Healing Current Outpatient Medications Medication Sig Dispense Refill XTAMPZA ER 13.5 mg CSpT TAKE 1 CAPSULE BY MOUTH TWICE DAILY FOR 28 DAYS dicyclomine (BENTYL) 10 mg capsule Take 1 capsule by mouth before meals and at bedtime. 60 capsule 2 FLUoxetine HCl (PROZAC) 40 mg capsule Take 2 capsules by mouth once daily. 60 capsule 5 alendronate (FOSAMAX) 70 mg tablet Take 1 tablet by mouth one time a week. Take with a full glass of water, on an empty stomach; do NOT lie down for 30minutes. (Patient not taking: Reported on 07/25/2022) 12 tablet 3 albuterol HFA (VENTOLIN HFA) 90 mcg/actuation inhaler Inhale 2 Puffs as instructed every 4 hours as needed for wheezing/shortness of breath. (Patient not taking: Reported on 11/20/2021 ) 1 Each 0 No current facility-administered medications for this visit. Hepatitis C Screening Never done HIV Screening Never done Shingrix Vaccine(1 of 2) Never done Colorectal Cancer Screening due on 07/02/2015 Mammogram Screening due on 01/31/2018 Pap Testing due on 07/02/2019 HPV Testing due on 07/02/2019 DTaP,Tdap,Td Vaccine(2 - Td or Tdap) due on 10/18/2021 Covid-19 Vaccine(3 - Pfizer series) due on 10/25/2021 Influenza Vaccine(1) due on 07/19/2023 EXAM: BP 128/70 Pulse 96 Resp 18 Wt 131.5 kg (290 lb) LMP 02/27/2007 SpO2 92% BMI 47.52 kg/m? Vitals 07/15/2021 07/20/2021 11/20/2021 08/06/2023 WEIGHT in POUNDS 262 lb 280 lb 274 lb 29 (more content not included)... [facility] 05-22-2023 Note Patient Outreach (ADRIENNE TNAV) MICKI ALMAGUER ([id number]) 1965 F Date Time Provider Department 05/22/23 ESPERANZA HARMON During your visit today, we recorded the following information about you: Esperanza Harmon MA 05/22/2023 3:24 PM Signed POPULATION HEALTH NAVIGATION OUTREACH Action/FYI NO ANSWER MYCHART MESSAGE SENT ANNUAL MEDICARE WELLNSS COLORECTAL CANCER SCREENING due on 07/02/2015 MAMMOGRAM due on 01/31/2018 Patient Identified by Name and : NO Outreach Outcome/Action Unable to reach patient: Phone number not valid / voicemail full MyChart message sent Did you use a PCP flex slot to schedule this appointment? N/A Reason for Outreach Care Gap or Scheduling/Wellness visits Payer: Payor: AET MEDICARE / Plan: AETNA MEDICARE ASSURE HMO D SNP / Product Type: Medicare / Care Gap Reviewed:: Annual Wellness visit Breast Cancer screening Colorectal Cancer Screening Reminder: Reminder note to check Health Maintenance for items below Health Maintenance items due: HEPATITIS C SCREENING Never done HIV SCREENING Never done SHINGRIX VACCINE(1 of 2) Never done COLORECTAL CANCER SCREENING due on 07/02/2015 MAMMOGRAM due on 01/31/2018 PAP TESTING due on 07/02/2019 HPV TESTING due on 07/02/2019 DTAP,TDAP,TD(2 - Td or Tdap) due on 10/18/2021 COVID-19 VACCINE(3 - Booster for Pfizer series) due on 10/25/2021 Navigation Signature: Esperanza Harmon MA May 22, 2023 9:25 AM Allergies As of Date: 05/22/2023 Noted Allergy Reaction TRAZODONE 04/10/2018 14 - Other: See Comments Comments: Opposite effect, kept her awake. DARVOCET A500 (PROPOXYPHENE N-GINGER*12/19/2005 11 - Vomiting DEMORAL (MEPERIDINE) 03/24/2007 8 - GI Upset ELAVIL (AMITRIPTYLINE HCL) 05/08/2007 14 - Other: See Comments Comments: Pt denies allergy IBUPROFEN 12/19/2005 7 - Swelling IODINE 11/07/2006 7 - Swelling MIDRIN ([id number]*11/2005 11 - Vomiting MORPHINE 11/07/2006 Comments: abdominal cramps NAPROSYN (NAPROXEN) 12/19/2005 7 - Swelling SULFA (SULFONAMIDE ANTIBIOTICS) 11/07/2006 2 - Rash TORADOL (KETOROLAC TROMETHAMINE) 12/19/2005 1 - Mental Status Change ULTRAM (TRAMADOL HCL) 12/19/2005 2 - Rash ZITHROMAX (AZITHROMYCIN) 05/08/2007 Date Reviewed: 07/25/2022 Reviewed by: Jordyn Solorio Ma - Fully Assessed Reason for Visit: Population Health Navigation Outreach [3910] Cmt: SHAWNA VAUGHNLUANA PCSA Prescriptions as of 05/22/2023 - XTAMPZA ER 13.5 mg CSpT TAKE 1 CAPSULE BY MOUTH TWICE DAILY FOR 28 DAYS - dicyclomine (BENTYL) 10 mg capsule Take 1 capsule by mouth before meals and at bedtime. - FLUoxetine HCl (PROZAC) 40 mg capsule Take 2 capsules by mouth once daily. - alendronate (FOSAMAX) 70 mg tablet Take 1 tablet by mouth one time a week. Take with a full glass of water, on an empty stomach; do NOT lie down for 30minutes. - albuterol HFA (VENTOLIN HFA) 90 mcg/actuation inhaler Inhale 2 Puffs as instructed every 4 hours as needed for wheezing/shortness of breath. Problem List As Of Date 05/22/2023 Noted Resolved Dysthymia [F34.1] Restless leg syndrome [G25.81] 12/20/2005 Tobacco use disorder [F17.200] 12/20/2005 08/12/2018 ABDOMINAL PAIN LLQ [R10.32] 12/24/2006 DIARRHEA NOS [R19.7] 12/24/2006 NAUSEA ALONE [R11.0] B12 DEFIC ANEMIA NEC [D51.8] 07/14/2007 Back pain [M54.9] 10/15/2011 Depression [F32.A] 02/01/2012 Marital conflict [Z63.0] 02/01/2012 PTSD (post-traumatic stress disorder) [F43.10] 08/27/2014 Bilateral low back pain with sciatica [M54.40] 08/30/2015 Morbid obesity with BMI of 45.0-49.9, adult ([facility]*02/19/2018 Encounter for monitoring chronic NSAID therapy *05/26/2020 Spinal stenosis [M48.00] 12/26/2020 Migraine without status migrainosus, not intrac*10/03/2018 Degeneration of intervertebral disc of lumbar r*12/26/2020 SOB (shortness of breath) [R06.02] 07/18/2021 Encounter for support and coordination of trans*10/12/2021 Compression fracture of L1 lumbar vertebra, seq*04/04/2023 Hx pulmonary embolism: segmental ALBERT [Z86.711] 04/09/2023 Closed fracture of lower end of left radius wit*04/09/2023 Encounter Status:Closed by ESPERANZA HARMON on 05/22/23 [facility] 05-22-2023 Note HNO ID: [id number] Author: Esperanza Harmon MA Service: ? Author Type: Lease Examiner Type: Progress Notes Filed: 05/22/2023 3:24 PM Note Text: POPULATION HEALTH NAVIGATION OUTREACH Action/FYI NO ANSWER [employer] MESSAGE SENT ANNUAL MEDICARE WELLNSS COLORECTAL CANCER SCREENING due on 07/02/2015 MAMMOGRAM due on 01/31/2018 Patient Identified by Name and : NO Outreach Outcome/Action Unable to reach patient: Phone number not valid / voicemail full Linkfluencet message sent Did you use a PCP flex slot to schedule this appointment? N/A Reason for Outreach Care Gap or Scheduling/Wellness visits Payer: Payor: [email or web address] MEDICARE / Plan: AETNA MEDICARE ASSURE HMO D SNP / Product Type: Medicare / Care Gap Reviewed:: Annual Wellness visit Breast Cancer screening Colorectal Cancer Screening Reminder: Reminder note to check Health Maintenance for items below Health Maintenance items due: HEPATITIS C SCREENING Never done HIV SCREENING Never done SHINGRIX VACCINE(1 of 2) Never done COLORECTAL CANCER SCREENING due on 07/02/2015 MAMMOGRAM due on 01/31/2018 PAP TESTING due on 07/02/2019 HPV TESTING due on 07/02/2019 DTAP,TDAP,TD(2 - Td or Tdap) due on 10/18/2021 COVID-19 VACCINE(3 - Booster for Pfizer series) due on 10/25/2021 Navigation Signature: Esperanza Harmon MA May 22, 2023 9:25 AM [facility] 05-22-2023 History of Presen t illness Narrative POPULATION HEALTH NAVIGATION OUTREACH Action/FYI NO ANSWER [employer] MESSAGE SENT ANNUAL MEDICARE WELLNSS COLORECTAL CANCER SCREENING due on 07/02/2015 MAMMOGRAM due on 01/31/2018 Patient Identified by Name and : NO Outreach Outcome/Action Unable to reach patient: Phone number not valid / voicemail full [employer]flu[employer] message sent Did you use a PCP flex slot to schedule this appointment? N/A Reason for Outreach Care Gap or Scheduling/Wellness visits Payer: Payor: TEDNE[employer] MEDICARE / Plan: AETNA MEDICARE ASSURE HMO D SNP / Product Type: Medicare / Care Gap Reviewed:: Annual Wellness visit Breast Cancer screening Colorectal Cancer Screening Reminder: Reminder note to check Health Maintenance for items below Health Maintenance items due: HEPATITIS C SCREENING Never done HIV SCREENING Never done SHINGRIX VACCINE(1 of 2) Never done COLORECTAL CANCER SCREENING due on 07/02/2015 MAMMOGRAM due on 01/31/2018 PAP TESTING due on 07/02/2019 HPV TESTING due on 07/02/2019 DTAP,TDAP,TD(2 - Td or Tdap) due on 10/18/2021 COVID-19 VACCINE(3 - Booster for Pfizer series) due on 10/25/2021 Navigation Signature: Esperanza Harmon MA May 22, 2023 9:25 AM documented in this encounter [facility] 05-08-2023 Note Patient Outreach (IN TMMN) MICKI ALMAGUER ([id number]) 1965 F Date Time Provider Department 05/08/23 Kenya NASH During your visit today, we recorded the following information about you: Allergies As of Date: 05/08/2023 Noted Allergy Reaction TRAZODONE 04/10/2018 14 - Other: See Comments Comments: Opposite effect, kept her awake. DARVOCET A500 (PROPOXYPHENE N-GINGER*12/19/2005 11 - Vomiting DEMORAL (MEPERIDINE) 03/24/2007 8 - GI Upset ELAVIL (AMITRIPTYLINE HCL) 05/08/2007 14 - Other: See Comments Comments: Pt denies allergy IBUPROFEN 12/19/2005 7 - Swelling IODINE 11/07/2006 7 - Swelling MIDRIN ([id number]*11/2005 11 - Vomiting MORPHINE 11/07/2006 Comments: abdominal cramps NAPROSYN (NAPROXEN) 12/19/2005 7 - Swelling SULFA (SULFONAMIDE ANTIBIOTICS) 11/07/2006 2 - Rash TORADOL (KETOROLAC TROMETHAMINE) 12/19/2005 1 - Mental Status Change ULTRAM (TRAMADOL HCL) 12/19/2005 2 - Rash ZITHROMAX (AZITHROMYCIN) 05/08/2007 Date Reviewed: 07/25/2022 Reviewed by: Jordyn Solorio Ma - Fully Assessed Visit Diagnosis:Encounter for screening mammogram for breast cancer [Z12.31] Order(s):[facility] SCREENING [[id number]] Order #: [id number] FUTURE Prescriptions as of 05/13/2023 - XTAMPZA ER 13.5 mg CSpT TAKE 1 CAPSULE BY MOUTH TWICE DAILY FOR 28 DAYS - dicyclomine (BENTYL) 10 mg capsule Take 1 capsule by mouth before meals and at bedtime. - FLUoxetine HCl (PROZAC) 40 mg capsule Take 2 capsules by mouth once daily. - alendronate (FOSAMAX) 70 mg tablet Take 1 tablet by mouth one time a week. Take with a full glass of water, on an empty stomach; do NOT lie down for 30minutes. - albuterol HFA (VENTOLIN HFA) 90 mcg/actuation inhaler Inhale 2 Puffs as instructed every 4 hours as needed for wheezing/shortness of breath. Problem List As Of Date 05/08/2023 Noted Resolved Dysthymia [F34.1] Restless leg syndrome [G25.81] 12/20/2005 Tobacco use disorder [F17.200] 12/20/2005 08/12/2018 ABDOMINAL PAIN LLQ [R10.32] 12/24/2006 DIARRHEA NOS [R19.7] 12/24/2006 NAUSEA ALONE [R11.0] B12 DEFIC ANEMIA NEC [D51.8] 07/14/2007 Back pain [M54.9] 10/15/2011 Depression [F32.A] 02/01/2012 Marital conflict [Z63.0] 02/01/2012 PTSD (post-traumatic stress disorder) [F43.10] 08/27/2014 Bilateral low back pain with sciatica [M54.40] 08/30/2015 Morbid obesity with BMI of 45.0-49.9, adult ([facility]*02/19/2018 Encounter for monitoring chronic NSAID therapy *05/26/2020 Spinal stenosis [M48.00] 12/26/2020 Migraine without status migrainosus, not intrac*10/03/2018 Degeneration of intervertebral disc of lumbar r*12/26/2020 SOB (shortness of breath) [R06.02] 07/18/2021 Encounter for support and coordination of trans*10/12/2021 Compression fracture of L1 lumbar vertebra, seq*04/04/2023 Hx pulmonary embolism: segmental ALBERT [Z86.711] 04/09/2023 Closed fracture of lower end of left radius wit*04/09/2023 Encounter Status:Closed by SHADI FREY on 05/13/23 [facility] 03-07-2023 Note Patient Outreach (NE CORNELIO) MICKI ALMAGUER ([id number]) 1965 F Date Time Provider Department 03/07/23 ESPERANZA HARMON During your visit today, we recorded the following information about you: Esperanza Harmon MA 03/07/2023 2:49 PM Signed POPULATION HEALTH NAVIGATION OUTREACH Action/FYI [employer] message sent ANNUAL MEDICARE WELLNESS COLORECTAL CANCER SCREENING due on 07/02/2015 MAMMOGRAM due on 01/31/2018 Patient Identified by Name and : NO Outreach Outcome/Action Unable to reach patient: Left message Genbook[employer] message sent Did you use a PCP flex slot to schedule this appointment? N/A Reason for Outreach Care Gap or Scheduling/Wellness visits Payer: Payor: [facility] MEDICARE / Plan: AETNA MEDICARE ASSURE HMO D SNP / Product Type: Medicare / Care Gap Reviewed:: Annual Wellness visit Breast Cancer screening Colorectal Cancer Screening Reminder: Reminder note to check Health Maintenance for items below Health Maintenance items due: HEPATITIS C SCREENING Never done HIV SCREENING Never done SHINGRIX VACCINE(1 of 2) Never done COLORECTAL CANCER SCREENING due on 07/02/2015 MAMMOGRAM due on 01/31/2018 PAP TESTING due on 07/02/2019 HPV TESTING due on 07/02/2019 DTAP,TDAP,TD(2 - Td or Tdap) due on 10/18/2021 COVID-19 VACCINE(3 - Booster for Pfizer series) due on 10/25/2021 Navigation Signature: Esperanza Harmon MA March 07, 2023 7:49 AM Allergies As of Date: 03/07/2023 Noted Allergy Reaction TRAZODONE 04/10/2018 14 - Other: See Comments Comments: Opposite effect, kept her awake. DARVOCET A500 (PROPOXYPHENE N-GINGER*12/19/2005 11 - Vomiting DEMORAL (MEPERIDINE) 03/24/2007 8 - GI Upset ELAVIL (AMITRIPTYLINE HCL) 05/08/2007 14 - Other: See Comments Comments: Pt denies allergy IBUPROFEN 12/19/2005 7 - Swelling IODINE 11/07/2006 7 - Swelling MIDRIN ([id number]*11/2005 11 - Vomiting MORPHINE 11/07/2006 Comments: abdominal cramps NAPROSYN (NAPROXEN) 12/19/2005 7 - Swelling SULFA (SULFONAMIDE ANTIBIOTICS) 11/07/2006 2 - Rash TORADOL (KETOROLAC TROMETHAMINE) 12/19/2005 1 - Mental Status Change ULTRAM (TRAMADOL HCL) 12/19/2005 2 - Rash ZITHROMAX (AZITHROMYCIN) 05/08/2007 Date Reviewed: 07/25/2022 Reviewed by: Jordyn Solorio Ma - Fully Assessed Reason for Visit: Population Health Navigation Outreach [6499] Cmt: ACO LUANA PCSA Prescriptions as of 03/07/2023 - XTAMPZA ER 13.5 mg CSpT TAKE 1 CAPSULE BY MOUTH TWICE DAILY FOR 28 DAYS - hydrOXYzine HCl (ATARAX) 10 mg tablet Take 1 tablet by mouth at bedtime as needed (sleep). - ramelteon (ROZEREM) 8 mg tablet Take 1 tablet by mouth daily at bedtime. - amitriptyline (ELAVIL) 50 mg tablet 3 tabs at bedtime daily x 1 week, then 2 tabs daily at bedtime x 1 week, then 1 tab daily at bedtime x 1 week and stop. - dicyclomine (BENTYL) 10 mg capsule Take 1 capsule by mouth before meals and at bedtime. - HYDROcodone-acetaminophen (NORCO) 5-325 mg per tablet - apixaban (ELIQUIS) 5 mg tab(s) Take 1 tablet by mouth twice daily. 2 tabs twice a day x 1 week the 1 tab twice a day - apixaban (ELIQUIS) 5 mg tab(s) Take 1 tablet by mouth twice daily. - FLUoxetine HCl (PROZAC) 40 mg capsule Take 2 capsules by mouth once daily. - calcitonin,salmon, (MIACALCIN, FORTICAL) 200 unit/actuation nasal spray Use 1 [place] in the nose once daily. Alternate nostrils x 6 weeks then stop - alendronate (FOSAMAX) 70 mg tablet Take 1 tablet by mouth one time a week. Take with a full glass of water, on an empty stomach; do NOT lie down for 30minutes. - albuterol HFA (VENTOLIN HFA) 90 mcg/actuation inhaler Inhale 2 Puffs as instructed every 4 hours as needed for wheezing/shortness of breath. - HYDROcodone bitartrate 10 mg CR12 Take 1 tablet by mouth twice daily. Problem List As Of Date 03/07/2023 Noted Resolved DEPRESSIVE DISORDER NEC [F32.89] RESTLESS LEG (SYNDROME) [G25.89] 12/20/2005 Tobacco use disorder [F17.200] 12/20/2005 08/12/2018 ABDOMINAL PAIN LLQ [R10.32] 12/24/2006 DIARRHEA NOS [R19.7] 12/24/2006 NAUSEA ALONE [R11.0] B12 DEFIC ANEMIA NEC [D51.8] 07/14/2007 Back pain [M54.9] 10/15/2011 Depression [F32.A] 02/01/2012 Marital conflict [Z63.0] 02/01/2012 PTSD (post-traumatic stress disorder) [F43.10] 08/27/2014 Bilateral low back pain with sciatica [M54.40] 08/30/2015 Morbid obesity with BMI of 45.0-49.9, adult (HC*02/19/2018 Encounter for monitoring chronic NSAID therapy *05/26/2020 Spinal stenosis [M48.00] 12/26/2020 Migraine without status migrainosus, not intrac*10/03/2018 Degeneration of intervertebral disc of lumbar r*12/26/2020 SOB (shortness of breath) [R06.02] 07/18/2021 Encounter for support and coordination of trans*10/12/2021 Encounter Status:Closed by ESPERANZA HARMON on 03/07/23 [facility] 03-07-2023 Note HNO ID: [id number] Author: Esperanza Harmon MA Service: ? Author Type: Lease Examiner Type: Progress Notes Filed: 03/07/2023 2:49 PM Note Text: POPULATION HEALTH NAVIGATION OUTREACH Action/I [facility] mychart message sent ANNUAL MEDICARE WELLNESS COLORECTAL CANCER SCREENING due on 07/02/2015 MAMMOGRAM due on 01/31/2018 Patient Identified by Name and : NO Outreach Outcome/Action Unable to reach patient: Left message Genbookhart message sent Did you use a PCP flex slot to schedule this appointment? N/A Reason for Outreach Care Gap or Scheduling/Wellness visits Payer: Payor: [facility] / [facility] D SNP / Product Type: Medicare / Care Gap Reviewed:: Annual Wellness visit Breast Cancer screening Colorectal Cancer Screening Reminder: Reminder note to check Health Maintenance for items below Health Maintenance items due: HEPATITIS C SCREENING Never done HIV SCREENING Never done SHINGRIX VACCINE(1 of 2) Never done COLORECTAL CANCER SCREENING due on 07/02/2015 MAMMOGRAM due on 01/31/2018 PAP TESTING due on 07/02/2019 HPV TESTING due on 07/02/2019 DTAP,TDAP,TD(2 - Td or Tdap) due on 10/18/2021 COVID-19 VACCINE(3 - Booster for Pfizer series) due on 10/25/2021 Navigation Signature: Esperanza Harmon MA March 07, 2023 7:49 AM [facility] 03-07-2023 History of Presen t illness Narrative POPULATION HEALTH NAVIGATION OUTREACH Action/FYI [facility] [employer] message sent ANNUAL MEDICARE WELLNESS COLORECTAL CANCER SCREENING due on 07/02/2015 MAMMOGRAM due on 01/31/2018 Patient Identified by Name and : NO Outreach Outcome/Action Unable to reach patient: Left message MyChart message sent Did you use a PCP flex slot to schedule this appointment? N/A Reason for Outreach Care Gap or Scheduling/Wellness visits Payer: Payor: AET MEDICARE / Plan: [employer] MEDICARE ASSURE HMO D SNP / Product Type: Medicare / Care Gap Reviewed:: Annual Wellness visit Breast Cancer screening Colorectal Cancer Screening Reminder: Reminder note to check Health Maintenance for items below Health Maintenance items due: HEPATITIS C SCREENING Never done HIV SCREENING Never done SHINGRIX VACCINE(1 of 2) Never done COLORECTAL CANCER SCREENING due on 07/02/2015 MAMMOGRAM due on 01/31/2018 PAP TESTING due on 07/02/2019 HPV TESTING due on 07/02/2019 DTAP,TDAP,TD(2 - Td or Tdap) due on 10/18/2021 COVID-19 VACCINE(3 - Booster for Pfizer series) due on 10/25/2021 Navigation Signature: Esperanza Harmon MA March 07, 2023 7:49 AM documented in this encounter [facility] 01-16-2023 Note Patient Outreach (ADRIENNE TNAV) MICKI ALMAGUER ([id number]) 1965 F Date Time Provider Department 01/16/23 ESPERANZA HARMON During your visit today, we recorded the following information about you: Esperanza Harmon MA 01/16/2023 3:04 PM Signed POPULATION HEALTH NAVIGATION OUTREACH Action/FYI [employer] ANNUAL MEDICARE WELLNESS COLORECTAL CANCER SCREENING due on 07/02/2015 MAMMOGRAM due on 01/31/2018 INFLUENZA(1) due on 07/19/2022 Patient Identified by Name and : NO Outreach Outcome/Action Unable to reach patient: Left message Did you use a PCP flex slot to schedule this appointment? N/A Reason for Outreach Care Gap or Scheduling/Wellness visits Payer: Payor: [employer] MEDICARE / Plan: [employer] MEDICARE ASSURE HMO D SNP / Product Type: Medicare / Care Gap Reviewed:: Annual Wellness visit Breast Cancer screening Colorectal Cancer Screening Flu Vaccine Reminder: Reminder note to check Health Maintenance for items below Health Maintenance items due: HEPATITIS C SCREENING Never done HIV SCREENING Never done SHINGRIX VACCINE(1 of 2) Never done COLORECTAL CANCER SCREENING due on 07/02/2015 MAMMOGRAM due on 01/31/2018 PAP TESTING due on 07/02/2019 HPV TESTING due on 07/02/2019 DTAP,TDAP,TD(2 - Td or Tdap) due on 10/18/2021 COVID-19 VACCINE(3 - Booster for Pfizer series) due on 10/25/2021 INFLUENZA(1) due on 07/19/2022 Navigation Signature: Esperanza Harmon MA January 16, 2023 10:39 AM Allergies As of Date: 01/16/2023 Noted Allergy Reaction TRAZODONE 04/10/2018 14 - Other: See Comments Comments: Opposite effect, kept her awake. DARVOCET A500 (PROPOXYPHENE N-GINGER*12/19/2005 11 - Vomiting DEMORAL (MEPERIDINE) 03/24/2007 8 - GI Upset ELAVIL (AMITRIPTYLINE HCL) 05/08/2007 14 - Other: See Comments Comments: Pt denies allergy IBUPROFEN 12/19/2005 7 - Swelling IODINE 11/07/2006 7 - Swelling MIDRIN ([id number]*11/2005 11 - Vomiting MORPHINE 11/07/2006 Comments: abdominal cramps NAPROSYN (NAPROXEN) 12/19/2005 7 - Swelling SULFA (SULFONAMIDE ANTIBIOTICS) 11/07/2006 2 - Rash TORADOL (KETOROLAC TROMETHAMINE) 12/19/2005 1 - Mental Status Change ULTRAM (TRAMADOL HCL) 12/19/2005 2 - Rash ZITHROMAX (AZITHROMYCIN) 05/08/2007 Date Reviewed: 07/25/2022 Reviewed by: Jordyn M Lyndsey Ma - Fully Assessed Reason for Visit: Population Health Navigation Outreach [3910] Cmt: ROSEANNThomas ULANA PCSA Prescriptions as of 01/16/2023 - XTAMPZA ER 13.5 mg CSpT TAKE 1 CAPSULE BY MOUTH TWICE DAILY FOR 28 DAYS - hydrOXYzine HCl (ATARAX) 10 mg tablet Take 1 tablet by mouth at bedtime as needed (sleep). - ramelteon (ROZEREM) 8 mg tablet Take 1 tablet by mouth daily at bedtime. - amitriptyline (ELAVIL) 50 mg tablet 3 tabs at bedtime daily x 1 week, then 2 tabs daily at bedtime x 1 week, then 1 tab daily at bedtime x 1 week and stop. - dicyclomine (BENTYL) 10 mg capsule Take 1 capsule by mouth before meals and at bedtime. - HYDROcodone-acetaminophen (NORCO) 5-325 mg per tablet - apixaban (ELIQUIS) 5 mg tab(s) Take 1 tablet by mouth twice daily. 2 tabs twice a day x 1 week the 1 tab twice a day - apixaban (ELIQUIS) 5 mg tab(s) Take 1 tablet by mouth twice daily. - FLUoxetine HCl (PROZAC) 40 mg capsule Take 2 capsules by mouth once daily. - calcitonin,salmon, (MIACALCIN, FORTICAL) 200 unit/actuation nasal spray Use 1 [place] in the nose once daily. Alternate nostrils x 6 weeks then stop - alendronate (FOSAMAX) 70 mg tablet Take 1 tablet by mouth one time a week. Take with a full glass of water, on an empty stomach; do NOT lie down for 30minutes. - albuterol HFA (VENTOLIN HFA) 90 mcg/actuation inhaler Inhale 2 Puffs as instructed every 4 hours as needed for wheezing/shortness of breath. - HYDROcodone bitartrate 10 mg CR12 Take 1 tablet by mouth twice daily. Problem List As Of Date 01/16/2023 Noted Resolved DEPRESSIVE DISORDER NEC [F32.89] RESTLESS LEG (SYNDROME) [G25.89] 12/20/2005 Tobacco use disorder [F17.200] 12/20/2005 08/12/2018 ABDOMINAL PAIN LLQ [R10.32] 12/24/2006 DIARRHEA NOS [R19.7] 12/24/2006 NAUSEA ALONE [R11.0] B12 DEFIC ANEMIA NEC [D51.8] 07/14/2007 Back pain [M54.9] 10/15/2011 Depression [F32.A] 02/01/2012 Marital conflict [Z63.0] 02/01/2012 PTSD (post-traumatic stress disorder) [F43.10] 08/27/2014 Bilateral low back pain with sciatica [M54.40] 08/30/2015 Morbid obesity with BMI of 45.0-49.9, adult (HC*02/19/2018 Encounter for monitoring chronic NSAID therapy *05/26/2020 Spinal stenosis [M48.00] 12/26/2020 Migraine without status migrainosus, not intrac*10/03/2018 Degeneration of intervertebral disc of lumbar r*12/26/2020 SOB (shortness of breath) [R06.02] 07/18/2021 Encounter for support and coordination of trans*10/12/2021 Encounter Status:Closed by ESPERANZA HARMON on 01/16/23 [facility] 01-16-2023 Note HNO ID: [id number] Author: Esperanza Harmon MA Service: ? Author Type: Lease Examiner Type: Progress Notes Filed: 01/16/2023 3:04 PM Note Text: POPULATION HEALTH NAVIGATION OUTREACH Action/RAYMONDI DENG GILMAN ANNUAL MEDICARE WELLNESS COLORECTAL CANCER SCREENING due on 07/02/2015 MAMMOGRAM due on 01/31/2018 INFLUENZA(1) due on 07/19/2022 Patient Identified by Name and : NO Outreach Outcome/Action Unable to reach patient: Left message Did you use a PCP flex slot to schedule this appointment? N/A Reason for Outreach Care Gap or Scheduling/Wellness visits Payer: Payor: AETNA MEDICARE / Plan: AETNA MEDICARE ASSURE HMO D SNP / Product Type: Medicare / Care Gap Reviewed:: Annual Wellness visit Breast Cancer screening Colorectal Cancer Screening Flu Vaccine Reminder: Reminder note to check Health Maintenance for items below Health Maintenance items due: HEPATITIS C SCREENING Never done HIV SCREENING Never done SHINGRIX VACCINE(1 of 2) Never done COLORECTAL CANCER SCREENING due on 07/02/2015 MAMMOGRAM due on 01/31/2018 PAP TESTING due on 07/02/2019 HPV TESTING due on 07/02/2019 DTAP,TDAP,TD(2 - Td or Tdap) due on 10/18/2021 COVID-19 VACCINE(3 - Booster for Pfizer series) due on 10/25/2021 INFLUENZA(1) due on 07/19/2022 Navigation Signature: Esperanza Harmon MA January 16, 2023 10:39 AM [facility] 01-16-2023 History of Presen t illness Narrative POPULATION HEALTH NAVIGATION OUTREACH Action/FYI DENG GILMAN ANNUAL MEDICARE WELLNESS COLORECTAL CANCER SCREENING due on 07/02/2015 MAMMOGRAM due on 01/31/2018 INFLUENZA(1) due on 07/19/2022 Patient Identified by Name and : NO Outreach Outcome/Action Unable to reach patient: Left message Did you use a PCP flex slot to schedule this appointment? N/A Reason for Outreach Care Gap or Scheduling/Wellness visits Payer: Payor: [facility] MEDIC[facility] / Plan: AETNA MEDICARE ASSURE HMO D SNP / Product Type: Medicare / Care Gap Reviewed:: Annual Wellness visit Breast Cancer screening Colorectal Cancer Screening Flu Vaccine Reminder: Reminder note to check Health Maintenance for items below Health Maintenance items due: HEPATITIS C SCREENING Never done HIV SCREENING Never done SHINGRIX VACCINE(1 of 2) Never done COLORECTAL CANCER SCREENING due on 07/02/2015 MAMMOGRAM due on 01/31/2018 PAP TESTING due on 07/02/2019 HPV TESTING due on 07/02/2019 DTAP,TDAP,TD(2 - Td or Tdap) due on 10/18/2021 COVID-19 VACCINE(3 - Booster for Pfizer series) due on 10/25/2021 INFLUENZA(1) due on 07/19/2022 Navigation Signature: Esperanza Harmon MA January 16, 2023 10:39 AM documented in this encounter [facility] 11-13-2022 History of Presen t illness Narrative POPULATION HEALTH NAVIGATION OUTREACH Action/FYI SPOKE WITH MICKI She will call back later to schedule ANNUAL MEDICARE WELLNESS EXAM COLORECTAL CANCER SCREENING due on 07/02/2015 MAMMOGRAM due on 01/31/2018 INFLUENZA(1) due on 07/19/2022 Pt identified by name and : YES, via phone Outreach Outcome/Action Spoke to patient or caregiver: Patient will return the call or ask for return call Did you use a PCP flex slot to schedule this appointment? N/A Reason for Outreach Care Gap or Scheduling/Wellness visits Payer: Payor: [place] MEDICARE / Plan: AETNA MEDICARE ASSURE HMO D SNP / Product Type: Medicare / Care Gap Reviewed:: Annual Wellness visit Breast Cancer screening Colorectal Cancer Screening Flu vaccine Reminder: Reminder note to check Health Maintenance for items below Health Maintenance items due: HEPATITIS B(1 of 3 - 3-dose series) Never done HEPATITIS C SCREENING Never done HIV SCREENING Never done SHINGRIX VACCINE(1 of 2) Never done COLORECTAL CANCER SCREENING due on 07/02/2015 MAMMOGRAM due on 01/31/2018 PAP TESTING due on 07/02/2019 HPV TESTING due on 07/02/2019 DTAP,TDAP,TD(2 - Td or Tdap) due on 10/18/2021 COVID-19 VACCINE(3 - Booster for Pfizer series) due on 10/25/2021 INFLUENZA(1) due on 07/19/2022 Navigation Signature: Esperanza Harmon MA November 13, 2022 10:41 AM documented in this encounter [facility] 08-28-2022 Hospital Discharg e instructions Patient Education 08/28/2022 12:25:39 Bronchitis, Antibiotic Treatment (Adult) Bronchitis, Antibiotic Treatment (Adult) Bronchitis is an infection of the air passages (bronchial tubes) in your lungs. It often occurs when you have a cold. This illness is contagious during the first few days and is spread through the air by coughing and sneezing, or by direct contact (touching the sick person and then touching your own eyes, nose, or mouth). Symptoms of bronchitis include cough with mucus (phlegm) and low-grade fever. Bronchitis usually lasts 7 to 14 days. Mild cases can be treated with simple home remedies. More severe infection is treated with an antibiotic. Home care Follow these guidelines when caring for yourself at home: If your symptoms are severe, rest at home for the first 2 to 3 days. When you go back to your usual activities, don't let yourself get too tired. Don't smoke. Also stay away from secondhand smoke. You may use xhnj-soj-ojzlnih medicines to control fever or pain, unless another medicine was prescribed. If you have chronic liver or kidney disease or have ever had a stomach ulcer or gastrointestinal bleeding, talk with your healthcare provider before using these medicines. Also talk to your provider if you are taking medicine to prevent blood clots. Aspirin should never be given to anyone younger than 18 who is ill with a viral infection or fever. It may cause severe liver or brain damage. Your appetite may be low, so a light diet is fine. Stay well hydrated by drinking 6 to 8 glasses of fluids per day. This includes water, soft drinks, sports drinks, juices, tea, or soup. Extra fluids will help loosen mucus in your nose and lungs. Nrmq-zif-aactqtp cough, cold, and sore-throat medicines will not shorten the length of the illness, but they may be helpful to reduce your symptoms. Don't use decongestants if you have high blood pressure. Finish all antibiotic medicine. Do this even if you are feeling better after only a few days. Follow-up care Follow up with your healthcare provider, or as advised. If you had an X-ray or ECG (electrocardiogram), a specialist will review it. You will be told of any new test results that may affect your care. If you are age 65 or older, if you smoke, or if you have a chronic lung disease or condition that affects your immune system, ask your healthcare provider about getting a pneumococcal vaccine and a yearly flu shot (influenza vaccine). When to seek medical advice Call your healthcare provider right away if any of these occur: Fever of 100.4 F (38 C) or higher, or as directed by your healthcare provider Coughing up more sputum Weakness, drowsiness, headache, facial pain, ear pain, or a stiff neck Call 911 Call 911 if any of these occur. Coughing up blood Weakness, drowsiness, headache, or stiff neck that get worse Trouble breathing, wheezing, or pain with breathing [phone] [employer]. [address] [place] [address], [place] [address]. All rights reserved. This information is not intended as a substitute for professional medical care. Always follow your healthcare professional's instructions. Follow Up Care 08/28/2022 12:02:09 With:Kenya NASH Address: [facility] [address] [place], [place] [id number]- When:2-4 days With:Go to emergency room if symptoms worsen Address:Unknown When:2-4 days [facility] Raminrenetta Nichols 08-28-2022 Note Discharge Instructions Thank you for allowing [facility] to assist you with your healthcare needs. The following is important discharge information regarding your hospital visit. Diagnosis from Today's Visit Bronchitis Cough What to Do Next Instructions from Your Care Team No qualifying data available. Post Acute Orders No qualifying data available. You Need to Schedule the Following Appointments Follow Up with Kenya NASH When Within 2-4 days Where: [facility] [address] [place], [place] [address]- Follow Up with Go to emergency room if symptoms worsen When Within 2-4 days Allergies SEROquel ibuprofen iodine naproxen sulfa drug (red flush) Medications Please ask your primary doctor or pharmacist before taking any other medication not listed, including over the counter drugs, herbal medications, vitamins and or supplements as they may interact with your home medications. What How Much When Why Instructions Last Dose New benzonatate (Tessalon Perles 100 mg oral capsule) 1 cap by mouth Three (3) times a day Bronchitis Duration: 7 Days Printed Prescription New doxycycline (doxycycline monohydrate 100 mg oral capsule) 1 cap by mouth Two (2) times a day Bronchitis Duration: 10 Days Printed Prescription New fluticasone nasal (Flonase 50 mcg/ inh nasal spray) 1 spray(s) in the nose Two (2) times a day Bronchitis in each nostril Printed Prescription Unchanged acetaminophen (Tylenol 325 mg oral capsule) 650 Milligram by mouth Every 4 hours as needed for Pain, scale 1-3 Unchanged acetaminophen-hydrocodone (acetaminophen-hydrocodone 325 mg-5 mg oral tablet) 1 tab(s) by mouth Every 6 hours Unchanged apixaban (Eliquis 5 mg oral tablet) 2 tab(s) by mouth Two (2) times a day Duration: 2 Days Unchanged apixaban (Eliquis 5 mg oral tablet) 1 tab(s) by mouth Two (2) times a day Unchanged FLUoxetine (PROzac) 60 Milligram by mouth Once a day Please take this list to your next doctor s visit. Bring all medications you take, including over the counter medications, herbals and other supplements with you to your doctor s visit. Patients and families are reminded to discard old lists and to update any records with all medication providers or retail pharmacies. Medication Leaflets doxycycline (oral/injection) (DOX poornima gao) Acticlate, Adoxa, Alodox, Avidoxy, Doryx, Mondoxyne NL, Monodox, Morgidox, O[place]bo, Oracea, Oraxyl, Targadox, Vibramycin What is the most important information I should know about doxycycline? You should not take this medicine if you are allergic to any tetracycline antibiotic. Children younger than 8 years old should use doxycycline only in cases of severe or life-threatening conditions. This medicine can cause permanent yellowing or graying of the teeth in children Using doxycycline during could harm the unborn baby or cause permanent tooth discoloration later in the baby's life. What is doxycycline? Doxycycline is a tetracycline antibiotic that Doxycycline is used to treat many different bacterial infections, such as acne, urinary tract infections, intestinal infections, eye infections, gonorrhea, chlamydia, periodontitis (gum disease), and others. Doxycycline is also used to treat blemishes, bumps, and acne-like lesions caused by rosacea. Doxycycline will not treat facial redness caused by rosacea. Some forms of doxycycline are used to prevent malaria, to treat anthrax, or to treat infections caused by mites, ticks, or lice. Doxycycline may also be used for purposes not listed in this medication guide. What should I discuss with my healthcare provider before taking doxycycline? You should not take this medicine if you are allergic to doxycycline or other tetracycline antibiotics such as demeclocycline, minocycline, tetracycline, or tigecycline. Tell your doctor if you have ever had: liver disease; kidney disease; asthma or sulfite allergy; increased pressure inside your skull; or if you also take isotretinoin, seizure medicine, or a blood thinner such as warfarin (Coumadin). If you are using doxycycline to treat gonorrhea, your doctor may test you to make sure you do not also have syphilis, another sexually transmitted disease. Taking this medicine during may affect tooth and bone development in the unborn baby. Taking doxycycline during the last half of can cause permanent tooth discoloration later in the baby's life. Tell your doctor if you are or if you become . Doxycycline can make control pills less effective. Ask your doctor about using a non-hormonal control (condom, diaphragm with spermicide) to prevent . Doxycycline can pass into breast milk and may affect bone and tooth development in a nursing . Do not breastfeed while you are taking doxycycline. Doxycycline can cause permanent yellowing or graying of the teeth in children younger than 8 years old. Children should use doxycycline only in cases of severe or life-threatening conditions such as anthrax or [place] spotted fever. The benefit of treating a serious condition may outweigh any risks to the child's tooth development. How should I take doxycycline? Follow all directions on your prescription label and read all medication guides or instruction sheets. Use the medicine exactly as directed. Take doxycycline with a full glass of water. Drink plenty of liquids while you are taking doxycycline. Read and carefully follow any Instructions for Use provided with your medicine. Ask your doctor or pharmacist if you do not understand these instructions. Most brands of doxycyline may be taken with food or milk if the medicine upsets your stomach. Different brands of doxycycline may have different instructions about taking them with or without food. Take Oracea on an empty stomach, at least 1 hour before or 2 hours after a meal. You may need to split a doxycycline tablet to get the correct dose. Follow your doctor's instructions. Swallow a delayed-release capsule or tablet whole. Do not crush, chew, break, or open it. Measure liquid medicine with the dosing syringe provided, or with a special dose-measuring spoon or medicine cup. If you do not have a dose-measuring device, ask your pharmacist for one. If you take doxycycline to prevent malaria: Start taking the medicine 1 or 2 days before entering an area where malaria is common. Continue taking the medicine every day during your stay and for at least 4 weeks after you leave the area. Doxycycline is usually given by injection only if you are unable to take the medicine by mouth. A healthcare provider will give you this injection as an infusion into a vein. Use this medicine for the full prescribed length of time, even if your symptoms quickly improve. Skipping doses can increase your risk of infection that is resistant to medication. Doxycycline will not treat a viral infection such as the flu or a common cold. Store at room temperature away from moisture, heat, and light. Throw away any unused medicine after the expiration date on the label has passed. Using doxycycline can cause damage to your kidneys. What happens if I miss a dose? Take the medicine as soon as you can, but skip the missed dose if it is almost time for your next dose. Do not take two doses at one time. What happens if I overdose? Seek emergency medical attention or call the Poison Help line at . What should I avoid while taking doxycycline? Do not take iron supplements, multivitamins, calcium supplements, antacids, or laxatives within 2 hours before or after taking doxycycline. Avoid taking any other antibiotics with doxycycline unless your doctor has told you to. Doxycycline could make you sunburn more easily. Avoid sunlight or tanning beds. Wear protective clothing and use sunscreen (SPF 30 or higher) when you are outdoors. Antibiotic medicines can cause diarrhea, which may be a sign of a new infection. If you have diarrhea that is watery or bloody, call your doctor. Do not use anti-diarrhea medicine unless your doctor tells you to. What are the possible side effects of doxycycline? Get emergency medical help if you have signs of an allergic reaction (hives, difficult breathing, swelling in your face or throat) or a severe skin reaction (fever, sore throat, burning in your eyes, skin pain, red or purple skin rash that spreads and causes blistering and peeling). Seek medical treatment if you have a serious drug reaction that can affect many parts of your body. Symptoms may include: skin rash, fever, swollen glands, flu-like symptoms, muscle aches, severe weakness, unusual bruising, or yellowing of your skin or eyes. This reaction may occur several weeks after you began using doxycycline. Call your doctor at once if you have: severe stomach pain, diarrhea that is watery or bloody; throat irritation, trouble swallowing; chest pain, irregular heart rhythm, feeling short of breath; little or no urination; low white blood cell counts--fever, chills, swollen glands, body aches, weakness, pale skin, easy bruising or bleeding; increased pressure inside the skull--severe headaches, ringing in your ears, dizziness, nausea, vision problems, pain behind your eyes; or signs of liver or pancreas problems--loss of appetite, upper stomach pain (that may spread to your back), tiredness, nausea or vomiting, fast heart rate, dark urine, jaundice (yellowing of the skin or eyes). Common side effects may include: nausea, vomiting, upset stomach, loss of appetite; mild diarrhea; skin rash or itching; darkened skin color; or vaginal itching or discharge. This is not a complete list of side effects and others may occur. Call your doctor for medical advice about side effects. You may report side effects to FDA at 8-842-LBK-6914. What other drugs will affect doxycycline? Sometimes it is not safe to use certain medications at the same time. Some drugs can affect your blood levels of other drugs you take, which may increase side effects or make the medications less effective. Other drugs may affect doxycycline, including prescription and jhdu-bxs-zrfxmbb medicines, vitamins, and herbal products. Tell your doctor about all your current medicines and any medicine you start or stop using. Where can I get more information? Your pharmacist can provide more information about doxycycline. Remember, keep this and all other medicines out of the reach of children, never share your medicines with others, and use this medication only for the indication prescribed. Every effort has been made to ensure that the information provided by [employer]. ('[employer]') is accurate, up-to-date, and complete, but no guarantee is made to that effect. Drug information contained herein may be time sensitive. [employer] information has been compiled for use by healthcare practitioners and consumers in the [place] and therefore [employer] does not warrant that uses outside of the [place] are appropriate, unless specifically indicated otherwise. [employer] drug information does not endorse drugs, diagnose patients or recommend therapy. [employer] drug information is an informational resource designed to assist licensed healthcare practitioners in caring for their patients and/or to serve consumers viewing this service as a supplement to, and not a substitute for, the expertise, skill, knowledge and judgment of healthcare practitioners. The absence of a warning for a given drug or drug combination in no way should be construed to indicate that the drug or drug combination is safe, effective or appropriate for any given patient. [employer] does not assume any responsibility for any aspect of healthcare administered with the aid of information [employer] provides. The information contained herein is not intended to cover all possible uses, directions, precautions, warnings, drug interactions, allergic reactions, or adverse effects. If you have questions about the drugs you are taking, check with your doctor, nurse or pharmacist. Copyright 9785-7386 [employer]. Version: 21.04. Revision Date: 09/21/2020. fluticasone nasal (floo TIK a sone) Flonase, Veramyst, Xhance What is the most important information I should know about fluticasone nasal? Follow all directions on your medicine label and package. Tell each of your healthcare providers about all your medical conditions,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 Confidentiality of Alcohol and Drug Abuse Patient Records regulations: The Federal rules restrict any use of the information to criminally investigate or prosecute any alcohol or drug abuse patient.[facility] the event this information is protected by the Federal Confidentiality of Alcohol and Drug Abuse Patient Records regulations: The Federal rules restrict any use of the information to criminally investigate or prosecute any alcohol or drug abuse patient.[facility] the event this information is protected by the Federal Confidentiality of Alcohol and Drug Abuse Patient Records regulations: The Federal rules restrict any use of the information to criminally investigate or prosecute any alcohol or drug abuse patient.[facility] the event this information is protected by the Federal Confidentiality of Alcohol and Drug Abuse Patient Records regulations: The Federal rules restrict any use of the information to criminally investigate or prosecute any alcohol or drug abuse patient.[facility] Hospital[facility] the event this information is protected by the Federal Confidentiality of Alcohol and Drug Abuse Patient Records regulations: The Federal rules restrict any use of the information to criminally investigate or prosecute any alcohol or drug abuse patient.[facility] the event this information is protected by the Federal Confidentiality of Alcohol and Drug Abuse Patient Records regulations: The Federal rules restrict any use of the information to criminally investigate or prosecute any alcohol or drug abuse patient.[facility] the event this information is protected by the Federal Confidentiality of Alcohol and Drug Abuse Patient Records regulations: The Federal rules restrict any use of the information to criminally investigate or prosecute any alcohol or drug abuse patient.[facility] Hospital[facility] the event this information is protected by the Federal Confidentiality of Alcohol and Drug Abuse Patient Records regulations: The Federal rules restrict any use of the information to criminally investigate or prosecute any alcohol or drug abuse patient.[facility] Hospital[facility] the event this information is protected by the Federal Confidentiality of Alcohol and Drug Abuse Patient Records regulations: The Federal rules restrict any use of the information to criminally investigate or prosecute any alcohol or drug abuse patient.[facility] Hospital[facility] the event this information is protected by the Federal Confidentiality of Alcohol and Drug Abuse Patient Records regulations: The Federal rules restrict any use of the information to criminally investigate or prosecute any alcohol or drug abuse patient.[facility] the event this information is protected by the Federal Confidentiality of Alcohol and Drug Abuse Patient Records regulations: The Federal rules restrict any use of the information to criminally investigate or prosecute any alcohol or drug abuse patient.[facility] Hospital[facility] the event this information is protected by the Federal Confidentiality of Alcohol and Drug Abuse Patient Records regulations: The Federal rules restrict any use of the information to criminally investigate or prosecute any alcohol or drug abuse patient.[facility] HospitalIn the event this information is protected by the Federal Confidentiality of Alcohol and Drug Abuse Patient Records regulations: The Federal rules restrict any use of the information to criminally investigate or prosecute any alcohol or drug abuse patient.[facility] HospitalIn the event this information is protected by the Federal Confidentiality of Alcohol and Drug Abuse Patient Records regulations: The Federal rules restrict any use of the information to criminally investigate or prosecute any alcohol or drug abuse patient.[facility] HospitalIn the event this information is protected by the Federal Confidentiality of Alcohol and Drug Abuse Patient Records regulations: The Federal rules restrict any use of the information to criminally investigate or prosecute any alcohol or drug abuse patient.[facility] HospitalIn the event this information is protected by the Federal Confidentiality of Alcohol and Drug Abuse Patient Records regulations: The Federal rules restrict any use of the information to criminally investigate or prosecute any alcohol or drug abuse patient.[facility] HospitalIn the event this information is protected by the Federal Confidentiality of Alcohol and Drug Abuse Patient Records regulations: The Federal rules restrict any use of the information to criminally investigate or prosecute any alcohol or drug abuse patient.[facility] HospitalIn the event this information is protected by the Federal Confidentiality of Alcohol and Drug Abuse Patient Records regulations: The Federal rules restrict any use of the information to criminally investigate or prosecute any alcohol or drug abuse patient.[facility] Reason for Visit (unrecogniz ed section and content) Reason Comments Insurance Authorization Reason Comments Appointment Reason Onset Date Comments Population Health Navigation Outreach 08/27/2022 HCC gap Reason Onset Date Comments Population Health Navigation Outreach 11/13/2022 [facility] [place] [facility] Reason Onset Date Comments Population Health Navigation Outreach 01/16/2023 [facility] [place] Reason Onset Date Comments Population Health Navigation Outreach 03/07/2023 [facility] [place] [facility] Reason Onset Date Comments Population Health Navigation Outreach 05/22/2023 [facility] [place] [facility] Reason Comments Patient Question Reason Comments Patient Update Reason Comments Obesity Specialty Diagnoses / Procedures Referred By Contac t Referred To Contact Diagnoses Morbid obesity with BMI of 45.0-49.9, adult (HCC) Obesity, Class III, BMI 40-49.9 (morbid obesity) (HCC) Procedures CONSULT [facility] OFFICE/OUTPATIENT [facility] 60-74 MINUTES Kenya Nash PA-C [address] [place] [address] Referral ID Status Reason Start Date Expiration Date V isits Requested Visits Authorized [id number] Closed PCP Requested Referral 08/06/2023 08/05/2024 1 1 Reason Comments New Patient Reason Comments No Show Reason Onset Date Comments Population Health Navigation Outreach 10/14/2023 [facility] GAPS Reason Comments Opened In Error Reason Comments Follow Up Reason Comments Obesity Care Teams (unrecognized sec tion and content) Wound Nurse Relationship Specialty Start Date End Date Kenya Nash PA-C [address] [facility] [place] [address] PCP - General Family Practice 05/26/20 Wound Nurse Relationship Specialty Start Date End Date Kenya Nash PA-C [address] [place] [address] PCP - General Family Practice 05/26/20 Wound Nurse Relationship Specialty Start Date End Date Kenya Nash PA-C [address] [place] [address] PCP - General Family Practice 05/26/20 Wound Nurse Relationship Specialty Start Date End Date Kenya Nash PA-C [address] [place] [address] PCP - General Family Practice 05/26/20 Wound Nurse Relationship Specialty Start Date End Date Kenya Nash PA-C [address] [place] [address] PCP - General Family Medicine 05/26/20 Wound Nurse Relationship Specialty Start Date End Date Kenya Nash PA-C [address] [facility] [place] [address] PCP - General Family Medicine 05/26/20 Wound Nurse Relationship Specialty Start Date End Date Kenya Nash PA-C [address] [place] [address] PCP - General Family Medicine 05/26/20 Wound Nurse Relationship Specialty Start Date End Date Kenya Nash PA-C [address] [facility] [place] [address] PCP - General Family Medicine 05/26/20 Wound Nurse Relationship Specialty Start Date End Date Kenya Nash PA-C [address] [facility] [place] [address] PCP - General Family Medicine 05/26/20 Wound Nurse Relationship Specialty Start Date End Date Kenya Nash PA-C [address] [facility] [place] [address] PCP - General Family Medicine 05/26/20 Wound Nurse Relationship Specialty Start Date End Date Kenya Nash PA-C [address] [facility] [place] [address] PCP - General Family Medicine 05/26/20 Wound Nurse Relationship Specialty Start Date End Date Kenya Nash PA-C [address] [facility] [place] [address] PCP - General Family Medicine 05/26/20 Wound Nurse Relationship Specialty Start Date End Date Kenya Nash PA-C [address] [facility] [place] [address] PCP - General Family Medicine 05/26/20 Wound Nurse Relationship Specialty Start Date End Date Kenya Nash PA-C [address] [facility] [place] [address] PCP - General Family Medicine 05/26/20 Wound Nurse Relationship Specialty Start Date End Date Kenya Nash PA-C [address] [facility] [place] [address] PCP - General Family Medicine 05/26/20 Wound Nurse Relationship Specialty Start Date End Date Kenya Nash PA-C [address] [place] [address] PCP - General Family Medicine 05/26/20 Wound Nurse Relationship Specialty Start Date End Date Kenya Nash PA-C [address] [place], [place] [address] PCP - General [facility] 05/26/20 Wound Nurse Relationship Specialty Start Date End Date Kenya Nash PA-C [address] [place], [place] [address] PCP - General [facility] 05/26/20 Wound Nurse Relationship Specialty Start Date End Date Kenya Nash PA-C [address] [place], [place] [address] PCP - [facility] 05/26/20 Care Team (unrecognized sect ion and content) Care Team Personnel Name: Kenya NASH PA Member Role: Primary Care Physician Address: Address: [facility] [address] [place] [address] [address] [place] [address]- Care Team Related Persons Name: TRINI GARIBAY Address: [facility] Name: JAYNA GARIBAY Address: [facility] FOR RECORDS PERTAINING TO PATIENTS WHO ARE OR HAVE BEEN ENROLLED IN A CHEMICAL DEPENDENCY/SUBSTANCEABUSE PROGRAM, SOME INFORMATION MAY BE OMITTED. This clinical summary was aggregated from multiple sources. Caution should be exercised in using it in the provision of clinical care. This summary normalizes information from multiple sources, and as a consequence, information in this document may materially change the coding, format and clinical context of patient data. In addition, data may be omitted in some cases. CLINICAL DECISIONS SHOULD BE BASED ON THE PRIMARY CLINICAL RECORDS. [employer] [facility]. provides no warranty or guarantee of the accuracy or completeness of information in this document.
== END 2023-12-15 15:34 | disposition home or self-care (01) ==
LOC: ED 15:30
PROVIDERS: Emergency Provider Emergency Medicine; Visit Provider Emergency Medicine
DX: S51.002A Unspecified open wound of left elbow, initial encounter (principal); Z87.891 Personal history of nicotine dependence; X58.XXXA Exposure to other specified factors, initial encounter
CPT/HCPCS: 99282

== ENCOUNTER → 2024-03-05 | Outpatient (CLI) | payer MEDICARE, MEDICAID, SELFPAY ==
[2024-03-05 17:02] LABS: Amphetamine Urine VISTA POSITIVE (<1000 ng/mL); Barbiturate Urine VISTA NEGATIVE (< 200 ng/mL); Benzodiazepine Urine VISTA NEGATIVE (< 200 ng/mL); Cocaine Urine VISTA NEGATIVE (< 300 ng/mL); Ecstacy Urine VISTA NEGATIVE (< 500 ng/mL); Methadone Urine VISTA NEGATIVE (< 300 ng/mL); PCP Urine VISTA NEGATIVE (< 25 ng/mL); THC Urine VISTA NEGATIVE (< 50 ng/mL); Vista UDS pH Range 5
== END | disposition home or self-care (01) ==
LOC: LAB 15:00
PROVIDERS: Referring Provider Anesthesiology Pain Medicine; Visit Provider Anesthesiology Pain Medicine
DX: F11.20 Opioid dependence, uncomplicated (principal)
CPT/HCPCS: 80307

== ENCOUNTER → 2025-01-04 | Outpatient (CLI) | payer MEDICARE, MEDICAID, SELFPAY ==
--- NOTE | 2025-01-04 11:34 | RAD_ITS ---
PROCEDURE: Pelvis and bilateral hip radiographs, five views REASON FOR EXAM: Bilateral hip pain TECHNIQUE: Five views of the pelvis and bilateral hips were obtained. COMPARISON: 11/02/2022 FINDINGS: Five views of the pelvis and bilateral hips were obtained. Mild degenerative changes in the hip joints and lower lumbar spine. No displaced pelvic fracture. No acute fracture or dislocation of either hip. Bone detail is limited due to overlying soft tissues. RAD/Hips B/L min 2 views w/ Pelvis IMPRESSION: No acute bony abnormality of the pelvis/bilateral hips. Mild degenerative changes in the lumbar spine and hip joints. If there is persistent pain or clinical concern, short-term follow-up MRI evalu ation may be helpful. Reading Location: [facility]
== END | disposition home or self-care (01) ==
LOC: RAD 11:32
PROVIDERS: Referring Provider Anesthesiology Pain Medicine; Visit Provider Anesthesiology Pain Medicine
DX: M25.551 Pain in right hip (principal); M25.552 Pain in left hip
CPT/HCPCS: 73521

== ENCOUNTER → 2025-03-09 | Outpatient (CLI) | payer MEDICARE, MEDICAID, SELFPAY ==
[2025-03-09 11:23] LABS: Amphetamine Urine NEGATIVE (<1000 ng/mL); Barbiturate Urine NEGATIVE (< 200 ng/mL); Benzodiazepine Urine NEGATIVE (< 200 ng/mL); Buprenorphine Urine NEGATIVE (< 200 ng/mL); Cocaine Urine NEGATIVE (< 300 ng/mL); Fentanyl, Urine NEGATIVE; Methadone Urine NEGATIVE (< 300 ng/mL); Opiates Urine PRESUMPTIVE POSITIVE (< 300 ng/mL); Oxycodone, Urine PRESUMPTIVE POSITIVE (< 100 ng/mL); PCP Urine NEGATIVE (< 25 ng/mL); THC Urine NEGATIVE (< 50 ng/mL)
== END | disposition home or self-care (01) ==
LOC: LAB 10:00
PROVIDERS: PCP Clinical Nurse Specialist Adult Health; Referring Provider Anesthesiology Pain Medicine; Visit Provider Anesthesiology Pain Medicine
DX: F11.20 Opioid dependence, uncomplicated (principal)
CPT/HCPCS: 80307

== ENCOUNTER 2025-08-13 16:27 | Inpatient (IN) | payer MEDICARE, MEDICAID, SELFPAY ==
[2025-08-13] VITALS (7 sets, daily range): BP systolic 125–138; BP diastolic 71–98; PULSE 87–104; RESP 17–25; TEMP 36.7–36.9; O2SAT 84–95; BMI 43.5
--- NOTE | 2025-08-13 19:31 | CT_ITS ---
PROCEDURE: BRAIN/HEAD WITHOUT CONTRAST 08/13/2025 REASON FOR EXAM: TRAUMA TECHNIQUE: Procedure Code: CTBR Modality: CT Procedure: BRAIN/HEAD WITHOUT CONTRAST Coronal and Sagittal reconstruction series were provided. One or more dose reduction techniques were used (e.g., Automated exposure control, adjustment of the mA and/or kV according to patient size, use of iterative reconstruction technique. RADIATION DOSE SUMMARY: CTDlvol: mGy DLP: 813 mGycm COMPARISON: 10/06/2021 FINDINGS: Brainstem and cerebellum unremarkable. No hydrocephalus. No hemorrhage. No edema. Sinuses are clear. Bony calvarium intact. CT/Brain/Head without Contrast IMPRESSION: No acute abnormality Reading Location: [facility]
--- NOTE | 2025-08-13 19:31 | CT_ITS ---
PROCEDURE: CT CHEST, ABD, PEL W/CONTRAST 08/13/2025 REASON FOR EXAM: MULTIPLE FALL, HYPOXIA TECHNIQUE: Chest, abdomen and pelvis CT with intravenous contrast. Coronal and Sagittal reconstruction series were provided. One or more dose reduction techniques were used (e.g., Automated exposure control, adjustment of the mA and/or kV according to patient size, use of iterative reconstruction technique. CONTRAST: Isovue 370 VOLUME: 100mL RADIATION DOSE SUMMARY: CTDlvol: 140 mGy DLP: 4075 mGycm FINDINGS: Inspection of the lung parenchyma demonstrates no areas of mass, effusion, edema or enzo consolidation. Normal axilla and chest wall. Mild pericardial fluid. Normal aorta. No mediastinal mass. Minimal coronary artery calcification. No aortic injury. There is a normal appearance to the liver in the spleen. The pancreas demonstrates fatty change. Gallbladder presumed to be surgically absent. Normal adrenal glands. No renal mass or hydronephrosis. No free air. No free-fluid. No bowel obstruction. No diverticulitis. No findings of appendicitis. No retroperitoneal abnormality. CT/CT Chest, Abd, Pel w/Contrast IMPRESSION: No acute abnormality Reading Location[facility]
--- NOTE | 2025-08-13 19:31 | CT_ITS ---
PROCEDURE: SPINE CERVICAL WITHOUT CONTRAS 08/13/2025 REASON FOR EXAM: TRAUMA TECHNIQUE: Procedure Code: CTSPC Modality: CT Procedure: SPINE CERVICAL WITHOUT CONTRAS Coronal and Sagittal reconstruction series were provided. One or more dose reduction techniques were used (e.g., Automated exposure control, adjustment of the mA and/or kV according to patient size, use of iterative reconstruction technique. RADIATION DOSE SUMMARY: Not provided FINDINGS: Mild reversal normal cervical lordosis. No compression deformity. Ventral osteophytes at C5-6. Normal C1 and C2 vertebra including the odontoid process. Axial images with intact pedicles, lamina and facets. No degenerative changes. No soft tissue masses are identified. There is no compression fracture CT/Spine Cervical without Contras IMPRESSION: Negative for fracture Reading Location: [facility]
--- NOTE | 2025-08-13 19:31 | EKG12_ITS ---
Test Reason : Blood Pressure : */* mmHG Vent. Rate : 93 BPM Atrial Rate : 93 BPM P-R Int : 166 ms QRS Dur : 126 ms QT Int : 374 ms P-R-T Axes : 20 -25 -3 degrees QTcB Int : 465 ms Normal sinus rhythm Right bundle branch block Abnormal ECG Confirmed by DERRICK MCCONNELL ([id number]), digital editor NAVA BUSH ([id number]) on 08/16/2025 9:06:19 AM Referred By: Confirmed By: DERRICK MCCONNELL
--- NOTE | 2025-08-13 19:32 | EDS_ITS ---
HPI History of Present Illness Chief Complaint: Laceration Narrative Narrative: Patient is a 59-year-old female past medical history anxiety, migraines, depression who presents to the emergency department chief complaint of multiple falls. Patient states that she fell earlier this week and then fell again today around 2:00 she states that she hit her head on the door did not pass out. She states that she feels extremely weak and her legs are giving out on her. She states that she fell out in the waiting room as well as she states that she wanted to leave and go home however when she tried to get up and walk she fell. Per nursing note she was hypoxic on room air at 80% she is requiring oxygen which she normally does not. Patient denies any other complaints. Patient states that she does not drink alcohol, denies tobacco use denies any IV drug use [facility] Medical History Left wrist injury Depression Anxiety Chronic indwelling Wahl catheter Non-smoker Migraines Home Medications Medication Instructions Recorded Last Taken Type amitriptyline 100 mg tablet 150 mg PO QHS sleep 08/14/20 History oxycodone myristate 18 mg capsule 18 mg PO BID 5 Unknown History sprinkle extended release 12hr(DON'T CRUSH) (Xtampza ER) scopolamine base 1 mg over 3 days 1 patch topical Q3D 08/13/25 Unknown History transdermal patch Allergy/AdvReac Type Severity Reaction Status Date / Time NSAIDS (Non-Steroidal Allergy Rash Verified 12/15/23 15:27 Anti-Inflamma Sulfa (Sulfonamide Allergy Rash Verified 12/15/23 15:27 Antibiotics) morphine AdvReac Mild Unknown Verified 12/15/23 15:27 iodine AdvReac Vomiting Verified 12/15/23 15:27 Surgical History History of hysterectomy History of cholecystectomy Social History household members: none Smoking Status: Former smoker alcohol intake: current ROS ROS ED ROS Narrative Constitutional: Complains headache denies any lightness or dizziness Eyes: Denies double vision Cardiovascular: Denies chest pain Respiratory: Denies shortness of breath, coughing Abdomen: Denies abdominal pain nausea vomiting diarrhea : Denies urinary symptoms Neurological: Complains of generalized weakness with multiple falls as noted above denies any numbness or tingling Musculoskeletal: Denies back pain Skin: Denies any rashes or lesions EXAM Physical Exam Narrative Exam Narrative: General: Patient was lying in bed rest comfortably did not appear to be in acute distress Head: Patient has small abrasion noted to the posterior right aspect of her head no active bleeding noted, normocephalic Eyes: PERRL bilaterally, EOMI bilaterally, no conjunctival injection noted Neck: Soft, supple, trachea midline Cardiovascular: Regular rate and rhythm Respiratory: Clear to auscultation bilaterally Abdomen: Soft, nondistended, no tenderness to palpation Musculoskeletal: All bony prominences palpated joints taken to full range of motion no pain elicited Extremities: +4/5 strength noted in the bilateral upper and lower extremities Neurological: Patient following commands knew that she was at [facility] the year is 2024 NIH of 0 GCS 15 Skin: See head no other rashes or lesions noted Const Vital Signs: 08/13/25 16:39 08/13/25 16:42 08/13/25 19:23 Temperature 98.5 F Temperature Source Oral Pulse Rate 104 H 94 Respiratory Rate 18 23 H Respiratory Effort Respiratory Depth Respiratory Pattern Blood Pressure 138/98 H 135/78 H Blood Pressure Mean 111 97 Pulse Ox 88 93 94 Oxygen Delivery Method Room Air Room Air Room Air Oxygen Flow Rate (L/min) 2 08/13/25 19:25 08/13/25 21:00 08/13/25 22:55 Temperature Temperature Source Pulse Rate 90 Respiratory Rate 17 Respiratory Effort Normal Non-Labored Respiratory Depth Normal Respiratory Pattern Normal Blood Pressure 132/81 H Blood Pressure Mean 98 Pulse Ox 95 84 Oxygen Delivery Method Nasal Cannula Room Air Room Air Oxygen Flow Rate (L/min) 2 08/13/25 23:00 Temperature Temperature Source Pulse Rate 88 Respiratory Rate 25 H Respiratory Effort Respiratory Depth Respiratory Pattern Blood Pressure 125/72 H Blood Pressure Mean 89 Pulse Ox 93 Oxygen Delivery Method Nasal Cannula Oxygen Flow Rate (L/min) 2 MDM MDM MDM Narrative Medical decision making narrative: Patient is a 59-year-old female who presents to the emergency department the chief complaint of multiple falls and she was found to be hypoxic in the emergency department waiting room. On the differential diagnosis includes but not limited to pneumonia, pneumothorax, electrolyte abnormality, rib fractures, intra-abdominal process. Once workup is obtained reviewed she will be reevaluated. Patient be given a gram Tylenol for headache as well as Zofran and IV fluids. Tetanus shot updated. Patient's CBC was significant for leukocytosis of 14,000, he was 14.2, platelet count was noted be 325. Patient INR 1.1, PT 14.4. Patient sodium is 139, potassium normal 3.9, creatinine was 0.85. AST and ALT are 33 and 29 respectively. Urinalysis pending.Patient CT head and brain without contrast showed no acute abnormalities. Patient CT cervical spine showed no acute fractures. Patient's CT chest, abdomen, pelvis with IV contrast reviewed and showed no acute abnormalities. Patient's EKG showed sinus rhythm with a rate of 93 bpm with a MS interval at 166. Evidence of right bundle branch block noted.Patient is EKG reviewed from August 15, 2020 also showed evidence of incomplete right bundle branch block that point time as well. Patient is not requiring oxygen at this point time. At this point time will discuss case with hospitalist for admission given her multiple falls, generalized weakness and new oxygen requirement. Discussed case with hospitalist who accept patient for admission Dr. Gerard. He is requesting IV Rocephin be given which was ordered. Patient was notified is agreeable this plan all question concerns answered. Lab Data Labs: Laboratory Results - last 24 hr 08/13/25 08/13/25 19:50 20:52 WBC 14.4 H RBC 4.82 Hgb 14.2 Hct 44.3 MCV 91.9 MCH 29.5 MCHC 32.1 RDW Std Deviation 49.4 H RDW Coeff of Drew 14.6 Plt Count 325 MPV 10.2 Immature Gran % (Auto) 0.300 Neut % (Auto) 75.7 H Lymph % (Auto) 16.8 L [place] % (Auto) 6.1 Eos % (Auto) 0.8 Baso % (Auto) 0.3 Absolute Neuts (auto) 10.9 H Absolute Lymphs (auto) 2.41 Nucleated RBC % 0 PT 14.4 INR 1.1 APTT 28.3 Sodium 139 Potassium 3.9 Chloride 102 Carbon Dioxide 23.1 Anion Gap 14 BUN 13 Creatinine 0.85 Estim Creat Clear Calc 92.79 Est GFR (MDRD) Non-Af 78 BUN/Creatinine Ratio 14.7 Glucose 95 Calcium 9.2 Total Bilirubin 0.36 Direct Bilirubin 0.19 AST 33 H ALT 29 Alkaline Phosphatase 101 Total Protein 6.9 Albumin 3.7 Globulin 3.2 Urine Color Yellow Urine Clarity Clear Urine pH 6.0 Ur Specific [place] 1.010 Urine Protein 15 H Urine Glucose (UA) Normal Urine Ketones Negative Urine Occult Blood Negative Urine Nitrite Negative Urine Bilirubin Negative Urine Urobilinogen Normal Ur Leukocyte Esterase 25 H Urine RBC 0-5 SEEN Urine WBC 5-10 SEEN Ur Squamous Epith Cells 5-10 SEEN Ur Transition Epith Cell 0-5 SEEN Urine Bacteria 0 SEEN Urine Mucus 0 SEEN Radiography Diagnostic Testing: Clinical Impression(s) from Imaging Studies Brain CT 08/13/25 19:31 IMPRESSION: No acute abnormality Reading Location: [facility] Cervical Spine CT 08/13/25 19:31 IMPRESSION: Negative for fracture Reading Location: [facility] Chest/Abdomen/Pelvis CT 08/13/25 19:31 IMPRESSION: No acute abnormality Reading Location: [facility] Discharge Plan Dx/Rx/DC Orders Clinical Impression: Generalized weakness, Multiple falls, Abrasion head Disposition Disposition: Acute Care [facility]
[2025-08-13 20:02] LABS: Hematocrit 44.3 % (37-47); Hemoglobin 14.2 g/dL (12.0-15.0); Immature Granulocytes Count 0.040 X10^3/uL (0.0-0.0); Mean Corp Hgb Conc 32.1 g/dL (32-36); Mean Corpuscular Volume 91.9 fL (81-99); Mean Platelet Vol. 10.2 fl (6.2-12.0); NRBC Flagged by Analyzer 0 % (0-5); Platelet Count 325 K/mm3 (150-450); RBC Distribution Width CV 14.6 % (11.6-14.6); RBC Distribution Width SD 49.4 fl (35.1-43.9); Red Blood Count 4.82 M/mm3 (4.2-5.4); White Blood Count 14.4 K/mm3 (4.4-11.0)
[2025-08-13 20:13] LABS: Prothrombin Time (Protime)PT. 14.4 SECONDS (11.7-14.9)
[2025-08-13 20:14] LABS: Partial Thromboplast Time 28.3 Seconds (24.1-36.2)
[2025-08-13] MEDS: 0.9% Normal Saline (1000mL) 1,000 ML 999 ML IV (20:25)
[2025-08-13 21:03] LABS: Mucous, Urine 0 SEEN /hpf (<or=2+)
[2025-08-13 21:18] LABS: AST(SGOT) 33 U/L (<=31); Alanine Aminotransfer ALT/SGPT 29 U/L (<=34); Albumin, Serum 3.7 g/dL (3.4-4.8); Alkaline Phosphatase 101 U/L (35-104); Anion Gap 14 (5-15); BUN 13 mg/dL (4-19); BUN/Creat Ratio 14.7 RATIO (10-20); Bilirubin, Direct 0.19 mg/dL (0.00-0.30); Calcium,Total 9.2 mg/dL (7.6-11.0); Carbon Dioxide 23.1 mmol/L (21.0-32.0); Chloride 102 mmol/L (98-108); Estimated Creatinine Clearance 92.79 ml/min (50-250); Globulin 3.2 g/dL (2.2-4.2); Glucose 95 mg/dL (70-99); Potassium 3.9 mmol/L (3.3-5.1)
[2025-08-13 21:41] LABS: Color, Urine Yellow (Yellow); Glucose, Dipstick Normal (Normal); Ketone-Dipstick Negative (Negative); Leukocyte Esterase-Dipstick 25 /ul (Negative); Nitrite-Dipstick Negative (Negative); Occult Blood-Urine Negative /ul (Negative); Protein-Dipstick 15 mg/dl (Negative); Specific Gravity, Urine 1.010 (1.002-1.030); Urine Bilirubin Dipstick Negative (Negative)
[2025-08-13 22:27] LABS: Squamous Epithelial Cells - UA 5-10 SEEN /hpf (5-10)
[2025-08-13 22:29] LABS: Transitional Epithelial - Ur 0-5 SEEN /hpf (0-5)
[2025-08-13 22:31] LABS: Red Blood Cells-Urine 0-5 SEEN /hpf (0-5)
--- NOTE | 2025-08-13 23:14 | PCM.HP.STD ---
[facility] - General General Date of Admission: 08/13/25 Date of Service: 08/13/25 Chief Complaint: Ambulatory Dysfunction with Frequent Falls. HPI Narrative SIS WHITNEY, is a 59 F with a past medical history of morbid (class III) obesity; with BMI of 43.6 this admission, former tobacco abuse, depression with anxiety; on amitriptyline, migraine headaches, chronic indwelling Wahl catheter, history of hysterectomy, history of cholecystectomy and OA who presents to [facility] ER complaining of ambulatory dysfunction with frequent falls. Ms. Whitney reports her symptoms began approximately 1 week prior to admission when she fell for the first time followed by a second time earlier today around 2 PM when she fell and hit her head on the door but did not lose consciousness or have significant traumatic injury. She states she feels extremely weak and her legs are just suddenly giving out on her with patient frustrated due to long wait time in the ER and when she tried to leave her legs suddenly gave out and she had a third fall with patient also noted to be transiently hypoxic at 80% on RA. Patient admits to headache but denies fever, chills lightheadedness, dizziness, double vision, discharge from eyes, chest pain, palpitations, heart racing, shortness of breath, cough, abdominal pain, nausea, vomiting, diarrhea, constipation, dysuria, hematuria or rash. In the ER she was noted to have a Leukocytosis of 14.4 K present on admission with UA weakly positive for Acute Cystitis; without hematuria complicated by clinical evidence of ambulatory dysfunction with frequent falls with patient also undergoing head CT which revealed no acute abnormality followed by CT of C-spine which showed no evidence of fracture in addition to CT scan of the chest abdomen and pelvis with IV contrast that revealed no acute abnormality. She was then admitted to the general medical floor for ongoing care for state that is expected to extend beyond 2 midnights. [facility] Medical History Left wrist injury Depression Anxiety Chronic indwelling Wahl catheter Non-smoker Migraines Home Medications Medication Instructions Recorded Last Taken Type amitriptyline 100 mg tablet 150 mg PO QHS sleep 08/15/20 08/12/25 History oxycodone myristate 18 mg capsule 18 mg PO BID pain 08/13/25 08/13/25 07:00 History sprinkle extended release 12hr(DON'T CRUSH) (Xtampza ER) scopolamine base 1 mg over 3 days 1 patch topical Q3D nausea 08/13/25 08/12/25 History transdermal patch dulaglutide 0.75 mg/0.5 mL 0.75 mg subcut QWEEK prediabetes 08/14/25 08/10/25 History subcutaneous pen injector (Trulicity) Allergy/AdvReac Type Severity Reaction Status Date / Time NSAIDS (Non-Steroidal Allergy Rash Verified 08/14/25 00:45 Anti-Inflamma Sulfa (Sulfonamide Allergy Rash Verified 08/14/25 00:45 Antibiotics) morphine AdvReac Mild Nausea/Vom/Stomach Verified 08/14/25 00:45 cramps iodine AdvReac Vomiting Verified 08/14/25 00:45 Surgical History History of hysterectomy History of cholecystectomy Social History household members: none Smoking Status: Former smoker alcohol intake: current Vital Signs Vital Signs Vital Signs: 08/13/25 16:39 08/13/25 16:42 08/13/25 19:23 Temperature 98.5 F Temperature Source Oral Pulse Rate 104 H 94 Respiratory Rate 18 23 H Respiratory Effort Respiratory Depth Respiratory Pattern Blood Pressure 138/98 H 135/78 H Blood Pressure Mean 111 97 Pulse Ox 88 93 94 Oxygen Delivery Method Room Air Room Air Room Air Oxygen Flow Rate (L/min) 2 08/13/25 19:25 08/13/25 21:00 08/13/25 22:55 Temperature Temperature Source Pulse Rate 90 Respiratory Rate 17 Respiratory Effort Normal Non-Labored Respiratory Depth Normal Respiratory Pattern Normal Blood Pressure 132/81 H Blood Pressure Mean 98 Pulse Ox 95 84 Oxygen Delivery Method Nasal Cannula Room Air Room Air Oxygen Flow Rate (L/min) 2 08/13/25 23:00 Temperature Temperature Source Pulse Rate 88 Respiratory Rate 25 H Respiratory Effort Respiratory Depth Respiratory Pattern Blood Pressure 125/72 H Blood Pressure Mean 89 Pulse Ox 93 Oxygen Delivery Method Nasal Cannula Oxygen Flow Rate (L/min) 2 Weight Weight: 270 lb Body Mass Index (BMI) 43.5 Results Medical Records Data Attestation: I reviewed the patient's medical records Lab / Micro Data Attestation: I reviewed the patient's lab results. 08/13/25 19:50 08/13/25 19:50 Labs: Laboratory Results - last 24 hr 08/13/25 19:50: WBC 14.4 H, RBC 4.82, Hgb 14.2, Hct 44.3, MCV 91.9, MCH 29.5, MCHC 32.1, RDW Std Deviation 49.4 H, RDW Coeff of Drew 14.6, Plt Count 325, MPV 10.2, Immature Gran % (Auto) 0.300, Neut % (Auto) 75.7 H, Lymph % (Auto) 16.8 L, [place] % (Auto) 6.1, Eos % (Auto) 0.8, Baso % (Auto) 0.3, Absolute Neuts (auto) 10.9 H, Absolute Lymphs (auto) 2.41, Nucleated RBC % 0, PT 14.4, INR 1.1, APTT 28.3, Sodium 139, Potassium 3.9, Chloride 102, Carbon Dioxide 23.1, Anion Gap 14, BUN 13, Creatinine 0.85, Estim Creat Clear Calc 92.79, Est GFR (MDRD) Non-Af 78, BUN/Creatinine Ratio 14.7, Glucose 95, Calcium 9.2, Total Bilirubin 0.36, Direct Bilirubin 0.19, AST 33 H, ALT 29, Alkaline Phosphatase 101, Total Protein 6.9, Albumin 3.7, Globulin 3.2 08/13/25 20:52: Urine Color Yellow, Urine Clarity Clear, Urine pH 6.0, Ur Specific [place] 1.010, Urine Protein 15 H, Urine Glucose (UA) Normal, Urine Ketones Negative, Urine Occult Blood Negative, Urine Nitrite Negative, Urine Bilirubin Negative, Urine Urobilinogen Normal, Ur Leukocyte Esterase 25 H, Urine RBC 0-5 SEEN, Urine WBC 5-10 SEEN, Ur Squamous Epith Cells 5-10 SEEN, Ur Transition Epith Cell 0-5 SEEN, Urine Bacteria 0 SEEN, Urine Mucus 0 SEEN Imaging Radiology Impression Brain CT 08/13/25 19:31 IMPRESSION: No acute abnormality Reading Location: [facility] Cervical Spine CT 08/13/25 19:31 IMPRESSION: Negative for fracture Reading Location: [facility] Chest/Abdomen/Pelvis CT 08/13/25 19:31 IMPRESSION: No acute abnormality Reading Location: [facility] Assessment & Plan Assessment/Plan (1) Acute cystitis without hematuria: (2) Leukocytosis: QUALIFIERS: Leukocytosis type: unspecified Qualified Code(s): D72.829 - Elevated white blood cell count, unspecified (3) Complication of Wahl catheter: QUALIFIERS: Encounter type: initial encounter Qualified Code(s): T83.9XXA - Unspecified complication of genitourinary prosthetic device, implant and graft, initial encounter (4) Morbid obesity with BMI of 40.0-44.9, adult: PLAN: Plan 1. Leukocytosis of 14.4 K present on admission with UA weakly positive for Acute Cystitis; without hematuria due to Chronic Wahl - Admit to general medical floor. Continue empiric IV ceftriaxone begun in the ER and await culture & sensitivity data. Change Wahl. Give acetaminophen prn for [id number] (level 1-5/10) pain or fever. Give oxycodone prn for severe (level 6-10/10) pain. 2. Ambulatory Dysfunction with Frequent Falls complicating #1 - PT/OT and Case Management to consult and treat on-rounds in the AM for further recommendations with help appreciated in advance. 3. Morbid (class III) obesity; with BMI of 43.6 this admission adding to the burden of disease outlined #1 & #2 - Weight loss will be recommended. Check TSH. This complicates her case and may hamper recovery. 4. Depression with anxiety; on amitriptyline - Present therapy to continue as before. 5. Former tobacco abuse - Noted. 6. Migraine headaches - Stable no complaints related to this issue at this time. 7. History of hysterectomy - Noted. 8. History of cholecystectomy - Noted. 9. OA - We will give acetaminophen prn as outlined in #1. 10. DVT prophylaxis - Enoxaparin 40 mg sq BID plus SCD's. Total time: Approximately (but not less than) 55 minutes. Charges/Coding Visit Charges Inpatient E&M: 73968 Init Hosp L2
[2025-08-14] VITALS (8 sets, daily range): BP systolic 115–151; BP diastolic 68–84; PULSE 76–94; RESP 16–20; TEMP 35.8–37.1; O2SAT 87–96; BMI 44.1; BMI 43.9
[2025-08-14 01:26] LABS: Magnesium 2.1 mg/dL (1.5-2.2)
[2025-08-14] MEDS: 0.9% Normal Saline (1000mL) 1,000 ML 100 ML IV (01:32)
[2025-08-14] MEDS: Scopolamine 1mg/72hr Patch 1 PATCH TD (01:34)
[2025-08-14 01:59] LABS: Vitamin B12 1011 pg/mL (180-914)
[2025-08-14 06:47] LABS: Hematocrit 43.4 % (37-47); Hemoglobin 13.1 g/dL (12.0-15.0); Immature Granulocytes Count 0.030 X10^3/uL (0.0-0.0); Mean Corp Hgb Conc 30.2 g/dL (32-36); Mean Corpuscular Volume 95.6 fL (81-99); Mean Platelet Vol. 10.4 fl (6.2-12.0); NRBC Flagged by Analyzer 0 % (0-5); Platelet Count 258 K/mm3 (150-450); RBC Distribution Width CV 14.6 % (11.6-14.6); RBC Distribution Width SD 51.0 fl (35.1-43.9); Red Blood Count 4.54 M/mm3 (4.2-5.4); White Blood Count 9.8 K/mm3 (4.4-11.0)
[2025-08-14] MEDS: 0.9% Saline Lock 10 ML Syringe IV ×2 (06:54→13:27)
[2025-08-14 07:07] LABS: AST(SGOT) 29 U/L (<=31); Alanine Aminotransfer ALT/SGPT 25 U/L (<=34); Albumin, Serum 3.2 g/dL (3.4-4.8); Alkaline Phosphatase 87 U/L (35-104); Anion Gap 9 (5-15); BUN 10 mg/dL (4-19); BUN/Creat Ratio 12.8 RATIO (10-20); Calcium,Total 8.2 mg/dL (7.6-11.0); Carbon Dioxide 25.4 mmol/L (21.0-32.0); Chloride 106 mmol/L (98-108); Estimated Creatinine Clearance 100.56 ml/min (50-250); Globulin 2.8 g/dL (2.2-4.2); Glucose 105 mg/dL (70-99); Potassium 3.4 mmol/L (3.3-5.1)
[2025-08-14 07:22] LABS: FOLATES,SERUM (FOLIC ACID) 7.90 ng/mL (4.60-34.80)
[2025-08-14 07:52] LABS: Cholesterol 124 mg/dL (<=200); Low Density Lipoprotein Calc. 54 mg/dL; Triglycerides 67 mg/dL; Very Low Density Lipoprotein 13 mg/dL (5-40); cholesterol:hdl ratio screen 2.21
[2025-08-14] MEDS: Lactobacillis Acidophilus 1 CAP PO ×2 (08:53→13:27)
[2025-08-14] MEDS: oxyCODONE HCl Cr 10 MG Tablet 40 MG PO (09:06)
--- NOTE | 2025-08-14 11:40 | CASEMGMT ---
Addendum entered by Maicol Camilo 08/14/25 13:35: Per Dr Pollock, pt to discharge home today. RN ALICIA to room. Pt made aware and states is okay with this. Signed scripts for OP PT and tub bench provided to pt. She voices appreciation. Home O2 amb pulse ox has been completed. Pt qualifies for O2 @ 1 L/M. Dr Pollock in room talking w/pt at this time. He was made aware that pt qualifies for 1 L/M O2. He states pt does not need home O2 & advised pt to take her incentive spirometer home to use. Pt voices understanding. Original Note: RN CM ASSESSMENT RN CM to room to meet with patient for initial transition planning/care coordination assessment. RN ALICIA introduced self and role at [facility]. Pt voices understanding and consents to assessment at this time. Pt resting in bed in no distress at this time. Pt is A/O at this time and answers all questions appropriately. Care providers, pharmacy, and demographics verified/updated at this time. PCP: Dr Orlando Specialists: Dr Ramsey-pain management Preferred Pharmacy: [facility] Insurance: [facility] Prescription Benefit: Yes LNOK: SonReynold. Son, Margarito. Daughter, Savana Living Arrangements: Lives alone in downstairs apartment w/approx total of 13 steps to go down. She states she is independent w/ADL's and IADL's and denies difficulty navigating the steps. Transportation: Pt states drives self and states no transportation concerns at this time. DME: Pt denies using or having any DME @ home. She would like a tub bench (denies wanting backrest) and would like medical alert info. Medical alert info provided. Pt made aware RN ALICIA unsure if her insurance will cover for a tub bench or not, but a script can be provided and she can take to any DME location of choice. She was made aware tub bench cannot be obtained for her over the weekend and she voices is okay with this and that she will f/u about this on her own once she discharges. She was provided w/list of local DME companies. Also made aware of other locations this can be purchased. She voices appreciation. Discussed walker. Pt states she does not want a walker @ discharge, stating she does not need one and states she thinks she would just end up tripping over it anyway. HHC/SNF: No hx of either. Discussed discharge planning. Pt states she has fallen twice this past week, but states it was d/t tripping over things, not d/t her legs giving out. She states she has a lot of clutter in her home and she also states she does not pay attention sometimes and falls over things. She does state, though, she is having some generalized weakness. She declines needing or wanting to go to a SNF @ [facility]. Also discussed HHC. She states she is not homebound and states she will not be homebound when returning home. Discussed OP therapy. She states she has done this in the past @ [facility] and thinks she would really benefit from this again. She states would like to go to [facility] this time, though. She was made aware a script can be provided @ discharge and she can take to any location of choice & instructed on use of script. She requested [facility] info and this was provided. Pt wishes to return home and states has no concerns with going home at time of discharge & denies having further discharge needs or concerns. Pt voices no further concerns/needs at this time. PLAN: Home w/script for OP therapy and script for tub bench. Lorenza ALSTON RN CM
--- NOTE | 2025-08-14 13:41 | DCINST_ITS ---
Discharge Instructions DC O2, CPAP, BIPAP needs Home O2 Discharge instructions: No Dressing / Incision Discharge Activity: Return to Normal Activity Dressing / Incision Call your doctor if you observe: Fever of 101 or Higher, Shortness of breath, Dizziness, Fainting spells, Swelling in the ankles, Chest pain and Increased palpitations (irregular heartbeat) Follow Up Care Test Results: Test results from this visit will be discussed in further detail at your follow- up appointment, if applicable. Discharge Plan Admission Admit Date/Time: 08/13/25 23:30 Attending Provider: Carter Pollock Primary Care Provider: KAYKAY CAROLINA Consulting Providers: Jomar Bosch Discharge Orders/Prescriptions Prescriptions: Continued amitriptyline 100 MG tablet 150 mg PO QHS scopolamine base 1 mg over 3 days patch 3 day 1 patch topical Q3D Xtampza ER 18 mg cap,sprinkl,ER12hr(DONT CRUSH) 18 mg PO BID Trulicity 0.75 mg/0.5 mL pen injector 0.75 mg subcut QWEEK Referrals / Follow Up: Gretta Baltazar CNS [Non-Staff, Family Practice] KAYKAY CAROLINA MD [Primary Care Provider, Family Practice] - Within 1 Week Disposition Disposition (needs filled in before D/C Order can be placed): Home, Self Care
--- NOTE | 2025-08-14 13:43 | DS.PCM_ITS ---
Providers Date of Admission: 08/13/25 Primary Care Physician: KAYKAY CAROLINA MD Reason For Visit: ACUTE CYSTITIS W/ LEUKOCYTOSIS AND AMBULATORY Diagnosis Discharge Diagnosis (1) Acute cystitis without hematuria: Status: Acute Code(s): N30.00 - Acute cystitis without hematuria (2) Leukocytosis: Status: Acute Code(s): D72.829 - Elevated white blood cell count, unspecified Qualifiers: Leukocytosis type: unspecified Qualified Code(s): D72.829 - Elevated white blood cell count, unspecified (3) Complication of Wahl catheter: Status: Acute Code(s): T83.9XXA - Unspecified complication of genitourinary prosthetic device, implant and graft, initial encounter Qualifiers: Encounter type: initial encounter Qualified Code(s): T83.9XXA - Unspecified complication of genitourinary prosthetic device, implant and graft, initial encounter (4) Morbid obesity with BMI of 40.0-44.9, adult: Status: Acute Code(s): E66.01 - Morbid (severe) obesity due to excess calories; Z68.41 - Body mass index [BMI] 40.0-44.9, adult Medications at Discharge Home Medications amitriptyline 100 mg tablet 150 mg PO QHS sleep 08/15/20 oxycodone myristate 18 mg capsule sprinkle extended release 12hr(DON'T CRUSH) (Xtampza ER) 18 mg PO BID pain 08/13/25 scopolamine base 1 mg over 3 days transdermal patch 1 patch topical Q3D nausea 08/13/25 dulaglutide 0.75 mg/0.5 mL subcutaneous pen injector (Trulicity) 0.75 mg subcut QWEEK prediabetes 08/14/25 Hospital Course Operations None Procedures None Summary of Care Provided Minutes Spent on Discharge: 34 Hospital Course: Per HPI: SIS WHITNEY, is a 59 F with a past medical history of morbid (class III) obesity; with BMI of 43.6 this admission, former tobacco abuse, depression with anxiety; on amitriptyline, migraine headaches, chronic indwelling Wahl catheter, history of hysterectomy, history of cholecystectomy and OA who presents to [facility] ER complaining of ambulatory dysfunction with frequent falls. Ms. Whitney reports her symptoms began approximately 1 week prior to admission when she fell for the first time followed by a second time earlier today around 2 PM when she fell and hit her head on the door but did not lose consciousness or have significant traumatic injury. She states she feels extremely weak and her legs are just suddenly giving out on her with patient frustrated due to long wait time in the ER and when she tried to leave her legs suddenly gave out and she had a third fall with patient also noted to be transiently hypoxic at 80% on RA. Patient admits to headache but denies fever, chills lightheadedness, dizziness, double vision, discharge from eyes, chest pain, palpitations, heart racing, shortness of breath, cough, abdominal pain, nausea, vomiting, diarrhea, constipation, dysuria, hematuria or rash. In the ER she was noted to have a Leukocytosis of 14.4 K present on admission with UA weakly positive for Acute Cystitis; without hematuria complicated by clinical evidence of ambulatory dysfunction with frequent falls with patient also undergoing head CT which revealed no acute abnormality followed by CT of C-spine which showed no evidence of fracture in addition to CT scan of the chest abdomen and pelvis with IV contrast that revealed no acute abnormality. She was then admitted to the general medical floor for ongoing care for state that is expected to extend beyond 2 midnights. Hospital Course: 1. Ambulatory dysfunction with frequent falls with leukocytosis–59-year-old female presented to the hospital after having multiple falls. She was found to have a low bit of hypoxia though this resolved on its own. She did need 1 L with ambulation today however she refused to have the oxygen requirement on discharge. It was felt that her leukocytosis could be due to a UTI so she did receive a dose of Rocephin in the emergency room however her UA was negative for bacteria and only had 25 leukocyte esterase therefore I do not think that this qualifies as a UTI at this time and discontinued her antibiotics. We did discuss that if she develops fevers and chills, or dysuria that she can call her primary care doctor who can get her on antibiotics as an outpatient. She states that she has a sister at home who is on hospice, she expressed understanding of the risks and benefits of going home and would like to go home today. I did provide her with outpatient physical therapy and we discussed the need to follow-up with her PCP in 3 to 5 days. Physical Exam Narrative General: Alert, Oriented x3, Cooperative, No apparent distress HEENT: Atraumatic, PERRLA, EOMI, Normocephalic Oral: Moist Mucosa Neck: Supple, No JVD Lungs: Diminished, Normal air movement, No rhonchi, No wheeze, No rales Cardiovascular: Regular rate, Regular Rhythm, Normal S1, Normal S2, No murmurs Abdomen: Soft, Non Tender, Non-Distended, No Hepato-splenomegaly Extremities: No edema, Capillary Refill Less than 3 Seconds Skin: No rashes, No breakdown Musculoskeletal: No Tenderness to Palpation of Joints or Extremities Neurological: No focal neurological deficits, moves all extremities Psych/Mental Status: Normal Affect, Appropriate Weight / BMI Weight Weight: 273 lb 5.971 oz Body Mass Index (BMI) 43.9 ABG / Lab / Microbiology Data 08/14/25 06:16 08/14/25 06:16 Laboratory: Laboratory Results - last 24 hr 08/13/25 19:50: WBC 14.4 H, RBC 4.82, Hgb 14.2, Hct 44.3, MCV 91.9, MCH 29.5, MCHC 32.1, RDW Std Deviation 49.4 H, RDW Coeff of Drew 14.6, Plt Count 325, MPV 10.2, Immature Gran % (Auto) 0.300, Neut % (Auto) 75.7 H, Lymph % (Auto) 16.8 L, [place] % (Auto) 6.1, Eos % (Auto) 0.8, Baso % (Auto) 0.3, Absolute Neuts (auto) 10.9 H, Absolute Lymphs (auto) 2.41, Nucleated RBC % 0, PT 14.4, INR 1.1, APTT 28.3, Sodium 139, Potassium 3.9, Chloride 102, Carbon Dioxide 23.1, Anion Gap 14, BUN 13, Creatinine 0.85, Estim Creat Clear Calc 92.79, Est GFR (MDRD) Non-Af 78, BUN/Creatinine Ratio 14.7, Glucose 95, Hemoglobin A1c 6.2 H, Calcium 9.2, Magnesium 2.1, Total Bilirubin 0.36, Direct Bilirubin 0.19, AST 33 H, ALT 29, Alkaline Phosphatase 101, Total Protein 6.9, Albumin 3.7, Globulin 3.2, TSH 1.960 08/13/25 20:52: Urine Color Yellow, Urine Clarity Clear, Urine pH 6.0, Ur Specific [place] 1.010, Urine Protein 15 H, Urine Glucose (UA) Normal, Urine Ketones Negative, Urine Occult Blood Negative, Urine Nitrite Negative, Urine Bilirubin Negative, Urine Urobilinogen Normal, Ur Leukocyte Esterase 25 H, Urine RBC 0-5 SEEN, Urine WBC 5-10 SEEN, Ur Squamous Epith Cells 5-10 SEEN, Ur Transition Epith Cell 0-5 SEEN, Urine Bacteria 0 SEEN, Urine Mucus 0 SEEN 08/14/25 06:16: WBC 9.8, RBC 4.54, Hgb 13.1, Hct 43.4, MCV 95.6, MCH 28.9, MCHC 30.2 L D, RDW Std Deviation 51.0 H, RDW Coeff of [place] 14.6, Plt Count 258, MPV 10.4, Immature Gran % (Auto) 0.300, Neut % (Auto) 63.8, Lymph % (Auto) 24.8, [place] % (Auto) 8.0, Eos % (Auto) 2.6, Baso % (Auto) 0.5, Absolute Neuts (auto) 6.2, Absolute Lymphs (auto) 2.43, Nucleated RBC % 0, Sodium 140, Potassium 3.4, Chloride 106, Carbon Dioxide 25.4, Anion Gap 9, BUN 10, Creatinine 0.79, Estim Creat Clear Calc 100.56, Est GFR (MDRD) Non-Af 85, BUN/Creatinine Ratio 12.8, G lucose 105 H, Calcium 8.2, Phosphorus 3.6, Total Bilirubin 0.24, AST 29, ALT 25, Alkaline Phosphatase 87, Total Protein 6.0, Albumin 3.2 L, Globulin 2.8, Albumin/Globulin Ratio 1.2, Triglycerides 67, Cholesterol 124, LDL Cholesterol, Calc 54, VLDL Cholesterol 13, HDL Cholesterol 56, Cholesterol/HDL Ratio 2.21, Serum Folate 7.90 08/14/25 19:50: Vitamin B12 1011 H Radiography Diagnostic Testing: Radiology Impression Brain CT 08/13/25 19:31 IMPRESSION: No acute abnormality Reading Location: [facility] Cervical Spine CT 08/13/25 19:31 IMPRESSION: Negative for fracture Reading Location: [facility] Chest/Abdomen/Pelvis CT 08/13/25 19:31 IMPRESSION: No acute abnormality [facility] Instructions Call your doctor if you observe: Fever of 101 or Higher, Shortness of breath, Dizziness, Fainting spells, Swelling in the ankles, Chest pain and Increased palpitations (irregular heartbeat) DC O2, CPAP, BIPAP Needs Home O2 Discharge instructions: No Meaningful Use Info Meaningful Use Meaningful Use Diagnoses (Choose all that apply): None applicable Discharge Plan Admission Admit Date/Time: 08/13/25 23:30 Attending Provider: Carter Pollock Primary Care Provider: KAYKAY CAROLINA Consulting Providers: Jomar Bosch Discharge Orders/Prescriptions Prescriptions: Continued amitriptyline 100 MG tablet 150 mg PO QHS scopolamine base 1 mg over 3 days patch 3 day 1 patch topical Q3D Xtampza ER 18 mg cap,sprinkl,ER12hr(DONT CRUSH) 18 mg PO BID Trulicity 0.75 mg/0.5 mL pen injector 0.75 mg subcut QWEEK Referrals / Follow Up: Gretta Baltazar CNS [Non-Staff, Family Practice] KAYKAY CAROLINA MD [Primary Care Provider, Family Practice] - Within 1 Week Disposition Disposition (needs filled in before D/C Order can be placed): Home, Self Care Charges/Coding Visit Charges Inpatient E&M: 17068 Disch Hosp >30min
== END 2025-08-14 16:30 | disposition home or self-care (01) | DRG 815 ==
LOC: ED 23:17 → MS3 23:40
PROVIDERS: Admitting Provider Internal Medicine; Emergency Provider Emergency Medicine; PCP Internal Medicine; Visit Provider Family Medicine
DX: D72.829 Elevated white blood cell count, unspecified (principal); Z68.41 Body mass index [BMI] 40.0-44.9, adult; E66.01 Morbid (severe) obesity due to excess calories; F32.A Depression, unspecified; F41.9 Anxiety disorder, unspecified; G43.909 Migraine, unspecified, not intractable, without status migrainosus; M19.90 Unspecified osteoarthritis, unspecified site; S00.91XA Abrasion of unspecified part of head, initial encounter; W01.198A Fall on same level from slipping, tripping and stumbling with subsequent striking against other object, initial encounter; R09.02 Hypoxemia; E66.813 Obesity, class 3; Z23 Encounter for immunization; R53.1 Weakness; R29.6 Repeated falls; Z79.85 Long-term (current) use of injectable non-insulin antidiabetic drugs; Z87.891 Personal history of nicotine dependence
CPT/HCPCS: 36415; 70450; 71260; 72125; 74177; 80048; 80053; 80061; 80076; 81001; 82607; 82746; 83036; 83735; 84100; 84443; 85025; 85610; 85730; 90715; 93005; 94668; 97162; 97165; 99285; P9612; Q9967; A4216; J2405